=== PATIENT | female | born 1975 | race Hispanic/Latino ===

== ENCOUNTER 2021-06-18 08:07 | Emergency (ER) | payer BC ==
--- OUTSIDE RECORDS SUMMARY | 2021-06-18 08:10 | XMS REPORT | Continuity of Care Document ---
:1975 Author Organization [facility] t Address [address] [place] [address] Care Team Providers Name Role Phone Igor Nieves Primary Care Physician Ethan CASH Attending Clinician ETHAN Attending Clinician Franky NOLAN Attending Clinician Payers Payer Name Policy Type Policy Number Effective Date Expiration Date S ource Problems Condition Condition Condition Status Onset Resolution Last Treating Co mments Source Name Details Category Date Date Treatment Clinician Date Controlled Controlled Disease Active 2020-02 N PI:183 type 2 type 2 2- [id number] diabetes diabetes 00:00: mellitus mellitus 00 without without complicati complicati on, on, without without long-term long-term current current use of use of insulin insulin Uncontroll Uncontroll Disease Active N PI:183 ed type 2 ed type 2 06-06 1318 781 diabetes diabetes 00:00: mellitus mellitus 00 with with hyperglyce hyperglyce santosh santosh Acquired Acquired Disease Active NPI:1 83 hypothyroi hypothyroi 06-06 13 60253 dism dism 00:00: 00 Mixed Mixed Disease Active NPI:183 hyperlipid hyperlipid 06-06 13 34085 emia emia 00:00: 00 Essential Essential Disease Active NPI :183 hypertensi hypertensi 06-06 13 91484 on on 00:00: 00 Thyroid Thyroid Disease Active NPI:183 cyst cyst 06-06 [id number] 00:00: 00 Iron Iron Disease Active NPI:183 deficiency deficiency 06-06 62669 anemia due anemia due 00:00: to chronic to chronic 00 blood loss blood loss Other Other Disease Active 2012-02 NPI:183 malaise malaise 0 [id number] and and 00:00: fatigue fatigue 00 Hyperthyro Hyperthyro Disease Active 2012-02 N PI:183 idism idism 0- [id number] 00:00: 00 Allergies, Adverse Reactions, Alerts Allergy Allergy Status Severity Reaction(s) Onset Inactive Treating Comm ents Source Name Type Date Date Clinician NO KNOWN Drug Active NPI:183 ALLERGIE Class [id number] S Social History Social Habit Start Date Stop Date Quantity Comments Source Exposure to 2021-04-22 2021-05-22 Unable to assess NPI:[id number] SARS-CoV-2 00:00:00 15:18:00 (event) Alcohol intake 2021-01-16 2021-01-16 Current NPI:[id number] 00:00:00 00:00:00 non-drinker of alcohol (finding) Tobacco use and 2012-11-20 2012-11-20 Never used NPI:[id number] exposure 00:00:00 00:00:00 [birth year] NPI:[id number] 00:00:00 00:00:00 Smoking Status Start Date Stop Date Source Never smoker Medications Ordered Filled Start Stop Current Ordering Indication Dosage Frequency Signature Comments Components Source Medication Medication Date Date Medication? Clinician (SIG) Name Name empaglifloz Yes [id number] 10mg Take 1 NPI:183 in 4-12 tablet by [id number] (JARDIANCE) 00:00: mouth 10 mg 00 daily. semaglutide Yes [id number] 14mg Take 14 mg NPI:183 (RYBELSUS) 4-12 by mouth 06307 81 14 mg Tab 00:00: every 00 morning. empaglifloz Yes [id number] 10mg Take 1 NPI:183 in 4-12 tablet by [id number] (JARDIANCE) 00:00: mouth 10 mg 00 daily. semaglutide Yes [id number] 14mg Take 14 mg NPI:183 (RYBELSUS) 4-12 by mouth 84711 81 14 mg Tab 00:00: every 00 morning. empaglifloz Yes [id number] 10mg Take 1 NPI:183 in 4-12 tablet by [id number] (JARDIANCE) 00:00: mouth 10 mg 00 daily. semaglutide Yes [id number] 14mg Take 14 mg NPI:183 (RYBELSUS) 4-12 by mouth [id number] 81 14 mg Tab 00:00: every 00 morning. atorvastati 2020-02 Yes [id number] 10mg Take 1 NPI:183 n 10 mg 2-07 tablet by [id number] tablet 00:00: mouth at 00 bedtime. metformin 2020-02 Yes [id number] 1000mg Take 2 NPI:183 ER 500 mg 2-07 tablets by [id number] 24 hr 00:00: mouth 2 tablet 00 (two) times daily with meals. levothyroxi 2020-02 Yes [id number] 100ug Take 1 NPI:183 ne 100 mcg 2-07 tablet by [id number] tablet 00:00: mouth 00 every morning. atorvastati 2020-02 Yes [id number] 10mg Take 1 NPI:183 n 10 mg 2-07 tablet by [id number] tablet 00:00: mouth at 00 bedtime. metformin 2020-02 Yes [id number] 1000mg Take 2 NPI:183 ER 500 mg 2-07 tablets by [id number] 24 hr 00:00: mouth 2 tablet 00 (two) times daily with meals. levothyroxi 2020-02 Yes [id number] 100ug Take 1 NPI:183 ne 100 mcg 2-07 tablet by [id number] tablet 00:00: mouth 00 every morning. atorvastati 2020-02 Yes [id number] 10mg Take 1 NPI:183 n 10 mg 2-07 tablet by [id number] tablet 00:00: mouth at 00 bedtime. metformin 2020-02 Yes [id number] 1000mg Take 2 NPI:183 ER 500 mg 2-07 tablets by [id number] 24 hr 00:00: mouth 2 tablet 00 (two) times daily with meals. levothyroxi 2020-02 Yes [id number] 100ug Take 1 NPI:183 ne 100 mcg 2-07 tablet by [id number] tablet 00:00: mouth 00 every morning. empaglifloz 2020-02- No [id number] 10mg Take 1 NPI:183 in 03-19- tablet by [id number] (JARDIANCE) 00:00: 00:00 mouth 10 mg 00 :00 daily. semaglutide 2020-02- No [id number] 14mg Take 14 mg NPI:183 (RYBELSUS) 03-19-12 by mouth 1318 781 14 mg Tab 00:00: 00:00 every 00 :00 morning. empaglifloz 2020-02- No [id number] 10mg Take 1 NPI:183 in 03-19 tablet by [id number] (JARDIANCE) 00:00: 00:00 mouth 10 mg 00 :00 daily. semaglutide 2020-02 No [id number] 14mg Take 14 mg NPI:183 (RYBELSUS) 03-19 by mouth 1318 781 14 mg Tab 00:00: 00:00 every 00 :00 morning. HYDROCORTIS 2021- No [id number] Apply to NPI:183 ONE-HYDROQU 7- 04-12 area(s) at 1 610623 INONE-TRETI 00:00: 00:00 bedtime. NOIN 00 :00 1-4-0.025 % TOPICAL CREAM HYDROCORTIS 2021- No [id number] Apply to NPI:183 ONE-HYDROQU 7- 04-12 area(s) at 1 167705 INONE-TRETI 00:00: 00:00 bedtime. NOIN 00 :00 1-4-0.025 % TOPICAL CREAM fluconazole 2021- No [id number] 150mg Take 1 NPI:183 150 mg 2-18 04-12 tablet by [id number] tablet 00:00: 00:00 mouth 00 :00 every 10 (ten) days. fluconazole 2021- No [id number] 150mg Take 1 NPI:183 150 mg 2-18 04-12 tablet by [id number] tablet 00:00: 00:00 mouth 00 :00 every 10 (ten) days. citalopram Yes 20mg Take 20 mg N PI:183 (CELEXA) 20 6-07 by mouth 1318 781 mg tablet 15:03: daily. 34 citalopram Yes 20mg Take 20 mg N PI:183 (CELEXA) 20 6-07 by mouth 1318 781 mg tablet 15:03: daily. 34 citalopram Yes 20mg Take 20 mg N PI:183 (CELEXA) 20 6-07 by mouth 1318 781 mg tablet 15:03: daily. 34 Insulin 2021- No Use as NPI:183 [place], 2-05-22 directed, [id number] 81 Disposable, 00:00: 00:00 once (PEN 00 :00 weekly, NEEDLE) 31 DX:E11.9 gauge x 3/16" Ndle Insulin 2021- No Use as NPI:183 [place], 2-15 05-22 directed, [id number] 81 Disposable, 00:00: 00:00 once (PEN 00 :00 weekly, NEEDLE) 31 DX:E11.9 gauge x 3/16" Ndle metoprolol Yes TAKE 1 NPI:1 83 tartrate 25 9-05 TABLET BY 131 8781 mg tablet 00:00: MOUTH 00 TWICE A DAY metoprolol 2017-0 Yes TAKE 1 NPI:1 83 tartrate 25 9-05 TABLET BY 131 8781 mg tablet 00:00: MOUTH 00 TWICE A DAY metoprolol 2017-0 Yes TAKE 1 NPI:1 83 tartrate 25 9-05 TABLET BY 131 8781 mg tablet 00:00: MOUTH 00 TWICE A DAY Vital Signs Vital Name Observation Time Observation Value Comments Source Systolic blood pressure 2021-05-22 20:31:00 118 mm[Hg] Diastolic blood 2021-05-22 20:31:00 80 mm[Hg] NPI:1 [id number] pressure Heart rate 2021-05-22 20:31:00 77 /min NPI:1831 [id number] Body weight 2021-05-22 20:31:00 83.779 kg NPI:1831 [id number] BMI 2021-05-22 20:31:00 31.70 kg/m2 NPI:1831 [id number] Oxygen saturation in 2021-05-22 20:31:00 97 /min Arterial blood by Pulse oximetry Procedures Procedure Date / Time Performed Performing Clinician Martinez e POCT HEMOGLOBIN A1C TEST 2021-05-22 20:41:00 Bouchra Long NPI :[id number] Encounters Start End Encounter Admission Attending Care Care Encounter Source Date/Time Date/Time Type Type Clinicians Facility Department ID 2021-06-13 2021-06-[id number] NPI:183 00:00:00 00:00:00 Secure Msg Bouchra M[facility]IS[facility] [id number] [facility] [id number] [place] [id number] [facility] 2021-05-22 2021-05-22 [facility] [id number] NPI:183 15:30:00 16:17:28 Visit Nefort collins [employer] [id number] [place] [id number] DAWIT?BLEA [id number] [place] [address] [facility] 2021-05-22 2021-05-22 Outpatient R ETHAN [facility] [id number] NPI:183 15:30:00 16:17:28 BOUCHRA [id number] 1 2019-09-01 2019-09-01 [facility] [id number] 00:00:00 00:00:00 Shira ScaliPEC [id number] [facility] [id number] [place] [id number] [facility] Results Test Description Test Time Test Comments Results Result Comments Source POCT HEMOGLOBIN A1C TEST 2021-05-22 20:43:00 Test Item Value Reference Range Interpretation Comme nts POCT HBA1C (test code = 4548-4) 7.5 % 4-6 A Lab Interpretation (test code = 75289-9) Abnormal NPI:[id number] HEMOGLOBIN A1C [id number] 20:43:00 Test Item Value Reference Range Interpretation Comments POCT HBA1C (test code = 4548-4) 7.5 % 4-6 A Lab Interpretation (test code = Abnormal 44187-7)
[2021-06-18 09:25] LABS: Absolute Lymphocytes (CBC) 1.6 K/uL (0.7-4.9); Hematocrit 32.7 % (36.0-45.0); Lymphocytes % 30.9 % (15.3-44.8); MPV 6.7 fL (7.6-11.3)
[2021-06-18 09:52] LABS: Albumin 3.8 g/dL (3.4-5.0); Bilirubin Total 0.7 mg/dL (0.2-1.0); Potassium 4.2 mmol/L (3.5-5.1); Protein, Total 7.8 g/dL (6.4-8.2)
[2021-06-18 10:18] LABS: Urine Blood Negative (Negative); Urine Glucose Trace (Negative); Urine Protein Negative (Negative); Urine Specific Gravity >=1.030 (1.005-1.030)
[2021-06-18 10:47] LABS: SARS-COV-2 RT PCR NEGATIVE (NEGATIVE)
[2021-06-18 10:48] LABS: Blood Morphology Comment NOTED (NOT SEEN); Platelet Estimate ADEQ; White Blood Cell Scan OK (OK)
[2021-06-18] MEDS ORDERED: NA CHLORIDE 0.9% 1,000 ML ONE (10:48)
[2021-06-18] MEDS ORDERED: DIPHENHYDRAMINE 50 MG/ML VIAL ONE (10:48)
[2021-06-18] MEDS ORDERED: METOCLOPRAMIDE 10 MG/2mL INJ ONE (10:48)
[2021-06-18 10:49] LABS: Anisocytosis 1+; Elliptocytes 1+; Hypochromasia 1+; Platelets, Giant FEW; Poikilocytosis 1+
--- NOTE | 2021-06-18 13:18 | EDPHYS ---
Physician Documentation [facility] Name: Rui Cartwright Age: 46 yrs Sex: Female : 1975 Arrival Date: 06/18/2021 Time: 08:08 Bed 26 Private MD: ED Physician Hugo Hayes HPI: 06/18 09:00 This 46 yrs old Female presents to ER via Ambulatory with complaints of jmm Nausea, Headache. 09:00 The patient presents to the emergency department with nausea, vomiting, diarrhea, jmm abdominal pain. Onset: The symptoms/episode began/occurred gradually, 3 day(s) ago. Possible causes: unknown. The symptoms are aggravated by nothing. The symptoms are alleviated by nothing. Associated signs and symptoms: Pertinent positives: abdominal pain. This is a 46 year old female with a history of dm that presents to the ED with complaints of left sided headache which was gradual onset. Patient states she has bene unable to tolerate fluids since yesterday. Also complains of diarrhea with left upper quadrant abdominal pain. . Historical: - Allergies: 08:59 No Known Allergies; iw - PMHx: 08:59 Diabetes mellitus; iw ROS: 09:00 Constitutional: Negative for fever, chills, and weight loss, Cardiovascular: Negative jmm for chest pain, palpitations, and edema, Respiratory: Negative for shortness of breath, cough, wheezing, and pleuritic chest pain. 09:00 Abdomen/GI: Positive for abdominal pain, nausea and vomiting, diarrhea. 09:00 Neuro: Positive for headache. 09:00 All other systems are negative. Exam: 09:00 Constitutional: This is a well developed, well nourished patient who is awake, alert, jmm and in no acute distress. Head/Face: atraumatic. Eyes: EOMI, no conjunctival erythema appreciated ENT: Moist Mucus Membranes Neck: Trachea midline, Supple Chest/axilla: Normal chest wall appearance and motion. Cardiovascular: Regular rate and rhythm. No edema appreciated Respiratory: Normal respirations, no respiratory distress appreciated 09:00 Back: Normal ROM Skin: General appearance color normal MS/ Extremity: Moves all extremities, no obvious deformities appreciated, no edema noted to the lower extremities Neuro: Awake and alert Psych: Behavior is normal, Mood is normal, Patient is cooperative and pleasant 09:00 Abdomen/GI: Inspection: abdomen appears normal, Bowel sounds: normal, Palpation: abdomen is soft and non-tender, in all quadrants. Vital Signs: 08:59 BP 140 / 98; Pulse 83; Resp 16; Temp 98.5; Pulse Ox 99% on R/A; iw 12:00 BP 128 / 82; Pulse 78; Resp 18 S; Pulse Ox 99% on R/A; aa5 MDM: 09:00 Patient medically screened. [facility] 13:16 Data reviewed: vital signs, nurses notes. Counseling: I had a detailed discussion with [facility] the patient and/or guardian regarding: the historical points, exam findings, and any diagnostic results supporting the discharge/admit diagnosis, lab results, the need for outpatient follow up, to return to the emergency department if symptoms worsen or persist or if there are any questions or concerns that arise at home. ED course: No pain on palpation of the abdomen. Patient advised to follow up with pcp and otherwise given strict return precautions. Patient understood and agrees with the plan of care. . 13:16 ED course: Patient states feeling much better on reevaluation. No abdominal pain on [facility] reevaluation. Headache has resolved. I do not suspect meningitis or sah. Patient otherwise given strict return precautions. Patient understood and agrees with the plan of care. . 06/18 09:00 Order name: CBC with Diff; Complete Time: 10:56 [facility] 06/18 09:00 Order name: CMP; Complete Time: 10:08 [facility] 06/18 09:00 Order name: Lipase; Complete Time: 10:08 [facility] 06/18 09:01 Order name: COVID-19/FLU A+B (Document "Date of Onset" if Symptomatic); Complete Time: [facility] 10:47 06/18 10:19 Order name: Urine Dipstick-Ancillary; Complete Time: 10:26 [facility] 06/18 09:00 Order name: IV Saline Lock; Complete Time: 09:14 [facility] 06/18 09:00 Order name: Labs collected and sent; Complete Time: 09:14 [facility] 06/18 09:00 Order name: Urine Dipstick-Ancillary (obtain specimen); Complete Time: 10:22 [facility] 06/18 10:49 Order name: CBC Smear Scan; Complete Time: 10:56 EDMS Administered Medications: 10:08 CANCELLED (other medication usedd): Zofran (Ondansetron) 4 mg IVP once; over 2 minutes [facility] 10:51 Drug: NS 0.9% 1000 ml Route: IV; Rate: 1 bolus; Site: right antecubital; aa5 12:00 Follow up: IV Status: Completed infusion; IV Intake: 1000ml 10:51 Drug: Reglan (metoCLOPramide) 20 mg Route: IVP; Site: right antecubital; aa5 11:20 Follow up: Response: No adverse reaction aa5 10:51 Drug: diphenhydrAMINE 12.5 mg Route: IVP; Site: right antecubital; aa5 11:00 Follow up: Response: No adverse reaction aa5 Disposition Summary: 06/18/21 13:18 Discharge Ordered Location: Home [facility] Condition: Stable [facility] Diagnosis - Vomiting jmm - Diarrhea, unspecified jmm - Headache jmm Followup: jm - With: Private Physician - When: 2 - 3 days - Reason: Recheck today's complaints, Continuance of care, Re-evaluation by your physician Discharge Instructions: - Discharge Summary Sheet jm - Diarrhea, Adult jmm - Migraine Headache jm - Vomiting, Adult jm Forms: - Medication Reconciliation Form [facility] - Thank You Letter [facility] - Antibiotic Education jmm - Prescription Opioid Use [facility] - Work release form iw Prescriptions: - ondansetron 4 mg Oral tablet,disintegrating - take 1 tablet by ORAL route every 4-6 hours As needed; 20 tablet; Refills: 0, [facility] Product Selection Permitted Signatures: Dispatcher [employer] EDMiles Neri PA PA jmm Williams, Irene, RN RN Elvia Braswell RN RN aa5 Corrections: (The following items were deleted from the chart) 10:08 10:08 Zofran (Ondansetron) 4 mg IVP once; over 2 minutes ordered. [facility]
--- NOTE | 2021-06-18 13:18 | ER ---
Nurse's Notes [facility] Name: Rui Cartwright Age: 46 yrs Sex: Female : 1975 Arrival Date: 06/18/2021 Time: 08:08 Bed 26 Private MD: Diagnosis: Vomiting;Diarrhea, unspecified;Headache Presentation: 06/18 08:58 Chief complaint: Patient states: nausea, vomiting, headache for 3 days , diarrhea iw today. Coronavirus screen: At this time, the client does not indicate any symptoms associated with coronavirus-19. Ebola Screen: Patient negative for fever greater than or equal to 101.5 degrees Fahrenheit, and additional compatible Ebola Virus Disease symptoms Patient denies exposure to infectious person. Patient denies travel to an Ebola-affected area in the 21 days before illness onset. No symptoms or risks identified at this time. Initial Sepsis Screen: Does the patient meet any 2 criteria? No. Patient's initial sepsis screen is negative. Does the patient have a suspected source of infection? No. Patient's initial sepsis screen is negative. Risk Assessment: Do you want to hurt yourself or someone else? Patient reports no desire to harm self or others. Onset of symptoms was June 16, 2021. 08:58 Method Of Arrival: Ambulatory iw 08:58 Acuity: KATE 3 iw Historical: - Allergies: 08:59 No Known Allergies; iw - PMHx: 08:59 Diabetes mellitus; iw Screenin:30 Abuse screen: Denies threats or abuse. Nutritional screening: No deficits noted. aa5 Tuberculosis screening: No symptoms or risk factors identified. Fall Risk None identified. Assessment: 10:30 General: Appears uncomfortable, Behavior is calm, cooperative. Pain: Complains of pain aa5 in left side of head Pain currently is 8 out of 10 on a pain scale. Quality of pain is described as aching, pressure, Pain began 2-3 days ago. Is continuous. Neuro: Level of Consciousness is awake, alert, obeys commands, Oriented to person, place, time, situation. Cardiovascular: Heart tones S1 S2 present Rhythm is regular. Respiratory: Airway is patent Respiratory effort is even, unlabored, Respiratory pattern is regular, symmetrical. GI: Abdomen is round non-distended, Bowel sounds present X 4 quads. Abd is soft and non tender X 4 quads. Reports diarrhea, nausea, vomiting. : No signs and/or symptoms were reported regarding the genitourinary system. EENT: No signs and/or symptoms were reported regarding the EENT system. Derm: Skin is pink, warm \\T\\ dry. Musculoskeletal: Range of motion: intact in all extremities. 10:51 Reassessment: Patient is alert, oriented x 3, equal unlabored respirations, skin aa5 warm/dry/pink. 12:00 Reassessment: Patient is alert, oriented x 3, equal unlabored respirations, skin aa5 warm/dry/pink. Patient states feeling better. 12:00 Pain: Pain currently is 5 out of 10 on a pain scale. aa5 14:45 Reassessment: Patient is alert, oriented x 3, equal unlabored respirations, skin aa5 warm/dry/pink. Patient states feeling better. Patient states symptoms have improved. Vital Signs: 08:59 BP 140 / 98; Pulse 83; Resp 16; Temp 98.5; Pulse Ox 99% on R/A; iw 12:00 BP 128 / 82; Pulse 78; Resp 18 S; Pulse Ox 99% on R/A; aa5 ED Course: 08:08 Patient arrived in ED. am2 08:59 Triage completed. 09:00 [facility] Lewis [facility] 09:00 Hugo Hayes MD is Attending Physician. [facility] 09:14 Candice Duran, SHAY is Primary Nurse. iw 09:14 Inserted saline lock: 20 gauge in right antecubital area, using aseptic technique. iw 10:09 Patient has correct armband on for positive identification. Bed in low position. Call [facility] light in reach. Warm blanket given. j2ee engineer on. Pulse ox on. 10:21 Urine collected: clean catch specimen, cloudy, COVID swab sent to lab. [facility] 10:22 COVID-19/FLU A+B (Document "Date of Onset" if Symptomatic) Sent. [facility] 10:50 Elvia Braswell, SHAY is Primary Nurse. [facility] 14:45 No provider procedures requiring assistance completed. IV discontinued, intact, aa5 bleeding controlled, No redness/swelling at site. Pressure dressing applied. Administered Medications: 10:08 CANCELLED (other medication usedd): Zofran (Ondansetron) 4 mg IVP once; over 2 minutes [facility] 10:51 Drug: NS 0.9% 1000 ml Route: IV; Rate: 1 bolus; Site: right antecubital; aa5 12:00 Follow up: IV Status: Completed infusion; IV Intake: 1000ml [facility] 10:51 Drug: Reglan (metoCLOPramide) 20 mg Route: IVP; Site: right antecubital; aa5 11:20 Follow up: Response: No adverse reaction [facility] 10:51 Drug: diphenhydrAMINE 12.5 mg Route: IVP; Site: right antecubital; aa5 11:00 Follow up: Response: No adverse reaction [facility] Intake: 12:00 IV: 1000ml; Total: 1000ml. 5 Outcome: 13:18 Discharge ordered by . [facility] 14:45 Discharged to home ambulatory. [facility] 14:45 Condition: improved 14:45 Discharge instructions given to patient, Instructed on discharge instructions, follow up and referral plans. medication usage, Demonstrated understanding of instructions, follow-up care, medications, Prescriptions given X 1. 14:51 Patient left the ED. iw Signatures: Miles Lewis PA PA [facility] Candice Duran RN Elvia Solis RN RN aa5 Martinez, Maria Mini Soriano Corrections: (The following items were deleted from the chart) 19:48 10:22 Inserted saline lock: cherie schwartz
[2021-06-18 15:39] VITALS: BP 140/98; TEMP 98.5; O2SAT 99
== END 2021-06-18 14:51 | disposition home or self-care (01) ==
LOC: ER 08:07
DX: R11.2 Nausea with vomiting, unspecified (principal); R51.9 Headache, unspecified; R19.7 Diarrhea, unspecified; E11.9 Type 2 diabetes mellitus without complications; Z20.822 Contact with and (suspected) exposure to COVID-19
CPT/HCPCS: 96361; 85025; 36415; 81003; 83690; 80053; 0240U; 96375; 96374; 99284; J2765; J1200; J7030

== ENCOUNTER 2021-09-06 10:02 | Observation (INO) | payer BC ==
[2021-09-06] MEDS ORDERED: NA CHLORIDE 0.9% 1,000 ML ONE (10:32)
[2021-09-06 10:44] LABS: Absolute Lymphocytes (CBC) 1.9 K/uL (0.7-4.9); Hematocrit 31.8 % (36.0-45.0); Lymphocytes % 38.8 % (15.3-44.8); MCV 66.2 fL (80-100); MPV 6.7 fL (7.6-11.3); RBC Red Blood Cell Count 4.81 M/uL (3.86-4.86)
[2021-09-06 10:56] LABS: Protime INR 1.02
--- NOTE | 2021-09-06 11:00 | RAD REPORT ---
EXAM DESCRIPTION: CT - Head Brain Wo Cont - 09/06/2021 10:53 am CLINICAL HISTORY: Syncope, simple, abnormal neuro exam COMPARISON: HEAD BRAIN W O CONTRAST dated 03/20/2007 TECHNIQUE: All CT scans are performed using dose optimization technique as appropriate and may inclu de automated exposure control or mA/KV adjustment according to patient size. FINDINGS: No intracranial hemorrhage, hydrocephalus or extra-axial fluid collection.No areas of brai n edema or evidence of midline shift. The paranasal sinuses and mastoids are clear. The calvarium is intact. IMPRESSION: No acute intracranial abnormality.
[2021-09-06 11:03] LABS: Albumin 3.8 g/dL (3.4-5.0); Bilirubin Direct 0.2 mg/dL (0-0.2); Bilirubin Total 0.5 mg/dL (0.2-1.0); Magnesium 2.2 mg/dL (1.8-2.4); Potassium 4.3 mmol/L (3.5-5.1); Protein, Total 7.7 g/dL (6.4-8.2); Troponin High Sensitivity 3.1 pg/mL (<58.9)
[2021-09-06 11:05] LABS: SARS-CoV-2 Antigen Rapid Res Negative (Negative)
--- NOTE | 2021-09-06 11:08 | RAD REPORT ---
EXAM DESCRIPTION: RAD - Chest Single View - 09/06/2021 11:01 am CLINICAL HISTORY: COUGH COMPARISON: CHEST SINGLE VIEW dated 10/02/2011; CHEST SINGLE VIEW dated 11/14/2008 FINDINGS: Lines: None. Lungs: No evidence of edema or pneumonia. Pleural: No significant pleural effusions or pneumothorax. Cardiac: Stable size and configuration. Bones: No acute fractures. Other: IMPRESSION: No acute cardiopulmonary disease.
[2021-09-06] MEDS ORDERED: METHYLPREDNISOLONE 125 MG INJ ONE (11:56)
[2021-09-06] MEDS ORDERED: DIPHENHYDRAMINE 50 MG/ML VIAL ONE (11:56)
[2021-09-06] MEDS ORDERED: FAMOTIDINE 20 MG/2 ML VIAL IV ONE (11:57)
[2021-09-06] MEDS ORDERED: NA CHLORIDE 0.9% 2,000 ML ONE (11:57)
[2021-09-06] MEDS ORDERED: FOLIC ACID 5 MG/ML VIAL ONE (11:58)
[2021-09-06] MEDS ORDERED: TENECTEPLASE 50 MG/10 ML VIAL IV ONE (11:59)
--- NOTE | 2021-09-06 12:02 | EDPHYS ---
Physician Documentation [facility] Name: Rui Cartwright Age: 46 yrs Sex: Female : 1975 Arrival Date: 09/06/2021 Time: 10:03 Bed 6 Private MD: ED Physician Hugo Hayes HPI: 09/06 11:52 This 46 yrs old Female presents to ER via EMS with complaints of Near Syncope, issa General Weakness. 11:52 The patient has experienced near-syncope, almost passed out, felt dizzy. Onset: The issa symptoms/episode began/occurred at 09:05. Duration: This was a single episode, that lasted an unknown period of time. Context: the episode(s) was witnessed, by co-worker(s). Associated injury: The patient did not suffer any apparent associated injury. Associated signs and symptoms: The patient has no apparent associated signs or symptoms. Current symptoms: paralysis or paresis, of the left arm and left leg, that is mild. The patient has not experienced similar symptoms in the past. 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 - Social history:: Smoking status: Patient denies any tobacco usage or history of. - Family history:: not pertinent. ROS: 11:52 Constitutional: Negative for fever, chills, and weight loss, Eyes: Negative for injury, issa pain, redness, and discharge, ENT: Negative for injury, pain, and discharge, Neck: Negative for injury, pain, and swelling, Cardiovascular: Negative for chest pain, palpitations, and edema, Respiratory: Negative for shortness of breath, cough, wheezing, and pleuritic chest pain, Abdomen/GI: Negative for abdominal pain, nausea, vomiting, diarrhea, and constipation, Back: Negative for injury and pain, : Negative for injury, bleeding, discharge, and swelling, MS/Extremity: Negative for injury and deformity, Skin: Negative for injury, rash, and discoloration, Psych: Negative for depression, anxiety, suicide ideation, homicidal ideation, and hallucinations, Allergy/Immunology: Negative for hives, rash, and allergies, Endocrine: Negative for neck swelling, polydipsia, polyuria, polyphagia, and marked weight changes, Hematologic/Lymphatic: Negative for swollen nodes, abnormal bleeding, and unusual bruising. 11:52 Neuro: Positive for dizziness, near syncope, weakness, of the left arm and left leg. Exam: 11:52 Constitutional: This is a well developed, well nourished patient who is awake, alert, issa and in no acute distress. Head/Face: Normocephalic, atraumatic. Eyes: Pupils equal round and reactive to light, extra-ocular motions intact. Lids and lashes normal. Conjunctiva and sclera are non-icteric and not injected. Cornea within normal limits. Periorbital areas with no swelling, redness, or edema. ENT: Nares patent. No nasal discharge, no septal abnormalities noted. Tympanic membranes are normal and external auditory canals are clear. Oropharynx with no redness, swelling, or masses, exudates, or evidence of obstruction, uvula midline. Mucous membranes moist. Neck: Trachea midline, no thyromegaly or masses palpated, and no cervical lymphadenopathy. Supple, full range of motion without nuchal rigidity, or vertebral point tenderness. No Meningismus. Chest/axilla: Normal chest wall appearance and motion. Nontender with no deformity. No lesions are appreciated. Cardiovascular: Regular rate and rhythm with a normal S1 and S2. No gallops, murmurs, or rubs. Normal PMI, no JVD. No pulse deficits. Respiratory: Lungs have equal breath sounds bilaterally, clear to auscultation and percussion. No rales, rhonchi or wheezes noted. No increased work of breathing, no retractions or nasal flaring. Abdomen/GI: Soft, non-tender, with normal bowel sounds. No distension or tympany. No guarding or rebound. No evidence of tenderness throughout. Back: No spinal tenderness. No costovertebral tenderness. Full range of motion. Skin: Warm, dry with normal turgor. Normal color with no rashes, no lesions, and no evidence of cellulitis. MS/ Extremity: Pulses equal, no cyanosis. Neurovascular intact. Full, normal range of motion. Psych: Awake, alert, with orientation to person, place and time. Behavior, mood, and affect are within normal limits. 11:52 Neuro: Orientation: to person, place, time, situation, Mentation: is normal, appropriate for stated age, no acute changes, Memory: is normal, appropriate for stated age, no acute changes, Cranial nerves: grossly normal, is grossly normal based on the patient's age, Cerebellar function: is grossly normal, is grossly normal based on the patient's age, no acute changes, Motor: moves all fours, strength is 4/5 in the left arm and left leg, Sensation: light touch is decreased in the left arm and left leg, Gait: not tested. 12:06 ECG was reviewed by the Attending Physician. issa Vital Signs: 10:03 BP 144 / 83; Pulse 65; Resp 18; Temp 98.0; Pulse Ox 100% ; Weight 81.65 kg; Height 5 ap3 ft. 4 in. (162.56 cm); 10:43 BP 115 / 67; Pulse 72; Pulse Ox 100% ; ap3 11:39 BP 136 / 90; Pulse 64; Pulse Ox 100% on R/A; ap3 12:07 BP 128 / 74; Pulse 70; ap3 12:22 BP 122 / 83; Pulse 70; ap3 12:37 BP 114 / 62; Pulse 74; ap3 12:52 BP 136 / 90; Pulse 73; ap3 13:38 BP 114 / 67; Pulse 66; Resp 17; Pulse Ox 100% on R/A; tw2 14:30 BP 118 / 71; Pulse 71; Resp 17; Pulse Ox 99% on R/A; tw2 15:49 BP 112 / 77; Pulse 78; Resp 17; Pulse Ox 98% on R/A; tw2 17:01 BP 121 / 78; Pulse 101; Resp 17; Pulse Ox 98% on R/A; tw2 17:43 BP 125 / 80; Pulse 76; Pulse Ox 98% on R/A; ap3 18:07 BP 117 / 71; Pulse 101; Pulse Ox 100% ; ap3 18:34 BP 126 / 83; Pulse 90; Pulse Ox 98% on R/A; ap3 19:30 BP 114 / 71; Pulse 96; Resp 16; Pulse Ox 97% ; jb4 10:03 Body Mass Index 30.90 (81.65 kg, 162.56 cm) ap3 NIH Stroke Scale Scores: 11:50 NIHSS Score: 3 ap3 11:50 NIHSS Score: 3 issa Zunilda Coma Score: 11:52 Eye Response: spontaneous(4). Verbal Response: oriented(5). Motor Response: obeys [facility] commands(6). Total: 15. MDM: 10:13 Patient medically screened. issa 11:58 Differential Diagnosis: cardiac arrhythmia, cerebrovascular accident. Data reviewed: [facility] vital signs, nurses notes, EMS record, lab test result(s), EKG, radiologic studies, CT scan, MRI, plain films. 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 Test interpretation: by ED physician or midlevel provider: ECG, plain radiologic studies. Counseling: I had a detailed discussion with the patient and/or guardian regarding: the historical points, exam findings, and any diagnostic results supporting the discharge/admit diagnosis, lab results, radiology results, the need for further work-up and treatment in the hospital. 09/06 10:16 Order name: Basic Metabolic Panel; Complete Time: 12:32 [facility] 09/06 10:16 Order name: CBC with Diff; Complete Time: 12:32 [facility] 09/06 10:16 Order name: D-Dimer; Complete Time: 12:32 [facility] 09/06 10:16 Order name: LFT's; Complete Time: 12:32 [facility] 09/06 10:16 Order name: Magnesium; Complete Time: 12:32 [facility] 09/06 10:16 Order name: NT PRO-BNP; Complete Time: 12:32 [facility] 09/06 10:16 Order name: PT-INR; Complete Time: 12:32 [facility] 09/06 10:16 Order name: Troponin HS; Complete Time: 12:32 [facility] 09/06 10:16 Order name: Flu; Complete Time: 12:32 [facility] 09/06 10:16 Order name: SARS RAPID; Complete Time: 12:32 [facility] 09/06 10:50 Order name: CBC Smear Scan; Complete Time: 12:32 [facility] 09/06 11:41 Order name: CRP; Complete Time: 13:36 [facility] 09/06 11:41 Order name: Sed Rate; Complete Time: 13:36 [facility] 09/06 11:50 Order name: Lipid Profile; Complete Time: 12:32 [facility] 09/06 10:16 Order name: XRAY Chest (1 view); Complete Time: 12:32 [facility] 09/06 10:16 Order name: CT Head Brain wo Cont; Complete Time: 12:32 [facility] 09/06 11:45 Order name: CT Head Angio; Complete Time: 13:36 [facility] 09/06 11:45 Order name: CT Neck Angio; Complete Time: 13:59 [facility] 09/06 13:30 Order name: Brain Wo Cont; Complete Time: 13:59 [facility] 09/06 20:20 Order name: Glucose, Ancillary Testing [facility] 09/06 20:38 Order name: Troponin High Sensitivity [facility] 09/06 10:16 Order name: EKG; Complete Time: 10:21 [facility] 09/06 10:16 Order name: Cardiac monitoring; Complete Time: 10:22 [facility] 09/06 10:16 Order name: EKG - Nurse/Tech; Complete Time: 10:30 [facility] 09/06 10:16 Order name: IV Saline Lock; Complete Time: 10:21 [facility] 09/06 10:16 Order name: Labs collected and sent; Complete Time: 10:30 [facility] 09/06 10:16 Order name: O2 Per Protocol; Complete Time: 10:21 [facility] 09/06 10:16 Order name: O2 Sat Monitoring; Complete Time: 10:21 [facility] 09/06 10:16 Order name: Urine Dipstick-Ancillary (obtain specimen); Complete Time: 13:39 [facility] 09/06 10:16 Order name: Urine Test (obtain specimen); Complete Time: 13:39 issa EC:06 Rate is 67 beats/min. Rhythm is regular. QRS [place] is Normal. MS interval is normal. QRS issa interval is normal. QT interval is normal. No Q waves. T waves are Normal. No ST changes noted. Clinical impression: NSR w/ Non-specific ST/T Changes and No evidence of ischemia. Interpreted by me. Reviewed by me. Administered Medications: 10:30 Drug: NS 0.9% 1000 ml Route: IV; Rate: 1 bolus; Site: left antecubital; ap3 13:39 Follow up: IV Status: Completed infusion ap3 12:00 Drug: Pepcid (famotidine) 20 mg Route: IVP; Site: left antecubital; tw2 13:06 Follow up: Response: No adverse reaction tw2 12:00 Drug: NS 0.9% 1000 ml Route: IV; Rate: 125 ml/hr; Site: left antecubital; tw2 12:02 Drug: Benadryl (diphenhydrAMINE) 25 mg Route: IVP; Site: left antecubital; tw2 13:06 Follow up: Response: No adverse reaction tw2 12:04 Drug: foLIC Acid 1 mg Route: IVPB; Site: left antecubital; tw2 12:04 Follow up: IV Status: Completed infusion; IV Intake: 0.2ml tw2 12:07 Drug: TNK FOR STROKE - Tenecteplase 0.25 mg/kg {Co-Signature: tw2 (Delmis Ta ap3 RN).} Route: IV; Rate: per protocol; Site: left antecubital; 12:07 Follow up: IV Status: Completed infusion ap3 13:38 Follow up: Response: No adverse reaction ap3 12:07 Drug: SOLU-Medrol (methylPrednisoLONE) 125 mg Route: IVP; Site: left antecubital; tw2 13:06 Follow up: Response: No adverse reaction tw2 12:14 Drug: Lipitor (atorvastatin) 40 mg Route: PO; tw2 13:06 Follow up: Response: No adverse reaction tw2 Disposition Summary: 09/06/21 12:01 Hospitalization Ordered Hospitalization Status: Inpatient Admission issa Provider: Brock Espinoza cha Location: Intensive Care Unit issa Condition: Fair issa Problem: new issa Symptoms: have improved issa Bed/Room Type: Standard issa Room Assignment: 6-(09/06/21 19:42) Diagnosis - Cerebral infarction, unspecified issa - Dizziness and giddiness issa - Weakness issa - Anemia, unspecified issa Forms: - Medication Reconciliation Form issa - SBAR form issa NIH Stroke Scale - NIH Stroke Score Date: 09/06/2021 Time: 11:50 Total Score = 3 1a. Level of Consciousness (LOC) - 0(Alert) 1b. Level of Consciousness (LOC) (Month \T\ Age) - 0(Both) 1c. LOC Commands (Open \T\ Closes Eyes/Spot Welder Line) - 0(Both) 2. Best Gaze (Lateral Gaze Paresis) - 0(Normal) 3. Visual Field Loss - 0(No visual loss) 4. Facial Palsy - 0(Normal) 5a. Left Arm: Motor (10-second hold) - 1(Drift) 5b. Right Arm: Motor (10-second hold) - 0(No drift) 6a. Left Leg: Motor (5-second hold - always test supine) - 1(Drift) 6b. Right Leg: Motor (5-second hold - always test supine) - 0(No drift) 7. Limb Ataxia (finger/nose \T\ heel/schwarz - test with eyes open) - 0(Absent) 8. Sensory Loss (pinprick arms/legs/face) - 1(Mild to moderate loss) 9. Best Language: Aphasia (description/naming/reading) - 0(No aphasia) 10. Dysarthria (speech clarity - read or repeat words) - 0(Normal) 11. Extinction and Inattention (visual/tactile/auditory/spatial/personal) - 0(No abnormality) Initials: ap3 NIH Stroke Scale - NIH Stroke Score Date: 09/06/2021 Time: 11:50 Total Score = 3 1a. Level of Consciousness (LOC) - 0(Alert) 1b. Level of Consciousness (LOC) (Month \T\ Age) - 0(Both) 1c. LOC Commands (Open \T\ Closes Eyes/Spot Welder Line) - 0(Both) 2. Best Gaze (Lateral Gaze Paresis) - 0(Normal) 3. Visual Field Loss - 0(No visual loss) 4. Facial Palsy - 0(Normal) 5a. Left Arm: Motor (10-second hold) - 1(Drift) 5b. Right Arm: Motor (10-second hold) - 0(No drift) 6a. Left Leg: Motor (5-second hold - always test supine) - 1(Drift) 6b. Right Leg: Motor (5-second hold - always test supine) - 0(No drift) 7. Limb Ataxia (finger/nose \T\ heel/schwarz - test with eyes open) - 0(Absent) 8. Sensory Loss (pinprick arms/legs/face) - 1(Mild to moderate loss) 9. Best Language: Aphasia (description/naming/reading) - 0(No aphasia) 10. Dysarthria (speech clarity - read or repeat words) - 0(Normal) 11. Extinction and Inattention (visual/tactile/auditory/spatial/personal) - 0(No abnormality) Initials: issa Signatures: Dispatcher [employer] EDMS Lata Rebolledo RN Hugo Haji MD MD cha Wise, Tara RN RN tw2 Mini Baez RN RN ap3 Delmis Ta RN tw2 Corrections: (The following items were deleted from the chart) 13:30 11:45 MR STROKE PROTOCOL+MRI.RAD.BRZ ordered. EDMS EDMS 19:42 12:01 issa brown
--- NOTE | 2021-09-06 12:02 | ER ---
Nurse's Notes [facility] Name: Rui Cartwright Age: 46 yrs Sex: Female : 1975 Arrival Date: 09/06/2021 Time: 10:03 Bed 6 Private MD: Diagnosis: Cerebral infarction, unspecified;Dizziness and giddiness;Weakness;Anemia, unspecified Presentation: 09/06 10:03 Chief complaint: EMS states: patient states she was working inside when she began to ap3 feel weak, short of breath and felt a near syncopal episode. Coronavirus screen: At this time, the client does not indicate any symptoms associated with coronavirus-19. Ebola Screen: No symptoms or risks identified at this time. Initial Sepsis Screen: Does the patient meet any 2 criteria? No. Patient's initial sepsis screen is negative. Does the patient have a suspected source of infection? No. Patient's initial sepsis screen is negative. Risk Assessment: Do you want to hurt yourself or someone else? Patient reports no desire to harm self or others. Onset of symptoms was September 06, 2021 at 09:15. 10:03 Method Of Arrival: EMS: [facility] ap3 10:03 Acuity: KATE 3 ap3 10:09 Care prior to arrival: IV initiated. 20 GA, in the left antecubital area. ap3 Triage Assessment: 10:07 General: Appears distressed, Behavior is calm, cooperative. General: Reports fatigue ap3 for. Pain: Denies pain. Neuro: Level of Consciousness is awake, alert, obeys commands, Oriented to person, place, time, situation, Speech is normal. Neuro: Reports a syncopal episode weakness. Cardiovascular: Patient's skin is warm and dry. Respiratory: Airway is patent Respiratory effort is even, unlabored. [employer] REPAIR: 10:08 LMP 08/14/2021 ap3 Historical: - Allergies: 10:06 shrimp; ap3 - Home Meds: 10:06 citalopram oral [Active]; metformin Oral [Active]; Metoprolol Tartrate Oral [Active]; ap3 - PMHx: 10:06 diabetes mellitus; Anxiety; Hypertensive disorder; ap3 - Immunization history:: Client reports receiving the 2nd dose of the Covid vaccine. - Social history:: Smoking status: Patient denies any tobacco usage or history of. - Family history:: not pertinent. Screenin:07 Abuse screen: Denies threats or abuse. Nutritional screening: No deficits noted. ap3 Tuberculosis screening: No symptoms or risk factors identified. 10:08 Fall Risk No fall in past 12 months (0 pts). Secondary diagnosis (15 points) near ap3 syncope. IV access (20 points). Ambulatory Aid- None/Bed Rest/Nurse Assist (0 pts). Gait- Weak (10 pts.). Mental Status- Oriented to own ability (0 pts). Total Paez Fall Scale indicates Low Risk Score (25-44 pts). Fall prevention measures have been instituted. Side Rails Up X 2 Placed close to Nursing Station Frequent Obs/Assesments occuring As available Patient and Family Educated on Fall Prevention Program and strategies. Assessment: 11:36 Reassessment: provider at bedside at this time. tw2 11:43 General: patient informed provider that she started having left sided weakness at 0905 ap3 this morning. . 12:07 Reassessment: [;ease see OV thrombolytic vital sign and neurological flowsheet for ap3 continued NIH and vital signs. 13:38 Reassessment: Patient appears in no apparent distress at this time. No changes from tw2 previously documented assessment. Patient and/or family updated on plan of care and expected duration. Pain level reassessed. Patient is alert, oriented x 3, equal unlabored respirations, skin warm/dry/pink. 14:30 Reassessment: Patient appears in no apparent distress at this time. No changes from tw2 previously documented assessment. Patient and/or family updated on plan of care and expected duration. Pain level reassessed. Patient is alert, oriented x 3, equal unlabored respirations, skin warm/dry/pink. 15:49 Reassessment: Patient appears in no apparent distress at this time. No changes from tw2 previously documented assessment. Patient and/or family updated on plan of care and expected duration. Pain level reassessed. Patient is alert, oriented x 3, equal unlabored respirations, skin warm/dry/pink. 16:27 Reassessment: No changes from previously documented assessment. Patient and/or family ap3 updated on plan of care and expected duration. Pain level reassessed. Patient is alert, oriented x 3, equal unlabored respirations, skin warm/dry/pink. patient states she is feeling her strength return, but isn't quite back to baseline. 17:01 Reassessment: Patient appears in no apparent distress at this time. No changes from tw2 previously documented assessment. Patient and/or family updated on plan of care and expected duration. Pain level reassessed. Patient is alert, oriented x 3, equal unlabored respirations, skin warm/dry/pink. 17:43 Reassessment: No changes from previously documented assessment. Patient and/or family ap3 updated on plan of care and expected duration. Pain level reassessed. Patient is alert, oriented x 3, equal unlabored respirations, skin warm/dry/pink. 18:13 Reassessment: No changes from previously documented assessment. Patient and/or family ap3 updated on plan of care and expected duration. Pain level reassessed. Patient is alert, oriented x 3, equal unlabored respirations, skin warm/dry/pink. 18:32 Reassessment: No changes from previously documented assessment. Patient and/or family ap3 updated on plan of care and expected duration. Pain level reassessed. Patient is alert, oriented x 3, equal unlabored respirations, skin warm/dry/pink. 19:30 Reassessment: Patient appears in no apparent distress at this time. Patient and/or jb4 family updated on plan of care and expected duration. Pain level reassessed. Patient is alert, oriented x 3, equal unlabored respirations, skin warm/dry/pink. Vital Signs: 10:03 BP 144 / 83; Pulse 65; Resp 18; Temp 98.0; Pulse Ox 100% ; Weight 81.65 kg; Height 5 ap3 ft. 4 in. (162.56 cm); 10:43 BP 115 / 67; Pulse 72; Pulse Ox 100% ; ap3 11:39 BP 136 / 90; Pulse 64; Pulse Ox 100% on R/A; ap3 12:07 BP 128 / 74; Pulse 70; ap3 12:22 BP 122 / 83; Pulse 70; ap3 12:37 BP 114 / 62; Pulse 74; ap3 12:52 BP 136 / 90; Pulse 73; ap3 13:38 BP 114 / 67; Pulse 66; Resp 17; Pulse Ox 100% on R/A; tw2 14:30 BP 118 / 71; Pulse 71; Resp 17; Pulse Ox 99% on R/A; tw2 15:49 BP 112 / 77; Pulse 78; Resp 17; Pulse Ox 98% on R/A; tw2 17:01 BP 121 / 78; Pulse 101; Resp 17; Pulse Ox 98% on R/A; tw2 17:43 BP 125 / 80; Pulse 76; Pulse Ox 98% on R/A; ap3 18:07 BP 117 / 71; Pulse 101; Pulse Ox 100% ; ap3 18:34 BP 126 / 83; Pulse 90; Pulse Ox 98% on R/A; ap3 19:30 BP 114 / 71; Pulse 96; Resp 16; Pulse Ox 97% ; jb4 10:03 Body Mass Index 30.90 (81.65 kg, 162.56 cm) ap3 Zunilda Coma Score: 11:52 Eye Response: spontaneous(4). Verbal Response: oriented(5). Motor Response: obeys issa commands(6). Total: 15. NIH Stroke Scale Scores: 11:50 NIHSS Score: 3 ap3 11:50 NIHSS Score: 3 [facility] ED Course: 10:03 Patient arrived in ED. tw2 10:03 Mini Baez, RN is Primary Nurse. ap3 10:05 Triage completed. ap3 10:08 Arm band placed on right wrist. ap3 10:08 Patient has correct armband on for positive identification. Placed in gown. Bed in low ap3 position. Call light in reach. Side rails up X2. Pulse ox on. NIBP on. Door closed. Noise minimized. 10:09 Maintain EMS IV. Dressing intact. Good blood return noted. Site clean \T\ dry. Gauge \T\ ap 3 site: 20g left AC. 10:13 Hugo Hayes MD is Attending Physician. issa 10:54 CT Head Brain wo Cont In Process Unspecified. EDMS 11:03 XRAY Chest (1 view) In Process Unspecified. EDMS 12:00 Brock Espinoza is Hospitalizing Provider. issa 13:05 CT Head Angio In Process Unspecified. EDMS 13:09 CT Neck Angio In Process Unspecified. EDMS 13:31 Brain Wo Cont In Process Unspecified. EDMS 18:32 No provider procedures requiring assistance completed. ap3 19:27 Primary Nurse role handed off by Mini Baez, RN em1 21:04 Patient admitted, IV remains in place. jb4 Administered Medications: 10:30 Drug: NS 0.9% 1000 ml Route: IV; Rate: 1 bolus; Site: left antecubital; ap3 13:39 Follow up: IV Status: Completed infusion ap3 12:00 Drug: Pepcid (famotidine) 20 mg Route: IVP; Site: left antecubital; tw2 13:06 Follow up: Response: No adverse reaction tw2 12:00 Drug: NS 0.9% 1000 ml Route: IV; Rate: 125 ml/hr; Site: left antecubital; tw2 12:02 Drug: Benadryl (diphenhydrAMINE) 25 mg Route: IVP; Site: left antecubital; tw2 13:06 Follow up: Response: No adverse reaction tw2 12:04 Drug: foLIC Acid 1 mg Route: IVPB; Site: left antecubital; tw2 12:04 Follow up: IV Status: Completed infusion; IV Intake: 0.2ml tw2 12:07 Drug: TNK FOR STROKE - Tenecteplase 0.25 mg/kg {Co-Signature: tw2 (Delmis Ta ap3 RN).} Route: IV; Rate: per protocol; Site: left antecubital; 12:07 Follow up: IV Status: Completed infusion ap3 13:38 Follow up: Response: No adverse reaction ap3 12:07 Drug: SOLU-Medrol (methylPrednisoLONE) 125 mg Route: IVP; Site: left antecubital; tw2 13:06 Follow up: Response: No adverse reaction tw2 12:14 Drug: Lipitor (atorvastatin) 40 mg Route: PO; tw2 13:06 Follow up: Response: No adverse reaction tw2 Medication: 11:36 VIS not applicable for this client. tw2 Intake: 12:04 IV: 0ml; Total: 0ml. tw2 Outcome: 12:01 Decision to Hospitalize by Provider. issa 21:03 Admitted to ICU accompanied by nurse, via stretcher, room 6, on monitor, with chart, jb4 Report called to Gisele 21:03 Condition: stable 21:03 Discharge instructions given to patient, family, Instructed on the need for admit, Demonstrated understanding of instructions. 21:04 Patient left the ED. jb4 NIH Stroke Scale - NIH Stroke Score Date: 09/06/2021 Time: 11:50 Total Score = 3 1a. Level of Consciousness (LOC) - 0(Alert) 1b. Level of Consciousness (LOC) (Month \T\ Age) - 0(Both) 1c. LOC Commands (Open \T\ Closes Eyes/[employer]) - 0(Both) 2. Best Gaze (Lateral Gaze Paresis) - 0(Normal) 3. Visual Field Loss - 0(No visual loss) 4. Facial Palsy - 0(Normal) 5a. Left Arm: Motor (10-second hold) - 1(Drift) 5b. Right Arm: Motor (10-second hold) - 0(No drift) 6a. Left Leg: Motor (5-second hold - always test supine) - 1(Drift) 6b. Right Leg: Motor (5-second hold - always test supine) - 0(No drift) 7. Limb Ataxia (finger/nose \T\ heel/schwarz - test with eyes open) - 0(Absent) 8. Sensory Loss (pinprick arms/legs/face) - 1(Mild to moderate loss) 9. Best Language: Aphasia (description/naming/reading) - 0(No aphasia) 10. Dysarthria (speech clarity - read or repeat words) - 0(Normal) 11. Extinction and Inattention (visual/tactile/auditory/spatial/personal) - 0(No abnormality) Initials: ap3 NIH Stroke Scale - NIH Stroke Score Date: 09/06/2021 Time: 11:50 Total Score = 3 1a. Level of Consciousness (LOC) - 0(Alert) 1b. Level of Consciousness (LOC) (Month \T\ Age) - 0(Both) 1c. LOC Commands (Open \T\ Closes Eyes/[employer] Learning [employer]) - 0(Both) 2. Best Gaze (Lateral Gaze Paresis) - 0(Normal) 3. Visual Field Loss - 0(No visual loss) 4. Facial Palsy - 0(Normal) 5a. Left Arm: Motor (10-second hold) - 1(Drift) 5b. Right Arm: Motor (10-second hold) - 0(No drift) 6a. Left Leg: Motor (5-second hold - always test supine) - 1(Drift) 6b. Right Leg: Motor (5-second hold - always test supine) - 0(No drift) 7. Limb Ataxia (finger/nose \T\ heel/schwarz - test with eyes open) - 0(Absent) 8. Sensory Loss (pinprick arms/legs/face) - 1(Mild to moderate loss) 9. Best Language: Aphasia (description/naming/reading) - 0(No aphasia) 10. Dysarthria (speech clarity - read or repeat words) - 0(Normal) 11. Extinction and Inattention (visual/tactile/auditory/spatial/personal) - 0(No abnormality) Initials: issa Signatures: Dispatcher [employer] EDHugo Reveles MD MD cha Martinez, Eric em1 Delmis Ta, RN RN tw2 Victor M Jones RN RN jb4 Mini Baez RN RN ap3 Delmis Ta RN tw2
[2021-09-06 12:16] LABS: Blood Morphology Comment NOTED (NOT SEEN); Platelet Estimate ADEQ; White Blood Cell Scan OK (OK)
[2021-09-06 12:17] LABS: Anisocytosis 1+; Hypochromasia 1+
[2021-09-06] MEDS ORDERED: ATORVASTATIN 20 MG TAB ONE (12:19)
--- NOTE | 2021-09-06 13:28 | RAD REPORT ---
EXAM DESCRIPTION: CT - Head angio - 09/06/2021 1:03 pm CLINICAL HISTORY: Neuro deficit, acute, stroke suspected TECHNIQUE: During dynamic enhancement using nonionic IV contrast, axial 1 millimeter thick images of the head were obtained. Sagittal and axial reconstruction images were generated using MIP technique and reviewed. All CT scans are performed using dose optimization technique as appropriate and may include automated exposure control or mA/KV adjustment according to patient size. COMPARISON: CT head same date FINDINGS: No aneurysm or vascular malformation identified. Major venous sinuses are patent. No stenosis, named branch occlusion, vasculitis or other significant vascular finding identifiable. Left vertebral artery is dominant as a normal anatomic variant. Right vertebral artery appears to ter minate at the posteroinferior cerebellar artery as a normal variant. The right A1 BANG segment is smal l or absent with most or all of the right BANG circulation provided by the left-side. IMPRESSION: Negative CT angio head examination for acute finding.
--- NOTE | 2021-09-06 13:38 | RAD REPORT ---
EXAM DESCRIPTION: CT - Neck Angio - 09/06/2021 1:07 pm CLINICAL HISTORY: Neuro deficit, acute, stroke suspected TECHNIQUE: During dynamic enhancement using nonionic IV contrast, axial 2 mm thick images of the nec k were obtained. Sagittal and axial reconstruction images were generated using MIP technique and revi ewed. All CT scans are performed using dose optimization technique as appropriate and may include automated exposure control or mA/KV adjustment according to patient size. COMPARISON: CT head same date, CT angio head same date FINDINGS: No aneurysm or vascular malformation identified. No carotid or vertebral dissection. No aortic arch or great vessel origin abnormality seen. Vertebral artery origins unremarkable as well . Left vertebral artery is dominant with a small right vertebral artery terminating at the posteroinf erior cerebellar artery. This is a normal anatomic variant. No stenosis, vasculitis or other significant carotid artery finding. IMPRESSION: Negative CT angio neck examination.
--- NOTE | 2021-09-06 13:43 | RAD REPORT ---
EXAM DESCRIPTION: MRI - Brain Wo Cont - 09/06/2021 1:29 pm CLINICAL HISTORY: cva COMPARISON: MRI BRAIN W WO CONTRAST dated 03/20/2007 TECHNIQUE: Sagittal T1-weighted images were obtained along with axial PD, heavily T2-weighted and T2 -FLAIR images. Axial DWI and ADC mapping sequences were also obtained along with coronal heavily T2-w eighted images. FINDINGS: No intracranial hemorrhage, mass or acute infarction. No cortical edema or sulcal effaceme nt. There is no edema or shift of midline structures. No extra-axial fluid collections. Ortiz-matter/w karolina matter junction is preserved. Signal voids are seen as a normal finding in the major intracrania l vessels. No atrophy changes are present. Ventricles normal. Rare T2/IR hyperintense foci seen in the cerebral white matter. These are nonspecific at this age. Early chronic ischemic change is possible. Vasculiti s or migraine headache etiologies are possible. Demyelinization is unlikely. Significance of these fo ci is doubtful. Mastoid air cells and paranasal sinuses are clear. IMPRESSION: No acute infarction changes are present. As detailed above, no acute intracranial finding seen.
--- NOTE | 2021-09-06 16:02 | P.HP ---
Certification for Inpatient Patient admitted to: Observation With expected LOS: <2 Midnights Practitioner: I am a practitioner with admitting privileges, knowledge of patient current condition, hospital course, and medical plan of care. Services: Services provided to patient in accordance with Admission requirements found in Title 42 Section 412.3 of the Code of Federal Regulations Patient History Date of Service: 09/06/21 Reason for admission: Near syncope History of Present Illness: 46-year-old woman with a history of hypertension and diabetes presented to the emergency department with a complaint of sudden onset dizziness and a feeling of fainting. Symptoms occurred at the workplace, patient was in a standing position when she felt the symptoms. She stated she did not lose consciousness. Symptoms associated with chest tightness, no palpitation. She denied any prior nausea or vomiting or diarrhea or any reason for dehydration. Work-up in the emergency department has been unremarkable, MRI of the brain negative for acute CVA, CTA head and neck unremarkable, initial troponin negative, EKG shows no significant ischemic changes. Patient placed under observation for further management. Allergies No Known Allergies Allergy (Unverified 07/10/11 13:11) - Past Medical/Surgical History -: Hypertension -: Diabetes -: Hypothyroidism -: Hyperlipidemia - Family History Mother -: Hypertension, Diabetes - Social History Smoking Status: Never smoker Alcohol use: Yes Place of Residence: Home Review of Systems Other: Except as documented, all other systems reviewed and negative. Physical Examination - Physical Exam General: In no apparent distress, Oriented x3 HEENT: Atraumatic, PERRLA, Mucous membr. moist/pink, EOMI, Sclerae nonicteric Neck: Supple, JVD not distended, No Thyromegaly Respiratory: Clear to auscultation bilaterally, Normal air movement Cardiovascular: No edema, Regular rate/rhythm, Normal S1 S2, No murmurs Capillary refill: <2 Seconds Gastrointestinal: Normal bowel sounds, Soft and benign, Non-distended, No tenderness Musculoskeletal: No swelling, No tenderness Integumentary: No rashes, No cyanosis Neurological: Normal speech, Normal strength at 5/5 x4 extr, Cranial nerves 3-12 intact Lymphatics: No axilla or inguinal lymphadenopathy - Studies Laboratory Data (last 24 hrs) 09/06/21 10:34: Triglycerides 134, Cholesterol 120, HDL Cholesterol 44, Cholesterol/HDL Ratio 2.73 09/06/21 10:34: PT 11.2, INR 1.02 09/06/21 10:34: WBC 5.0, Hgb 9.8 L, Hct 31.8 L, Plt Count 421 H 09/06/21 10:34: Sodium 137, Potassium 4.3, BUN 6 L, Creatinine 0.67, Glucose 144 H, Magnesium 2.2, Total Bilirubin 0.5, AST 17, ALT 33, Alkaline Phosphatase 119 H Microbiology Data (last 24 hrs): 09/06/21 10:34 Nasopharnyx Influenza Type A Antigen Screen - Final 09/06/21 10:34 Nasopharnyx Influenza Type B Antigen Screen - Final Assessment and Plan - Problems (Diagnosis) (1) Near syncope Current Visit: Yes Status: Acute (2) DM type 2 (diabetes mellitus, type 2) Current Visit: Yes Status: Acute (3) Hypertension Current Visit: Yes Status: Acute (4) Hypothyroidism Current Visit: Yes Status: Acute (5) Microcytic anemia Current Visit: Yes Status: Acute - Plan Place patient under observation. Obtain echocardiogram. Of note, MRI of the brain, head and neck CTA all unremarkable. Patient with microcytic anemia. Check iron profile Hydrate with normal saline. Monitor H&H and transfuse as needed for hemoglobin less than 8 due to high possibility of symptomatic anemia. Reconcile and continue other home meds. Continue antihypertensives. Check TSH. Trend troponin. - Advance Directives Does patient have a Living Will: No Does patient have a Durable POA for Healthcare: No
[2021-09-06] MEDS: NA CHLORIDE 0.9% 1,000 ML IV SCH (19:34)
[2021-09-06] MEDS: INSULIN -REGULAR HUMAN 50 UNIT/0.5 ML ML SQ SCH ×2 (19:34→22:10)
[2021-09-06] MEDS ORDERED: INSULIN -REGULAR HUMAN 50 UNIT/0.5 ML ML ONE (20:24)
[2021-09-06 21:30] VITALS: BMI 31.2
[2021-09-06 21:52] VITALS: O2SAT 97
[2021-09-07 04:55] LABS: Absolute Lymphocytes (CBC) 1.4 K/uL (0.7-4.9); Hematocrit 30.1 % (36.0-45.0); Lymphocytes % 16.4 % (15.3-44.8); MCV 65.4 fL (80-100); MPV 6.8 fL (7.6-11.3)
[2021-09-07 05:14] LABS: Magnesium 2.3 mg/dL (1.8-2.4); Potassium 3.9 mmol/L (3.5-5.1); Thyroid Stimulating Hormone 0.512 uIU/mL (0.360-3.740)
[2021-09-07] MEDS: NA CHLORIDE 0.9% 1,000 ML IV SCH ×2 (05:34→08:38)
[2021-09-07] MEDS: INSULIN -REGULAR HUMAN 50 UNIT/0.5 ML ML SQ SCH ×2 (07:30→11:32)
[2021-09-07] MEDS ORDERED: ENOXAPARIN 40 MG/0.4 ML SQ SCH (09:00)
[2021-09-07] MEDS ORDERED: ACETAMINOPHEN 325 MG TABLET PO PRN (11:21)
--- NOTE | 2021-09-07 13:42 | P.DS ---
Admission Date: 09/06/21 Discharge Date: 09/07/21 Disposition: ROUTINE DISCHARGE Discharge Condition: FAIR Reason for Admission: Near syncope - Problems (1) Near syncope Current Visit: Yes Status: Acute (2) DM type 2 (diabetes mellitus, type 2) Current Visit: Yes Status: Acute (3) Hypertension Current Visit: Yes Status: Acute (4) Hypothyroidism Current Visit: Yes Status: Acute (5) Microcytic anemia Current Visit: Yes Status: Acute Brief History of Present Illness: 46-year-old woman with a history of hypertension and diabetes presented to the emergency department with a complaint of sudden onset dizziness and a feeling of fainting. Symptoms occurred at the workplace, patient was in a standing position when she felt the symptoms. She stated she did not lose consciousness. Symptoms associated with chest tightness, no palpitation. She denied any prior nausea or vomiting or diarrhea or any reason for dehydration. Patient reported left-sided weakness. Work-up in the emergency department was unremarkable, MRI of the brain negative for acute CVA, CTA head and neck unremarkable, initial troponin negative, EKG shows no significant ischemic changes. Patient given tPA for suspected stroke in the ED. She was placed under observation for further management. Hospital Course: Patient placed on observation in the ICU for post tPA monitoring. She had no lateralizing signs, no limb weakness. Patient was asymptomatic during the hospital stay. Repeat CT head no acute intracranial abnormality or hemorrhage. Clinically stable and ambulatory. Patient deemed stable for discharge. Noted she has microcytic anemia. Patient prescribed oral iron supplementation. Vital Signs/Physical Exam: Temp Pulse Resp BP Pulse Ox 97.9 F 80 17 112/69 98 09/07/21 08:00 09/07/21 09:00 09/07/21 09:00 09/07/21 09:00 09/07/21 08:00 General: Alert, In no apparent distress HEENT: Mucous membr. moist/pink Neck: JVD not distended Respiratory: Clear to auscultation bilaterally, Normal air movement Cardiovascular: Regular rate/rhythm, Normal S1 S2 Gastrointestinal: Soft and benign, Non-distended, No tenderness Musculoskeletal: No swelling Integumentary: No rashes Neurological: Normal speech, Normal strength at 5/5 x4 extr, Cranial nerves 3-12 intact Laboratory Data at Discharge: WBC 8.2 K/uL (4.3-10.9) D 09/07/21 04:30 Hgb 9.5 g/dL (12.0-15.0) L 09/07/21 04:30 Hct 30.1 % (36.0-45.0) L 09/07/21 04:30 Plt Count 441 K/uL (152-406) H 09/07/21 04:30 PT 11.2 SECONDS (9.5-12.5) 09/06/21 10:34 INR 1.02 09/06/21 10:34 Sodium 139 mmol/L (136-145) 09/07/21 04:30 Potassium 3.9 mmol/L (3.5-5.1) 09/07/21 04:30 BUN 12 mg/dL (7-18) 09/07/21 04:30 Creatinine 0.57 mg/dL (0.55-1.3) 09/07/21 04:30 Glucose 171 mg/dL (74-106) H 09/07/21 04:30 Phosphorus 3.0 mg/dL (2.5-4.9) 09/07/21 04:30 Magnesium 2.3 mg/dL (1.8-2.4) 09/07/21 04:30 Total Bilirubin 0.5 mg/dL (0.2-1.0) 09/06/21 10:34 AST 17 U/L (15-37) 09/06/21 10:34 ALT 33 U/L (12-78) 09/06/21 10:34 Alkaline Phosphatase 119 U/L (45-117) H 09/06/21 10:34 Triglycerides 134 mg/dL (<150) 09/06/21 10:34 Cholesterol 120 mg/dL (<200) 09/06/21 10:34 HDL Cholesterol 44 mg/dL (40-60) 09/06/21 10:34 Cholesterol/HDL Ratio 2.73 09/06/21 10:34 Home Medications: Aspirin [Aspirin EC 81 MG] 81 mg PO DAILY #30 09/07/21 Atorvastatin Calcium [Lipitor*] 10 mg PO DAILY 09/07/21 Empagliflozin [Jardiance] 10 mg PO DAILY 09/07/21 Escitalopram Oxalate [Lexapro] 20 mg PO DAILY 09/07/21 Iron Polysaccharide Complex [Polysaccharide Iron] 150 mg PO DAILY #30 09/07/21 Levothyroxine [Synthroid*] 100 mcg PO DAILY 09/07/21 Metformin HCl 1,000 mg PO BID 09/07/21 Metoprolol Succinate [Toprol Xl*] 25 mg PO BID 09/07/21 Semaglutide [Rybelsus] 14 mg PO DAILY 09/07/21 New Medications: Aspirin [Aspirin EC 81 MG] 81 mg PO DAILY #30 Iron Polysaccharide Complex [Polysaccharide Iron] 150 mg PO DAILY #30 Physician Discharge Instructions: PROBLEM: Near Syncope GOAL: Clear understanding of disease process INSTRUCTIONS: Please follow up with your PCP in 1-2 weeks. Aspirin EC 81mg Daily was prescribed. Please take as directed. If symptoms worsen, please go to the ER. If you have any questions regarding hospital stay, feel free to call [phone]. Diet: ADA Activity: Ad enma DME DME: Date Ordered: Name of Company: [employer] Services Needed: None Name of Company: Date or Referral: IMMUNIZATION Influenza Vaccine Indicated: Influenza Vaccine Given: Date Given: Pneumonia Vaccine Indicated: No Pneumonia Vaccine Given: Date Given: Diet: ADA Activity: Ad enma Followup: Sebastian Nieves DO, DO [Primary Care Provider] -
--- NOTE | 2021-09-07 14:30 | RAD REPORT ---
EXAM DESCRIPTION: CT - Head Brain Wo Cont - 09/07/2021 2:21 pm CLINICAL HISTORY: 24h post TNK Headache, drowsiness, CVA symptomology COMPARISON: Head angio dated 09/06/2021; Head Brain Wo Cont dated 09/06/2021 TECHNIQUE: All CT scans are performed using dose optimization technique as appropriate and may inclu de automated exposure control or mA/KV adjustment according to patient size. FINDINGS: No intracranial hemorrhage, hydrocephalus or extra-axial fluid collection.No areas of brai n edema or evidence of midline shift. The paranasal sinuses and mastoids are clear. The calvarium is intact. IMPRESSION: No acute intracranial abnormality.
--- NOTE | 2021-09-07 15:23 | EKG ---
Test Date: 2021-09-06 Test Time: 10:15:50 Record Clerk Salesperson: DANIELLE MEASUREMENT RESULTS: Intervals: Rate: 67 VT: 146 QRSD: 76 QT: 392 QTc: 414 [place]: P: 37 VT: 146 QRS: 12 T: -28 INTERPRETIVE STATEMENTS: Normal sinus rhythm Nonspecific T wave abnormality Abnormal ECG Compared to ECG 10/02/2011 09:49:57 No significant changes Electronically Signed On 09-07-21 15:20:10 CDT by Isreal Gonzalez
[2021-09-07 17:10] VITALS: BP 119/81; TEMP 97.9
--- NOTE | 2021-09-10 06:52 | ECHO ---
HEIGHT: 5 ft 4 in WEIGHT: 180 lb 0 oz DATE OF STUDY: 09/07/[address]: Brock Espinoza MD 2-DIMENSIONAL: YES M.MODE: YES DOPPLER: YES COLOR FLOW: YES TDS: PORTABLE: YES DEFINITY: BUBBLE STUDY: DIAGNOSIS: STROKE CARDIAC HISTORY: CATHERIZATION: NO SURGERY: NO PROSTHETIC VALVE: NO PACEMAKER: NO MEASUREMENTS (cm) DIASTOLIC (NORMALS) SYSTOLIC (NORMALS) IVSd 1.1 (0.6-1.2) LA Diam 3.5 (1.9-4.0) LVEF 57% LVIDd 3.7 (3.5-5.7) LVIDs 2.6 (2.0-3.5) %FS 29% LVPWd 1.1 (0.6-1.2) Ao Diam 2.2 (2.0-3.7) 2 DIMENSIONAL ASSESSMENT: RIGHT ATRIUM: NORMAL LEFT ATRIUM: NORMAL RIGHT VENTRICLE: NORMAL LEFT VENTRICLE: NORMAL TRICUSPID VALVE: NORMAL MITRAL VALVE: NORMAL PULMONIC VALVE: NORMAL AORTIC VALVE: NORMAL PERICARDIAL EFFUSION: NONE AORTIC ROOT: NORMAL LEFT VENTRICULAR WALL MOTION: NORMAL DOPPLER/COLOR FLOW: MILD TRICUSPID REGURGITATION. MILD MITRAL REGURGITATION. COMMENTS: NORMAL LEFT VENTRICULAR EJECTION FRACTION 55-60%. NORMAL WALL MOTION. MILD TRICUSPID REGURGITATION. MILD MITRAL REGURGITATION. NORMAL DIASTOLIC FUNCTION. RECOMMEND BUBBLE STUDY. TECHNOLOGIST: BHARAT CANO
== END 2021-09-07 16:40 | disposition home or self-care (01) ==
LOC: ER 10:02 → ERHOLD 15:42 → 3RD-ICU 20:31
PROVIDERS: ADMIT Internal Medicine; ATTEND Internal Medicine
DX: R55 Syncope and collapse (principal); R53.1 Weakness; D50.9 Iron deficiency anemia, unspecified; R42 Dizziness and giddiness; E11.9 Type 2 diabetes mellitus without complications; I10 Essential (primary) hypertension; E03.9 Hypothyroidism, unspecified; E78.5 Hyperlipidemia, unspecified; Z79.84 Long term (current) use of oral hypoglycemic drugs; Z79.899 Other long term (current) drug therapy; Z91.013 Allergy to seafood; Z20.822 Contact with and (suspected) exposure to COVID-19; Z82.49 Family history of ischemic heart disease and other diseases of the circulatory system; Z83.3 Family history of diabetes mellitus
CPT/HCPCS: 96361; 92977; 93005; 93306; 85025 ×2; 80048 ×2; 36415; 83735 ×2; 84100; 85610; 80061; 82947 ×4; 85379; 80076; 85652; 84443; 84484 ×3; 83540; 83880; 84466; 86140; 87804 ×2; 70450 ×2; 70496; 70498; 71045; 70551; 97116; 97161; 94760; 96375; 96374; 99285; 87811; Q9967; J1200; J1815 ×3; J3101; J1650; J7030 ×3; J2930; J3490; G0378 ×3

== ENCOUNTER 2021-10-15 05:08 | Emergency (ER) | payer BC ==
--- OUTSIDE RECORDS SUMMARY | 2021-10-15 05:11 | XMS REPORT | Continuity of Care Document ---
:1975 Author Organization [facility] t Address [address] [place] [address] Care Team Providers Name Role Phone Tavo Nieves Primary Care Physician Bouchra Long MD Attending Clinician Shira Marino Attending Clinician [phone] Payers Payer Name Policy Type Policy Number Effective Date Expiration Date S ource Problems Condition Condition Condition Status Onset Resolution Last Treating Co mments Source Name Details Category Date Date Treatment Clinician Date Controlled Controlled Disease Active 2020-02 U michael type 2 type 2 2-07 ity of diabetes diabetes 00:00: [place] mellitus mellitus 00 Medica l without without Branch complicati complicati on, on, without without long-term long-term current current use of use of insulin insulin Uncontroll Uncontroll Disease Active U michael ed type 2 ed type 2 06-06 ity of diabetes diabetes 00:00: [place] mellitus mellitus 00 Medica l with with Branch hyperglyce hyperglyce santosh santosh Acquired Acquired Disease Active Unive rs hypothyroi hypothyroi 06-06 it y of dism dism 00:00: Medical Branch Mixed Mixed Disease Active Univers hyperlipid hyperlipid 06-06 it y of emia emia 00:00: [place] 00 Medical Branch Essential Essential Disease Active Uni vers hypertensi hypertensi - it y of on on 00:00: Medical Branch Thyroid Thyroid Disease Active 2021-0 Univers cyst cyst 4-27 ity of 00:00: [place] 00 [facility] Iron Iron Disease Active Univers deficiency deficiency 4-27 it y of anemia due [place] chronic to chronic 00 Me dical blood loss blood loss Br anch Other Other Disease Active 2012-02 Univers malaise malaise 0-11 ity of and and 00:00: [place] fatigue fatigue 00 Medical Branch Hyperthyro Hyperthyro Disease Active 2012-02 U nivers idism idism 0-11 ity of 00:00: [place] 00 [facility] Allergies, Adverse Reactions, Alerts This patient has no known allergies or adverse reactions. Social History Social Habit Start Date Stop Date Quantity Comments Source Exposure to 2021-09-15 2021-09-25 Not sure [facility]-CoV-2 00:00:00 14:53:00 [facility] (event) [place] Alcohol intake 2021-01-16 2021-01-16 Current University of 00:00:00 00:00:00 non-drinker of [facility] alcohol (finding) [place] Tobacco use and 2017-12-31 2017-12-31 Smokeless tobacco Un iversity of exposure 00:00:00 00:00:00 non-user [facility] Sex Assigned At [birth year] Universit y of 00:00:00 00:00:00 [facility] Smoking Status Start Date Stop Date Source Never smoked tobacco [facility] Medications Ordered Filled Start Stop Current Ordering Indication Dosage Frequency Signature Comments Components Source Medication Medication Date Date Medication? Clinician (SIG) Name Name atorvastati Yes [id number] 10mg Take 1 Univers n 10 mg 8-16 tablet by ity of tablet 00:00: mouth at [place] 00 bedtime. Medical Branch empaglifloz Yes [id number] 10mg Take 1 Univers in 8-16 tablet by ity of (JARDIANCE[place] 10 mg 00 the Medical morning. Branch levothyroxi Yes [id number] 100ug Take 1 Univers ne 100 mcg 8-16 tablet by ity of tablet 00:00: mouth [place] 00 every Medical morning. Branch metformin Yes [id number] 1000mg Take 2 Univers ER 500 mg 8-16 tablets by ity of 24 hr 00:00: mouth in [place] tablet 00 the Medical morning Branch and 2 tablets in the evening. Take with meals. semaglutide Yes [id number] 14mg Take 14 mg Univers (RYBELSUS) 8-16 by mouth ity o f 14 mg Tab 00:00: every [place] 00 morning. Medical Branch empaglifloz 2021- No [id number] 10mg Take 1 Univers in 05-22-16 tablet by ity of (JARDIANCE) 00:00[place] 00:[place] 10 mg 00 :00 daily. Medical Branch semaglutide 2021- No [id number] 14mg Take 14 mg Univers (RYBELSUS) 05-22-16 by mouth ity of 14 mg Tab 00:00: 00:00 every [place] 00 :00 morning. Medical Branch atorvastati 2020-02- No [id number] 10mg Take 1 Univers n 10 mg 03-19 tablet by ity of tablet 00:00: 00:00 mouth at [place] 00 :00 bedtime. Medical Branch metformin 2020-02- No [id number] 1000mg Take 2 Univers ER 500 mg 03-19- tablets by ity of 24 hr 00:00: 00:00 mouth 2 [place] tablet 00 :00 (two) Medical times Branch daily with meals. levothyroxi 2020-02- No [id number] 100ug Take 1 Univers ne 100 mcg 03-19- tablet by ity of tablet 00:00: 00:00 mouth [place] 00 :00 every Medical morning. Branch citalopram Yes 20mg Take 20 mg U nivers (CELEXA) 20 6-07 by mouth ity of mg tablet 15:03: daily. [place] 34 Medical Branch metoprolol Yes TAKE 1 Unive rs tartrate 25 9-05 TABLET BY ity of mg tablet 00:00: MOUTH [place] 00 TWICE A Medical DAY Branch Vital Signs Vital Name Observation Time Observation Value Comments Source Systolic blood 2021-09-25 20:02:00 121 mm[Hg] [facility] [place] pressure Medical Branch Diastolic blood 2021-09-25 20:02:00 80 mm[Hg] Unive rsity of [place] pressure Medical [place] Heart rate 2021-09-25 20:02:00 69 /min [facility] Body height 2021-09-25 20:02:00 162.6 cm [facility] Body weight 2021-09-25 20:02:00 83.915 kg [facility] BMI 2021-09-25 20:02:00 31.76 kg/m2 [facility] Oxygen saturation 2021-09-25 20:02:00 100 /min [facility] in Arterial blood Medical Br anch by Pulse oximetry Procedures Procedure Date / Time Performed Performing Clinician Sour e POCT HEMOGLOBIN A1C 2021-09-25 20:09:00 Bouchra [facility] Encounters Start End Encounter Admission Attending Care Care Encounter Source Date/Time Date/Time Type Type Clinicians Facility Department ID 2021-09-25 2021-09-25 Office Ethan [facility] [id number] Univers 15:00:00 15:35:41 Visit [facility] [id number] it y of [place] [id number] Da as DAWIT?BLEA [id number] [address] MEDICAL OFFICE BUILDING 2019-09-01 2019-09-01 [facility] [id number] 00:00:00 00:00:00 Shira MULTISPEC [id number] [facility]AL[facility] [id number] CENTER [id number] [facility] Results Test Description Test Time Test Comments Results Result Comments Source POCT HEMOGLOBIN A1C TEST 2021-09-25 20:09:00 Test Item Value Reference Range Interpretation Comme nts POCT HBA1C (test code = 4548-4) 7.5 % 4-6 A Lab Interpretation (test code = 77448-8) Abnormal [facility]
[2021-10-15] MEDS ORDERED: NA CHLORIDE 0.9% 1,000 ML ONE (06:19)
[2021-10-15] MEDS ORDERED: BEBTELOVIMAB 175 MG/2 ML VIAL IV ONE (06:19)
[2021-10-15] MEDS ORDERED: KETOROLAC 30 MG/ML INJ ONE (06:19)
[2021-10-15] MEDS ORDERED: AZITHROMYCIN 250 MG TAB ONE (06:19)
[2021-10-15] MEDS ORDERED: FAMOTIDINE 20 MG TAB ONE (06:19)
[2021-10-15] MEDS ORDERED: ASPIRIN 81 MG CHEWABLE TABLET ONE (06:24)
[2021-10-15 06:32] LABS: Urine Blood Negative (Negative); Urine Glucose 3+ (Negative); Urine Protein Negative (Negative); Urine Specific Gravity >=1.030 (1.005-1.030)
[2021-10-15 06:33] LABS: Absolute Lymphocytes (CBC) 1.1 K/uL (0.7-4.9); Lymphocytes % 27.7 % (15.3-44.8); MPV 6.6 fL (7.6-11.3); RBC Red Blood Cell Count 4.92 M/uL (3.86-4.86)
[2021-10-15 06:42] LABS: MCV 65.1 fL (80-100)
[2021-10-15 06:49] LABS: Albumin 3.8 g/dL (3.4-5.0); Bilirubin Total 0.6 mg/dL (0.2-1.0); Potassium 3.7 mmol/L (3.5-5.1); Protein, Total 7.7 g/dL (6.4-8.2)
--- NOTE | 2021-10-15 07:19 | EDPHYS ---
Physician Documentation [facility] Name: Rui Cartwright Age: 46 yrs Sex: Female : 1975 Arrival Date: 10/15/2021 Time: 05:11 Bed 13 Private MD: ED Physician Hugo Hayes HPI: 10/15 06:08 This 46 yrs old Female presents to ER via Ambulatory with complaints of Back issa Pain, Headache. 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 - Social history:: Smoking status: Patient denies any tobacco usage or history of. ROS: 06:08 Constitutional: Negative for fever, chills, and weight loss, Eyes: Negative for injury, issa pain, redness, and discharge, ENT: Negative for injury, pain, and discharge, Neck: Negative for injury, pain, and swelling, Cardiovascular: Negative for chest pain, palpitations, and edema, Abdomen/GI: Negative for abdominal pain, nausea, vomiting, diarrhea, and constipation, : Negative for injury, bleeding, discharge, and swelling, MS/Extremity: Negative for injury and deformity, Skin: Negative for injury, rash, and discoloration, Psych: Negative for depression, anxiety, suicide ideation, homicidal ideation, and hallucinations, Allergy/Immunology: Negative for hives, rash, and allergies, Endocrine: Negative for neck swelling, polydipsia, polyuria, polyphagia, and marked weight changes, Hematologic/Lymphatic: Negative for swollen nodes, abnormal bleeding, and unusual bruising. 06:08 Respiratory: Positive for cough, with no reported sputum. 06:08 Abdomen/GI: Positive for nausea. 06:08 Back: Positive for flank pain, on the right. Exam: 06:08 Constitutional: This is a well developed, well nourished patient who is awake, alert, issa and in no acute distress. Head/Face: Normocephalic, atraumatic. Eyes: Pupils equal round and reactive to light, extra-ocular motions intact. Lids and lashes normal. Conjunctiva and sclera are non-icteric and not injected. Cornea within normal limits. Periorbital areas with no swelling, redness, or edema. ENT: Nares patent. No nasal discharge, no septal abnormalities noted. Tympanic membranes are normal and external auditory canals are clear. Oropharynx with no redness, swelling, or masses, exudates, or evidence of obstruction, uvula midline. Mucous membranes moist. Neck: Trachea midline, no thyromegaly or masses palpated, and no cervical lymphadenopathy. Supple, full range of motion without nuchal rigidity, or vertebral point tenderness. No Meningismus. Chest/axilla: Normal chest wall appearance and motion. Nontender with no deformity. No lesions are appreciated. Cardiovascular: Regular rate and rhythm with a normal S1 and S2. No gallops, murmurs, or rubs. Normal PMI, no JVD. No pulse deficits. Respiratory: Lungs have equal breath sounds bilaterally, clear to auscultation and percussion. No rales, rhonchi or wheezes noted. No increased work of breathing, no retractions or nasal flaring. Abdomen/GI: Soft, non-tender, with normal bowel sounds. No distension or tympany. No guarding or rebound. No evidence of tenderness throughout. Back: No spinal tenderness. No costovertebral tenderness. Full range of motion. Skin: Warm, dry with normal turgor. Normal color with no rashes, no lesions, and no evidence of cellulitis. MS/ Extremity: Pulses equal, no cyanosis. Neurovascular intact. Full, normal range of motion. Neuro: Awake and alert, GCS 15, oriented to person, place, time, and situation. Cranial nerves II-XII grossly intact. Motor strength 5/5 in all extremities. Sensory grossly intact. Cerebellar exam normal. Normal gait. 06:08 Musculoskeletal/extremity: DVT Exam: No signs of deep vein thrombosis. no pain, no swelling, no tenderness, negative Homans' sign noted on exam, no appreciated bluish discoloration, no erythema, no increased warmth. Vital Signs: 05:25 BP 125 / 75; Pulse 78; Resp 16; Temp 97.5; Pulse Ox 99% on R/A; Weight 83.91 kg (R); kl Height 5 ft. 4 in. (162.56 cm); Pain 10; 06:30 BP 118 / 70; Pulse 87; Resp 16 S; Pulse Ox 98% on R/A; as6 07:45 BP 119 / 77; Pulse 71; Resp 18; Pulse Ox 97% on R/A; kr3 05:25 Body Mass Index 31.75 (83.91 kg, 162.56 cm) kl MDM: 05:19 Patient medically screened. [facility] 06:10 Differential diagnosis: Basilar Pneumonia Fatigue Peptic Ulcer. Data reviewed: vital issa signs, nurses notes, lab test result(s), radiologic studies, plain films. Data interpreted: quality assurance monitor final: rate is 78 beats/min, rhythm is regular, Pulse oximetry: on room air is 99 %. Test interpretation: by ED physician or midlevel provider: plain radiologic studies. 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 10/15 06:07 Order name: CBC with Diff [facility] 10/15 06:07 Order name: Comprehensive Metabolic Panel; Complete Time: 07:10 [facility] 10/15 06:07 Order name: Chest Single View XRAY [facility] 10/15 06:32 Order name: Urine Dipstick-Ancillary; Complete Time: 07:10 [facility] 10/15 06:45 Order name: CBC Smear Scan [facility] 10/15 06:07 Order name: Urine Dipstick-Ancillary (obtain specimen); Complete Time: 06:31 [facility] 10/15 06:07 Order name: Misc. Order: bebtelovimab; Complete Time: 06:31 [facility] Administered Medications: 06:31 Drug: NS 0.9% 1000 ml Route: IV; Rate: 1 bolus; Site: right antecubital; as6 07:48 Follow up: Response: No adverse reaction; IV Status: Completed infusion; IV Intake: kr3 1000ml 06:31 Drug: Zithromax (azithromycin) 500 mg Route: PO; as6 07:48 Follow up: Response: No adverse reaction kr3 06:31 Drug: Pepcid (famotidine) 40 mg Route: PO; as6 07:48 Follow up: Response: No adverse reaction kr3 06:31 Drug: Ketorolac 15 mg Route: IVP; Site: right antecubital; as6 07:47 Follow up: Response: No adverse reaction kr3 06:32 Drug: Aspirin Chewable Tablet 162 mg Route: PO; as6 07:47 Follow up: Response: No adverse reaction kr3 Disposition Summary: 10/15/21 07:18 Discharge Ordered Location: Home issa Problem: new issa Symptoms: have improved issa Condition: Stable issa Diagnosis - Coronavirus infection, unspecified issa - SARS-associated coronavirus as the cause of diseases classified elsewhere issa - Headache issa Followup: issa - With: Private Physician - When: 2 - 3 days - Reason: Recheck today's complaints, Continuance of care, Re-evaluation by your physician Followup: issa - With: - When: 2 - 3 days - Reason: Recheck today's complaints, Continuance of care, Re-evaluation by your physician Discharge Instructions: - Discharge Summary Sheet [facility] - Upper Respiratory Infection, Adult, [id number] [facility] - Viral Respiratory Infection, [id number]-Nogq [facility] - Aspirin and Your Heart [facility] - COVID-19 [facility] - COVID-19 Frequently Asked Questions [facility] - Things to Know about the COVID-19 Pandemic - [facility] - 10 Things You Can Do to Manage Your COVID-19 Symptoms at Home - [facility] - COVID-19: Quarantine vs. Isolation - [facility] - Prevent the Spread of COVID-19 if You Are Sick - [facility] Forms: - Medication Reconciliation Form [facility] - Thank You Letter [facility] - Antibiotic Education [facility] - Prescription Opioid Use [facility] Prescriptions: - dexamethasone 2 mg Oral tablet - take 1 tablet by ORAL route 2 times per day; 10 tablet; Refills: 0, Product issa Selection Permitted - Tessalon Perles 100 mg Oral Capsule - take 1 capsule by ORAL route every 8 hours As needed; 45 capsule; Refills: 0, [facility] Product Selection Permitted - Pepcid 20 mg Oral Tablet - take 1 tablet by ORAL route every 12 hours for 30 days; 60 tablet; Refills: 0, [facility] Product Selection Permitted - Zofran 4 mg Oral Tablet - take 1 tablet by ORAL route every 12 hours As needed; 20 tablet; Refills: 0, issa Product Selection Permitted - Zithromax Z-Vance 250 mg Oral Tablet - take 1 tablet by ORAL route as directed for 5 days Day 1 - take two (2) tablets issa one time. Day 2, 3, 4 , 5 take one (1) tablet once daily.; 6 tablet; Refills: 0, Product Selection Permitted Signatures: Dispatcher [employer] Meliza Sorto RN RN kl Anderson, Corey, MD MD cha Slawson, Ashby, RN RN as6 Allison Barry RN kr3
--- NOTE | 2021-10-15 07:19 | ER ---
Nurse's Notes [facility] Name: Rui Cartwright Age: 46 yrs Sex: Female : 1975 Arrival Date: 10/15/2021 Time: 05:11 Bed 13 Private MD: Diagnosis: Coronavirus infection, unspecified;SARS-associated coronavirus as the cause of diseases classified elsewhere;Headache Presentation: 10/15 05:25 Chief complaint: Patient states: back pain and headache since Friday when diagnosed kl with COVID. Coronavirus screen: Client reports previous positive COVID test result. Date of collection: October 13, 2021. Ebola Screen: Patient negative for fever greater than or equal to 101.5 degrees Fahrenheit, and additional compatible Ebola Virus Disease symptoms. Initial Sepsis Screen: Does the patient meet any 2 criteria? No. Patient's initial sepsis screen is negative. Does the patient have a suspected source of infection? No. Patient's initial sepsis screen is negative. Risk Assessment: Do you want to hurt yourself or someone else? Patient reports no desire to harm self or others. Onset of symptoms was October 13, 2021. 05:25 Method Of Arrival: Ambulatory 05:25 Acuity: KATE 4 kl Triage Assessment: 05:30 General: Appears in no apparent distress. Behavior is calm, cooperative. Pain: kl Complains of pain in forehead. Musculoskeletal: Reports pain in left mid back. 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 - Social history:: Smoking status: Patient denies any tobacco usage or history of. Screenin:35 Abuse screen: Denies threats or abuse. Denies injuries from another. Nutritional as6 screening: No deficits noted. Tuberculosis screening: No symptoms or risk factors identified. Fall Risk None identified. Assessment: 05:35 General: Appears in no apparent distress. Behavior is calm, cooperative. Pain: as6 Complains of pain in back and left mid back and face and forehead. Neuro: Level of Consciousness is awake, alert, Reports headache. Respiratory: Respiratory effort is even, unlabored. 07:15 General: Appears in no apparent distress. uncomfortable, Behavior is calm, cooperative. kr3 07:15 Reassessment: No changes from previously documented assessment. kr3 Vital Signs: 05:25 BP 125 / 75; Pulse 78; Resp 16; Temp 97.5; Pulse Ox 99% on R/A; Weight 83.91 kg (R); kl Height 5 ft. 4 in. (162.56 cm); Pain 10/10; 06:30 BP 118 / 70; Pulse 87; Resp 16 S; Pulse Ox 98% on R/A; as6 07:45 BP 119 / 77; Pulse 71; Resp 18; Pulse Ox 97% on R/A; kr3 05:25 Body Mass Index 31.75 (83.91 kg, 162.56 cm) ED Course: 05:11 Patient arrived in ED. bp1 05:19 Hugo Hayes MD is Attending Physician. issa 05:28 Triage completed. kl 05:30 Jarad Hilliard, SHAY is Primary Nurse. as6 05:35 Arm band placed on. as6 05:35 Bed in low position. Call light in reach. Side rails up X 1. as6 06:25 Inserted saline lock: 20 gauge in right antecubital area, using aseptic technique. as6 Blood collected. 06:35 Chest Single View XRAY In Process Unspecified. EDMS 07:18 Kyle Luu MD is Referral Physician. issa 07:45 No provider procedures requiring assistance completed. IV discontinued, intact, kr3 bleeding controlled, No redness/swelling at site. Pressure dressing applied. Administered Medications: 06:31 Drug: NS 0.9% 1000 ml Route: IV; Rate: 1 bolus; Site: right antecubital; as6 07:48 Follow up: Response: No adverse reaction; IV Status: Completed infusion; IV Intake: kr3 1000ml 06:31 Drug: Zithromax (azithromycin) 500 mg Route: PO; as6 07:48 Follow up: Response: No adverse reaction kr3 06:31 Drug: Pepcid (famotidine) 40 mg Route: PO; as6 07:48 Follow up: Response: No adverse reaction kr3 06:31 Drug: Ketorolac 15 mg Route: IVP; Site: right antecubital; as6 07:47 Follow up: Response: No adverse reaction kr3 06:32 Drug: Aspirin Chewable Tablet 162 mg Route: PO; as6 07:47 Follow up: Response: No adverse reaction kr3 Medication: 07:46 VIS not applicable for this client. kr3 Intake: 07:48 IV: 1000ml; Total: 1000ml. kr3 Outcome: 07:18 Discharge ordered by MD. parsons 07:46 Discharged to home kr3 07:46 Condition: stable 07:46 Discharge instructions given to patient, Instructed on discharge instructions, follow up and referral plans. medication usage, Demonstrated understanding of instructions, follow-up care, medications, Prescriptions given X 5 07:49 Patient left the ED. kr3 Signatures: Dispatcher [employer] EDMS Meliza Jalloh RN RN Hugo Meade MD MD cha Paniauga, Brittany bp1 Slawson, Ashby, RN RN as6 Allison Barry RN RN kr3 Corrections: (The following items were deleted from the chart) 07:45 07:43 General: Appears in no apparent distress. uncomfortable, Behavior is calm, kr3 cooperative, kr3
[2021-10-15 08:01] LABS: Platelet Estimate ADEQ; White Blood Cell Scan OK (OK)
[2021-10-15 08:02] LABS: Anisocytosis 1+; Blood Morphology Comment NOTED (NOT SEEN); Hypochromasia 2+
[2021-10-15 08:32] VITALS: TEMP 97.5
[2021-10-15 08:37] VITALS: BP 119/77; O2SAT 97
--- NOTE | 2021-10-15 14:00 | RAD REPORT ---
EXAM DESCRIPTION: RAD - Chest Single View - 10/15/2021 6:34 am CLINICAL HISTORY: cough COMPARISON: August 2021 FINDINGS: The lungs appear clear of acute infiltrate. The heart is normal size
== END 2021-10-15 07:49 | disposition home or self-care (01) ==
LOC: ER 05:08
DX: U07.1 COVID-19 (principal); E11.9 Type 2 diabetes mellitus without complications; I10 Essential (primary) hypertension; Z91.013 Allergy to seafood
CPT/HCPCS: 96361; 85025; 36415; 81003; 80053; 71045; 96374; 99284; J7030

== ENCOUNTER 2022-10-26 10:03 | Emergency (ER) | payer BC ==
--- OUTSIDE RECORDS SUMMARY | 2022-10-26 10:12 | XMS REPORT | Continuity of Care Document ---
:1975 Author Organization [facility] t Address [address] [facility] [address] [place] [id number] Care Team Providers Name Role Phone OZUNA, RAJIV Igor Primary Care Physician Unavailable KAMILLE OLSONSOL Attending Clinician Unavailable ALESHIA OLSON Attending Clinician Unavailable SMITA HERNÁNDEZ Attending Clinician Unavailable Salma Sloan MD Attending Clinician SALMA SLOAN Attending Clinician Unavailable Doctor Unassigned, [place] Attending Clinician Unavailable Stephany DAY, Casandra Knutson Attending Clinician Unavailable Lyn Chong MD Attending Clinician KYLEE ZELAYA Attending Clinician Unavailable 2, [facility] Attending Clinician Unavailable Kylee Leblanc Attending Clinician Kristie Ku MD Attending Clinician Smita Salgado Attending Clinician Laila Krishnamurthy MD Attending Clinician Lab, Ang - Db Attending Clinician Unavailable LAILA KRISHNAMURTHY Attending Clinician Unavailable Konrad Valentin DO Attending Clinician Moni Boyce RN Attending Clinician Unavailable SHIRA JOHNSON Attending Clinician Unavailable Shira Marino Attending Clinician [phone] SALMA SLOAN Admitting Clinician Unavailable ALESHIA OLSON Admitting Clinician Unavailable Payers Payer Name Policy Type Policy Number Effective Date Expiration Date S our[place] [employer] [place] - [id number] 2016 00:00:00 OUT OF STATE Problems Condition Condition Condition Status Onset Resolution Last Treating Co mments Source Name Details Category Date Date Treatment Clinician Date Abnormal Abnormal Disease Active Unive rs uterine uterine 6-02 ity of bleeding bleeding 00:00: [place] (AUB) (AUB) 00 Medical Branch Controlled Controlled Disease Active 2020-02 U michael type 2 type 2 2-07 ity of diabetes diabetes 00:00: [place] mellitus mellitus 00 Medica l without without Branch complicati complicati on, on, without without long-term long-term current current use of use of insulin insulin Uncontroll Uncontroll Disease Active U michael ed type 2 ed type 2 4-27 ity of diabetes diabetes 00:00: [place] mellitus mellitus 00 Medica l with with Branch hyperglyce hyperglyce santosh santosh Acquired Acquired Disease Active Unive rs hypothyroi hypothyroi 4-27 it y of dism dism 00:00: [place] [facility] Mixed Mixed Disease Active Univers hyperlipid hyperlipid 4-27 it y of emia emia 00:00: [place] 00 Medical Branch Essential Essential Disease Active Uni vers hypertensi hypertensi 4-27 it y of on on 00:00: [place] [facility] Thyroid Thyroid Disease Active Univers cyst cyst 4-27 ity of 00:00: [place] 00 Medical Branch Iron Iron Disease Active Univers deficiency deficiency 4-27 it y of anemia due anemia due 00:[place] to chronic to chronic 00 Me dical blood loss blood loss Br anch Other Other Disease Active 2012-02 Univers malaise malaise 0-11 ity of and and 00:00: [place] fatigue fatigue 00 Medical Branch Hyperthyro Hyperthyro Disease Active 2012-02 U michael idism idism 0-11 ity of 00:00: [place] [facility] Contact Contact Disease Active 2011-02 Univers dermatitis dermatitis 2-03 it y of and other and other [place] ec[place] ecz[place] 00 Medical due to due to Branch unspecifie unspecifie d cause d cause Allergies, Adverse Reactions, Alerts Allergy Allergy Status Severity Reaction(s) Onset Inactive Treating Comm ents Source Name Type Date Date Clinician NO KNOWN Drug Active Univers ALLERGIE Class ity of [facility] Social History Social Habit Start Date Stop Date Quantity Comments Source Gender identity [facility] intake 2022-09-24 2022-09-24 Lifetime University of 00:00:00 00:00:00 non-drinker [facility] (finding) [place] History of Social 2022-07-12 2022-07-12 Univers ity of function 00:00:00 00:00:00 [facility] Exposure to 2022-06-30 2022-07-10 Not sure [facility] SARS-CoV-2 (event) 00:00:00 06:31:00 [facility] Tobacco use and 2022-06-04 2022-06-04 Smokeless Universit y of exposure 00:00:00 00:00:[address] [facility] Sex Assigned At [birth year] Universit y of 00:00:00 00:00:00 [facility] Smoking Status Start Date Stop Date Source Never smoked tobacco [facility] Medications Ordered Filled Start Stop Current Ordering Indication Dosage Frequency Signature Comments Components Source Medication Medication Date Date Medication? Clinician (SIG) Name Name tirzepatide Yes [id number] 5mg inject 5 Univers (MOUNJARO) 8-21 mg under ity o f 5 mg/0.5 mL 00:00: [place] PnIj 00 weekly. Medical Start Branch first with the 2.5mg injection for 8 weeks and then move to the 5mg injection. tirzepatide Yes [id number] 5mg inject 5 Univers (MOUNJARO) 8-21 mg under ity o f 5 mg/0.5 mL 00:00: [place] PnIj 00 weekly. Medical Start Branch first with the 2.5mg injection for 8 weeks and then move to the 5mg injection. tirzepatide Yes [id number] 5mg inject 5 Univers (MOUNJARO) 8-21 mg under ity o f 5 mg/0.5 mL 00:00: [place] skin [place] PnIj 00 weekly. Medical Start Branch first with the 2.5mg injection for 8 weeks and then move to the 5mg injection. tirzepatide 3-0 Yes [id number] 5mg inject 5 Univers (MOUNJARO) 8-21 mg under ity o f 5 mg/0.5 mL 00:00: the skin [place] PnIj 00 weekly. Medical Start Branch first with the 2.5mg injection for 8 weeks and then move to the 5mg injection. tirzepatide 3-0 Yes [id number] 5mg inject 5 Univers (MOUNJARO) 8-21 mg under ity o f 5 mg/0.5 mL 00:00: the skin [place] PnIj 00 weekly. Medical [place] Branch first with the 2.5mg injection for 8 weeks and then move to the 5mg injection. tirzepatide 3-0 Yes [id number] 5mg inject 5 Univers (MOUNJARO) 8-21 mg under ity o f 5 mg/0.5 mL 00:00: [place] skin [place] PnIj 00 weekly. Medical [place] Branch first with the 2.5mg injection for 8 weeks and then move to the 5mg injection. peg-electro 2022-0 2022- Yes 4000mL Take 4,000 Univers lyte soln 8-07 08-08 mL by ity of (JALIL) 00:00: 04:59 mouth once [place] 236-22.74-6 00 :00 now for 1 Med ical .74 -5.86 dose. Branch gram solution traMADoL 50 2022-0 Yes Univer s mg tablet 7-28 ity of 00:00: [place] 00 [facility] Branch traMADoL 50 2022-0 Yes Univer s mg tablet 7-28 ity of 00:00: [place] 00 [facility] Branch traMADoL 50 2022-0 Yes Univer s mg tablet 7-28 ity of 00:00: [place] 00 Medical Branch traMADoL 50 2022-0 Yes Univer s mg tablet 7-28 ity of 00:00: [place] 00 Medical Branch traMADoL 50 2022-0 Yes Univer s mg tablet 7-28 ity of 00:00: [place] 00 Medical Branch traMADoL 50 2022-0 Yes Univer s mg tablet 7-28 ity of 00:00: [place] 00 [facility] traMADoL 50 2022-0 Yes Univer s mg tablet 7-28 ity of 00:00: Medical Branch traMADoL 50 2022-0 Yes Univer s mg tablet 7-28 ity of 00:00: [place] Medical Branch traMADoL 50 2022-0 Yes Univer s mg tablet -28 ity of 00:00: [place] Medical Branch traMADoL 50 2022-0 Yes Univer s mg tablet -28 ity of 00:00: [place] [facility] Branch traMADoL 50 3-0 Yes Univer s mg tablet 7- ity of 00:00: [place] [facility] Branch traMADoL 50 2022-0 Yes Univer s mg tablet -28 ity of 00:: [place] [facility] Branch traMADoL 50 2022-0 Yes Univer s mg tablet 7-28 ity of 00:00: [place] Medical Branch metformin 2022-0 Yes [id number] 1000mg Take 2 Univers ER 500 mg 6-05 tablets by ity of 24 hr 00:00: mouth 2 [place] tablet 00 (two) Medical times Branch daily before breakfast and dinner. atorvastati 2022-0 Yes [id number] 10mg Take 1 Univers n 10 mg 6-05 tablet by ity of tablet 00:00: mouth at [place] [address] bedtime. Medical Branch metformin 2022-0 Yes [id number] 1000mg Take 2 Univers ER 500 mg 6-05 tablets by ity of 24 hr 00:00: mouth 2 [place] tablet 00 (two) Medical times Branch daily before breakfast and dinner. atorvastati 2022-0 Yes [id number] 10mg Take 1 Univers n 10 mg 6-05 tablet by ity of tablet 00:00: mouth at [place] 00 bedtime. Medical Branch metformin 3-0 Yes [id number] 1000mg Take 2 Univers ER 500 mg 6-05 tablets by ity of 24 hr 00:00: mouth 2 [place] tablet 00 (two) Medical times Branch daily before breakfast and dinner. atorvastati 2022-0 Yes [id number] 10mg Take 1 Univers n 10 mg 6-05 tablet by ity of tablet 00:00: mouth at [place] 00 bedtime. Medical Branch metformin 2022-0 Yes [id number] 1000mg Take 2 Univers ER 500 mg 6-05 tablets by ity of 24 hr 00:00: mouth 2 [place] tablet 00 (two) Medical times Branch daily before breakfast and dinner. atorvastati 2022-0 Yes [id number] 10mg Take 1 Univers n 10 mg 6-05 tablet by ity of tablet 00:00: mouth at [place] 00 bedtime. Medical Branch metformin 2022-0 Yes [id number] 1000mg Take 2 Univers ER 500 mg 6-05 tablets by ity of 24 hr 00:00: mouth 2 [place] tablet 00 (two) Medical times Branch daily before breakfast and dinner. atorvastati 2022-0 Yes [id number] 10mg Take 1 Univers n 10 mg 6-05 tablet by ity of tablet 00:00: mouth at [place] 00 bedtime. Medical Branch metformin 2022-0 Yes [id number] 1000mg Take 2 Univers ER 500 mg 6-05 tablets by ity of 24 hr 00:00: mouth 2 [place] tablet 00 (two) Medical times Branch daily before breakfast and dinner. atorvastati 2022-0 Yes [id number] 10mg Take 1 Univers n 10 mg 6-05 tablet by ity of tablet 00:00: mouth at [place] 00 bedtime. Medical Branch metformin 2022-0 Yes [id number] 1000mg Take 2 Univers ER 500 mg 6-05 tablets by ity of 24 hr 00:00: mouth 2 [place] tablet 00 (two) Medical times Branch daily before breakfast and dinner. atorvastati 2022-0 Yes [id number] 10mg Take 1 Univers n 10 mg 6-05 tablet by ity of tablet 00:00: mouth at [place] 00 bedtime. Medical Branch metformin 2022-0 Yes [id number] 1000mg Take 2 Univers ER 500 mg 6-05 tablets by ity of 24 hr 00:00: mouth 2 [place] tablet 00 (two) Medical times Branch daily before breakfast and dinner. atorvastati 2022-0 Yes [id number] 10mg Take 1 Univers n 10 mg 6-05 tablet by ity of tablet 00:00: mouth at [place] 00 bedtime. Medical Branch metformin 2022-0 Yes [id number] 1000mg Take 2 Univers ER 500 mg 6-05 tablets by ity of 24 hr 00:00: mouth 2 [place] tablet 00 (two) Medical times Branch daily before breakfast and dinner. atorvastati 2022-0 Yes [id number] 10mg Take 1 Univers n 10 mg 6-05 tablet by ity of tablet 00:00: mouth at [place] 00 bedtime. Medical Branch metformin 2022-0 Yes [id number] 1000mg Take 2 Univers ER 500 mg 6-05 tablets by ity of 24 hr 00:00: mouth 2 [place] tablet 00 (two) Medical times Branch daily before breakfast and dinner. atorvastati 2022-0 Yes [id number] 10mg Take 1 Univers n 10 mg 6-05 tablet by ity of tablet 00:00: mouth at [place] 00 bedtime. Medical Branch metformin 2022-0 Yes [id number] 1000mg Take 2 Univers ER 500 mg 6-05 tablets by ity of 24 hr 00:00: mouth 2 [place] tablet 00 (two) Medical times Branch daily before breakfast and dinner. atorvastati 2022-0 Yes [id number] 10mg Take 1 Univers n 10 mg 6-05 tablet by ity of tablet 00:00: mouth at [place] 00 bedtime. Medical Branch metformin 2022-0 Yes [id number] 1000mg Take 2 Univers ER 500 mg 6-05 tablets by ity of 24 hr 00:00: mouth 2 [place] tablet 00 (two) Medical times Branch daily before breakfast and dinner. atorvastati 2022-0 Yes [id number] 10mg Take 1 Univers n 10 mg 6-05 tablet by ity of tablet 00:00: mouth at [place] 00 bedtime. Medical Branch metformin 2022-0 Yes [id number] 1000mg Take 2 Univers ER 500 mg 6-05 tablets by ity of 24 hr 00:00: mouth 2 [place] tablet 00 (two) Medical times Branch daily before breakfast and dinner. atorvastati 2022-0 Yes [id number] 10mg Take 1 Univers n 10 mg 6-05 tablet by ity of tablet 00:00: mouth at [place] 00 bedtime. Medical Branch metformin 2022-0 Yes [id number] 1000mg Take 2 Univers ER 500 mg 6-05 tablets by ity of 24 hr 00:00: mouth 2 [place] tablet 00 (two) Medical times Branch daily before breakfast and dinner. atorvastati 2022-0 Yes [id number] 10mg Take 1 Univers n 10 mg 6-05 tablet by ity of tablet 00:00: mouth at [place] 00 bedtime. Medical Branch metformin 2022-0 Yes [id number] 1000mg Take 2 Univers ER 500 mg 6-05 tablets by ity of 24 hr 00:00: mouth 2 [place] tablet 00 (two) Medical times Branch daily before breakfast and dinner. atorvastati 2022-0 Yes [id number] 10mg Take 1 Univers n 10 mg 6-05 tablet by ity of tablet 00:00: mouth at [place] 00 bedtime. Medical Branch metformin 2022-0 Yes [id number] 1000mg Take 2 Univers ER 500 mg 6-05 tablets by ity of 24 hr 00:00: mouth 2 [place] tablet 00 (two) Medical times Branch daily before breakfast and dinner. atorvastati 2022-0 Yes [id number] 10mg Take 1 Univers n 10 mg 6-05 tablet by ity of tablet 00:00: mouth at [place] 00 bedtime. Medical Branch metformin 2022-0 Yes [id number] 1000mg Take 2 Univers ER 500 mg 6-05 tablets by ity of 24 hr 00:00: mouth 2 [place] tablet 00 (two) Medical times Branch daily before breakfast and dinner. atorvastati 2022-0 Yes [id number] 10mg Take 1 Univers n 10 mg 6-05 tablet by ity of tablet 00:00: mouth at [place] 00 bedtime. Medical Branch metformin 2022-0 Yes [id number] 1000mg Take 2 Univers ER 500 mg 6-05 tablets by ity of 24 hr 00:00: mouth 2 [place] tablet 00 (two) Medical times Branch daily before breakfast and dinner. atorvastati 2022-0 Yes [id number] 10mg Take 1 Univers n 10 mg 6-05 tablet by ity of tablet 00:00: mouth at [place] 00 bedtime. Medical Branch metformin 2022-0 Yes [id number] 1000mg Take 2 Univers ER 500 mg 6-05 tablets by ity of 24 hr 00:00: mouth 2 [place] tablet 00 (two) Medical times Branch daily before breakfast and dinner. atorvastati 2022-0 Yes [id number] 10mg Take 1 Univers n 10 mg 6-05 tablet by ity of tablet 00:00: mouth at [place] 00 bedtime. Medical Branch metformin 2022-0 Yes [id number] 1000mg Take 2 Univers ER 500 mg 6-05 tablets by ity of 24 hr 00:00: mouth 2 [place] tablet 00 (two) Medical times Branch daily before breakfast and dinner. atorvastati 2022-0 Yes [id number] 10mg Take 1 Univers n 10 mg 6-05 tablet by ity of tablet 00:00: mouth at [place] 00 bedtime. Medical Branch metformin 2022-0 Yes [id number] 1000mg Take 2 Univers ER 500 mg 6-05 tablets by ity of 24 hr 00:00: mouth 2 [place] tablet 00 (two) Medical times Branch daily before breakfast and dinner. atorvastati 2022-0 Yes [id number] 10mg Take 1 Univers n 10 mg 6-05 tablet by ity of tablet 00:00: mouth at [place] 00 bedtime. Medical Branch empaglifloz 2022-0 Yes [id number] 10mg Take 1 Univers in 4-25 tablet by ity of (JARDIANCE) 00:00: mouth in [place] 10 mg 00 the Medical morning. Branch metformin 2022-0 Yes [id number] 1000mg Take 2 Univers ER 500 mg 4-25 tablets by ity of 24 hr 00:00: mouth in [place] tablet 00 the Medical morning Branch and 2 tablets in the evening. Take with meals. levothyroxi 2022-0 Yes [id number] 100ug Take 1 Univers ne 100 mcg 4-25 tablet by ity of tablet 00:00: mouth [place] 00 every Medical morning. Branch tirzepatide 2022-0 Yes [id number] 2.5mg inject 2.5 Univers (MOUNJARO) 4-25 mg under ity o f 2.5 mg/0.5 00:00: [place] PnIj 00 weekly. Medical Start Branch first with the 2.5mg injection for 8 weeks and then move to the 5mg injection. tirzepatide 2022-0 Yes [id number] 5mg inject 5 Univers (MOUNJARO) 4-25 mg under ity o f 5 mg/0.5 mL 00:00: the skin [place] PnIj 00 weekly. Medical Start Branch first with the 2.5mg injection for 8 weeks and then move to the 5mg injection. empaglifloz 2022-0 Yes [id number] 10mg Take 1 Univers in 4-25 tablet by ity of (JARDIANCE) 00:00: mouth in [place] 10 mg 00 the Medical morning. Branch metformin 2022-0 Yes [id number] 1000mg Take 2 Univers ER 500 mg 4-25 tablets by ity of 24 hr 00:00: mouth in [place] tablet 00 the Medical morning Branch and 2 tablets in the evening. Take with meals. levothyroxi 2022-0 Yes [id number] 100ug Take 1 Univers ne 100 mcg 4-25 tablet by ity of tablet 00:00: mouth [place] 00 every Medical morning. Branch tirzepatide 2022-0 Yes [id number] 2.5mg inject 2.5 Univers (MOUNJARO) 4-25 mg under ity o f 2.5 mg/0.5 00:00: the [place] PnIj 00 weekly. Medical Start Branch first with the 2.5mg injection for 8 weeks and then move to the 5mg injection. tirzepatide 2022-0 Yes [id number] 5mg inject 5 Univers (MOUNJARO) 4-25 mg under ity o f 5 mg/0.5 mL 00:00: the skin [place] PnIj 00 weekly. Medical Start Branch first with the 2.5mg injection for 8 weeks and then move to the 5mg injection. empaglifloz 2022-0 Yes [id number] 10mg Take 1 Univers in 4-25 tablet by ity of (JARDIANCE) 00:00: mouth in [place] 10 mg 00 the Medical morning. Branch metformin 2022-0 Yes [id number] 1000mg Take 2 Univers ER 500 mg 4-25 tablets by ity of 24 hr 00:00: mouth in [place] tablet 00 the Medical morning Branch and 2 tablets in the evening. Take with meals. levothyroxi 2022-0 Yes [id number] 100ug Take 1 Univers ne 100 mcg 4-25 tablet by ity of tablet 00:00: mouth [place] 00 every Medical morning. Branch tirzepatide 2022-0 Yes [id number] 2.5mg inject 2.5 Univers (MOUNJARO) 4-25 mg under ity o f 2.5 mg/0.5 00:00: the [place] PnIj 00 weekly. Medical Start Branch first with the 2.5mg injection for 8 weeks and then move to the 5mg injection. tirzepatide 2022-0 Yes [id number] 5mg inject 5 Univers (MOUNJARO) 4-25 mg under ity o f 5 mg/0.5 mL 00:00: the skin [place] PnIj 00 weekly. Medical Start Branch first with the 2.5mg injection for 8 weeks and then move to the 5mg injection. empaglifloz 2023-0 Yes [id number] 10mg Take 1 Univers in 4-25 tablet by ity of (JARDIANCE) 00:00: mouth in [place] 10 mg 00 the Medical morning. Branch metformin 3-0 Yes [id number] 1000mg Take 2 Univers ER 500 mg 4-25 tablets by ity of 24 hr 00:00: mouth in [place] tablet 00 the Medical morning Branch and 2 tablets in the evening. Take with meals. levothyroxi 2023-0 Yes [id number] 100ug Take 1 Univers ne 100 mcg 4-25 tablet by ity of tablet 00:00: mouth [place] 00 every Medical morning. Branch tirzepatide 3-0 Yes [id number] 2.5mg inject 2.5 Univers (MOUNJARO) 4-25 mg under ity o f 2.5 mg/0.5 00:00: the [place] PnIj 00 weekly. [facility] Branch first with the 2.5mg injection for 8 weeks and then move to the 5mg injection. tirzepatide 3-0 Yes [id number] 5mg inject 5 Univers (MOUNJARO) 4-25 mg under ity o f 5 mg/0.5 mL 00:00: the skin [place] PnIj 00 weekly. [facility] Branch first with the 2.5mg injection for 8 weeks and then move to the 5mg injection. empaglifloz 2023-0 Yes [id number] 10mg Take 1 Univers in 4-25 tablet by ity of (JARDIANCE) 00:00: mouth in [place] 10 mg 00 the Medical morning. Branch metformin 3-0 Yes [id number] 1000mg Take 2 Univers ER 500 mg 4-25 tablets by ity of 24 hr 00:00: mouth in [place] tablet 00 the Medical morning Branch and 2 tablets in the evening. Take with meals. levothyroxi 2023-0 Yes [id number] 100ug Take 1 Univers ne 100 mcg 4-25 tablet by ity of tablet 00:00: mouth [place] 00 every Medical morning. Branch tirzepatide 3-0 Yes [id number] 2.5mg inject 2.5 Univers (MOUNJARO) 4-25 mg under ity o f 2.5 mg/0.5 00:00: [place] PnIj 00 weekly. Medical Start Branch first with the 2.5mg injection for 8 weeks and then move to the 5mg injection. tirzepatide 3-0 Yes [id number] 5mg inject 5 Univers (MOUNJARO) 4-25 mg under ity o f 5 mg/0.5 mL 00:00: the skin [place] PnIj 00 weekly. Medical Start Branch first with the 2.5mg injection for 8 weeks and then move to the 5mg injection. empaglifloz 2022-0 Yes [id number] 10mg Take 1 Univers in 4-25 tablet by ity of (JARDIANCE) 00:00: mouth in [place] 10 mg 00 the Medical morning. Branch levothyroxi 2022-0 Yes [id number] 100ug Take 1 Univers ne 100 mcg 4-25 tablet by ity of tablet 00:00: mouth [place] 00 every Medical morning. Branch tirzepatide 2022-0 Yes [id number] 2.5mg inject 2.5 Univers (MOUNJARO) 4-25 mg under ity o f 2.5 mg/0.5 00:00: [place] PnIj 00 weekly. Medical Start Branch first with the 2.5mg injection for 8 weeks and then move to the 5mg injection. tirzepatide 2022-0 Yes [id number] 5mg inject 5 Univers (MOUNJARO) 4-25 mg under ity o f 5 mg/0.5 mL 00:00: the skin [place] PnIj 00 weekly. Medical Start Branch first with the 2.5mg injection for 8 weeks and then move to the 5mg injection. empaglifloz 2022-0 Yes [id number] 10mg Take 1 Univers in 4-25 tablet by ity of (JARDIANCE) 00:00: mouth in [place] 10 mg 00 the Medical morning. Branch levothyroxi 2022-0 Yes [id number] 100ug Take 1 Univers ne 100 mcg 4-25 tablet by ity of tablet 00:00: mouth [place] 00 every Medical morning. Branch tirzepatide 2022-0 Yes [id number] 2.5mg inject 2.5 Univers (MOUNJARO) 4-25 mg under ity o f 2.5 mg/0.5 00:00: [place] PnIj 00 weekly. Medical Start Branch first with the 2.5mg injection for 8 weeks and then move to the 5mg injection. tirzepatide 3-0 Yes [id number] 5mg inject 5 Univers (MOUNJARO) 4-25 mg under ity o f 5 mg/0.5 mL 00:00: the skin [place] PnIj 00 weekly. Medical Start Branch first with the 2.5mg injection for 8 weeks and then move to the 5mg injection. empaglifloz 2022-0 Yes [id number] 10mg Take 1 Univers in 4-25 tablet by ity of (JARDIANCE) 00:00: mouth in [place] 10 mg 00 the Medical morning. Branch levothyroxi 2022-0 Yes [id number] 100ug Take 1 Univers ne 100 mcg 4-25 tablet by ity of tablet 00:00: mouth [place] 00 every Medical morning. Branch tirzepatide 2022-0 Yes [id number] 2.5mg inject 2.5 Univers (MOUNJARO) 4-25 mg under ity o f 2.5 mg/0.5 00:00: [place] PnIj 00 weekly. Medical Start Branch first with the 2.5mg injection for 8 weeks and then move to the 5mg injection. tirzepatide 2022-0 Yes [id number] 5mg inject 5 Univers (MOUNJARO) 4-25 mg under ity o f 5 mg/0.5 mL 00:00: the skin [place] PnIj 00 weekly. Medical Start Branch first with the 2.5mg injection for 8 weeks and then move to the 5mg injection. empaglifloz 2022-0 Yes [id number] 10mg Take 1 Univers in 4-25 tablet by ity of (JARDIANCE) 00:00: mouth in [place] 10 mg 00 the Medical morning. Branch levothyroxi 2022-0 Yes [id number] 100ug Take 1 Univers ne 100 mcg 4-25 tablet by ity of tablet 00:00: mouth [place] 00 every Medical morning. Branch tirzepatide 2022-0 Yes [id number] 2.5mg inject 2.5 Univers (MOUNJARO) 4-25 mg under ity o f 2.5 mg/0.5 00:00: [place] PnIj 00 weekly. Medical Start Branch first with the 2.5mg injection for 8 weeks and then move to the 5mg injection. tirzepatide 3-0 Yes [id number] 5mg inject 5 Univers (MOUNJARO) 4-25 mg under ity o f 5 mg/0.5 mL 00:00: the skin [place] PnIj 00 weekly. Medical Start Branch first with the 2.5mg injection for 8 weeks and then move to the 5mg injection. empaglifloz 2022-0 Yes [id number] 10mg Take 1 Univers in 4-25 tablet by ity of (JARDIANCE) 00:00: mouth in [place] 10 mg 00 the Medical morning. Branch levothyroxi 2022-0 Yes [id number] 100ug Take 1 Univers ne 100 mcg 4-25 tablet by ity of tablet 00:00: mouth [place] 00 every Medical morning. Branch tirzepatide 2022-0 Yes [id number] 2.5mg inject 2.5 Univers (MOUNJARO) 4-25 mg under ity o f 2.5 mg/0.5 00:00: [place] PnIj 00 weekly. Medical Start Branch first with the 2.5mg injection for 8 weeks and then move to the 5mg injection. tirzepatide 2022-0 Yes [id number] 5mg inject 5 Univers (MOUNJARO) 4-25 mg under ity o f 5 mg/0.5 mL 00:00: the skin [place] PnIj 00 weekly. Medical Start Branch first with the 2.5mg injection for 8 weeks and then move to the 5mg injection. empaglifloz 2022-0 Yes [id number] 10mg Take 1 Univers in 4-25 tablet by ity of (JARDIANCE) 00:00: mouth in [place] 10 mg 00 the Medical morning. Branch levothyroxi 2022-0 Yes [id number] 100ug Take 1 Univers ne 100 mcg 4-25 tablet by ity of tablet 00:00: mouth [place] 00 every Medical morning. Branch tirzepatide 2022-0 Yes [id number] 2.5mg inject 2.5 Univers (MOUNJARO) 4-25 mg under ity o f 2.5 mg/0.5 00:00: [place] PnIj 00 weekly. Medical Start Branch first with the 2.5mg injection for 8 weeks and then move to the 5mg injection. tirzepatide 3-0 Yes [id number] 5mg inject 5 Univers (MOUNJARO) 4-25 mg under ity o f 5 mg/0.5 mL 00:00: the skin [place] PnIj 00 weekly. Medical Start Branch first with the 2.5mg injection for 8 weeks and then move to the 5mg injection. empaglifloz 2022-0 Yes [id number] 10mg Take 1 Univers in 4-25 tablet by ity of (JARDIANCE) 00:00: mouth in [place] 10 mg 00 the Medical morning. Branch levothyroxi 2022-0 Yes [id number] 100ug Take 1 Univers ne 100 mcg 4-25 tablet by ity of tablet 00:00: mouth [place] 00 every Medical morning. Branch tirzepatide 2022-0 Yes [id number] 2.5mg inject 2.5 [facility] (MOUNJARO) 4-25 mg under ity o f 2.5 mg/0.5 00:00: the [place] PnIj 00 weekly. [facility] first with the 2.5mg injection for 8 weeks and then move to the 5mg injection. tirzepatide 2022-0 Yes [id number] 5mg inject 5 [facility] (MOUNJARO) 4-25 mg under ity o f 5 mg/0.5 mL 00:00: the skin [place] PnIj 00 weekly. Medical Start Branch first with the 2.5mg injection for 8 weeks and then move to the 5mg injection. empaglifloz 2022-0 Yes [id number] 10mg Take 1 [facility] in 4-25 tablet by ity of ([place]) 00:00: mouth in [place] 10 mg 00 the Medical morning. Branch levothyroxi 2022-0 Yes [id number] 100ug Take 1 [facility] ne 100 mcg 4-25 tablet by ity of tablet 00:00: mouth [place] 00 every Medical morning. Branch tirzepatide 2022-0 Yes [id number] 2.5mg inject 2.5 [facility] (MOUNJARO) 4-25 mg under ity o f 2.5 mg/0.5 00:00: [place] PnIj 00 weekly. Medical Start Branch first with the 2.5mg injection for 8 weeks and then move to the 5mg injection. tirzepatide 3-0 Yes [id number] 5mg inject 5 [facility] (MOUNJARO) 4-25 mg under ity o f 5 mg/0.5 mL 00:00: the skin [place] PnIj 00 weekly. Medical Start Branch first with the 2.5mg injection for 8 weeks and then move to the 5mg injection. empaglifloz 2022-0 Yes [id number] 10mg Take 1 [facility] in 4-25 tablet by ity of ([place]) 00:00: mouth in [place] 10 mg 00 the Medical morning. Branch levothyroxi 2022-0 Yes [id number] 100ug Take 1 [facility] ne 100 mcg 4-25 tablet by ity of tablet 00:00: mouth [place] 00 every Medical morning. Branch tirzepatide 2022-0 Yes [id number] 2.5mg inject 2.5 [facility] (MOUNJARO) 4-25 mg under ity o f 2.5 mg/0.5 00:00: [place] PnIj 00 weekly. Medical Start Branch first with the 2.5mg injection for 8 weeks and then move to the 5mg injection. tirzepatide 2022-0 Yes [id number] 5mg inject 5 [facility] (MOUNJARO) 4-25 mg under ity o f 5 mg/0.5 mL 00:00: the skin [place] PnIj 00 weekly. Medical Start Branch first with the 2.5mg injection for 8 weeks and then move to the 5mg injection. empaglifloz 2022-0 Yes [id number] 10mg Take 1 [facility] in 4-25 tablet by ity of ([place]) 00:00: mouth in [place] 10 mg 00 the Medical morning. Branch levothyroxi 2022-0 Yes [id number] 100ug Take 1 [facility] ne 100 mcg 4-25 tablet by ity of tablet 00:00: mouth [place] 00 every Medical morning. Branch tirzepatide 2022-0 Yes [id number] 2.5mg inject 2.5 [facility] (MOUNJARO) 4-25 mg under ity o f 2.5 mg/0.5 00:00: [place]nI[place] 00 weekly. Medical Start Branch first with the 2.5mg injection for 8 weeks and then move to the 5mg injection. tirzepatide 3-0 Yes [id number] 5mg inject 5 [facility] (MOUNJARO) 4-25 mg under ity o f 5 mg/0.5 mL 00:00: the skin [place] PnIj 00 weekly. Medical Start Branch first with the 2.5mg injection for 8 weeks and then move to the 5mg injection. empaglifloz 2022-0 Yes [id number] 10mg Take 1 [facility] in 4-25 tablet by ity of ([place]) 00:00: mouth in [place] 10 mg 00 the Medical morning. Branch levothyroxi 2022-0 Yes [id number] 100ug Take 1 [facility] ne 100 mcg 4-25 tablet by ity of tablet 00:00: mouth [place] 00 every Medical morning. Branch tirzepatide 2022-0 Yes [id number] 2.5mg inject 2.5 [facility] (MOUNJARO) 4-25 mg under ity o f 2.5 mg/0.5 00:00: [place] 00 weekly. Medical Start Branch first with the 2.5mg injection for 8 weeks and then move to the 5mg injection. tirzepatide 2022-0 Yes [id number] 5mg inject 5 [facility] (MOUNJARO) 4-25 mg under ity o f 5 mg/0.5 mL 00:00: the skin [place] PnIj 00 weekly. Medical Start Branch first with the 2.5mg injection for 8 weeks and then move to the 5mg injection. empaglifloz 2022-0 Yes [id number] 10mg Take 1 [facility] in 4-25 tablet by [facility] of ([place]) 00:00: mouth in [place] 10 mg 00 the Medical morning. Branch levothyroxi 2022-0 Yes [id number] 100ug Take 1 [facility] ne 100 mcg 4-25 tablet by ity of tablet 00:00: mouth [place] 00 every Medical morning. Branch tirzepatide 2022-0 Yes [id number] 2.5mg inject 2.5 [facility] (MOUNJARO) 4-25 mg under ity o f 2.5 mg/0.5 00:00: [place] 00 weekly. Medical Start Branch first with the 2.5mg injection for 8 weeks and then move to the 5mg injection. tirzepatide 2023-0 Yes [id number] 5mg inject 5 [facility] (MOUNJARO) 4-25 mg under ity o f 5 mg/0.5 mL 00:00: the skin [place] PnIj 00 weekly. Medical Start Branch first with the 2.5mg injection for 8 weeks and then move to the 5mg injection. levothyroxi 3-0 Yes [id number] 100ug Take 1 [facility] ne 100 mcg 4-25 tablet by ity of tablet 00:00: mouth [place] 00 every Medical morning. Branch tirzepatide 2022-0 Yes [id number] 2.5mg inject 2.5 [facility] (MOUNJARO) 4-25 mg under ity o f 2.5 mg/0.5 00:00: [place] 00 weekly. Medical Start Branch first with the 2.5mg injection for 8 weeks and then move to the 5mg injection. tirzepatide 3-0 Yes [id number] 5mg inject 5 [facility] (MOUNJARO) 4-25 mg under ity o f 5 mg/0.5 mL 00:00: the skin [place] PnIj 00 weekly. Medical Start Branch first with the 2.5mg injection for 8 weeks and then move to the 5mg injection. levothyroxi 3-0 Yes [id number] 100ug Take 1 [facility] ne 100 mcg 4-25 tablet by ity of tablet 00:00: mouth [place] 00 every Medical morning. Branch tirzepatide 3-0 Yes [id number] 2.5mg inject 2.5 [facility] (MOUNJARO) 4-25 mg under ity o f 2.5 mg/0.5 00:00: [place] 00 weekly. Medical Start Branch first with the 2.5mg injection for 8 weeks and then move to the 5mg injection. tirzepatide 2023-0 Yes [id number] 5mg inject 5 [facility] (MOUNJARO) 4-25 mg under ity o f 5 mg/0.5 mL 00:00: the skin [place] PnIj 00 weekly. [facility] [place] [facility] first with the 2.5mg injection for 8 weeks and then move to the 5mg injection. levothyroxi 2022-0 Yes [id number] 100ug Take 1 [facility] ne 100 mcg 4-25 tablet by ity of tablet 00:00: mouth [place] 00 every Medical morning. Branch tirzepatide Yes [id number] 2.5mg inject 2.5 [facility] (MOUNJARO) 4-25 mg under ity o f 2.5 mg/0.5 00:00: [place] 00 weekly. Medical Start Branch first with the 2.5mg injection for 8 weeks and then move to the 5mg injection. levothyroxi 2022-0 Yes [id number] 100ug Take 1 [facility] ne 100 mcg 4-25 tablet by ity of tablet 00:00: mouth [place] 00 every Medical morning. Branch tirzepatide Yes [id number] 2.5mg inject 2.5 [facility] (MOUNJARO) 4-25 mg under ity o f 2.5 mg/0.5 00:00: the skin [place] PnIj 00 weekly. Medical [place] [facility] first with the 2.5mg injection for 8 weeks and then move to the 5mg injection. levothyroxi 2022-0 Yes [id number] 100ug Take 1 [facility] ne 100 mcg 4-25 tablet by ity of tablet 00:00: mouth [place] 00 every Medical morning. Branch tirzepatide Yes [id number] 2.5mg inject 2.5 [facility] (MOUNJARO) 4-25 mg under ity o f 2.5 mg/0.5 00:00: the skin [place] PnIj 00 weekly. Medical [place] [facility] first with the 2.5mg injection for 8 weeks and then move to the 5mg injection. levothyroxi 2022-0 Yes [id number] 100ug Take 1 [facility] ne 100 mcg 4-25 tablet by ity of tablet 00:00: mouth [place] 00 every Medical morning. Branch tirzepatide 0 Yes [id number] 2.5mg inject 2.5 [facility] (MOUNJAR[facility]) 4-25 mg under ity o f 2.5 mg/0.5 00:00: [place]nI[place] 00 weekly. Medical Start Branch first with the 2.5mg injection for 8 weeks and then move to the 5mg injection. levothyroxi Yes [id number] 100ug Take 1 [facility] ne 100 mcg 4-25 tablet by ity of tablet 00:00: mouth [place] 00 every Medical morning. Branch tirzepatide Yes [id number] 2.5mg inject 2.5 [facility] (MOUNJARO) 4-25 mg under ity o f 2.5 mg/0.5 00:00: the skin [place] PnIj 00 weekly. Medical [place] [facility] first with the 2.5mg injection for 8 weeks and then move to the 5mg injection. levothyroxi Yes [id number] 100ug Take 1 [facility] ne 100 mcg 4-25 tablet by ity of tablet 00:00: mouth [place] 00 every Medical morning. Branch tirzepatide Yes [id number] 2.5mg inject 2.5 [facility] (MOUNJAR[facility]) 4-25 mg under ity o f 2.5 mg/0.5 00:00: the [place] PnIj 00 weekly. [facility] first with the 2.5mg injection for 8 weeks and then move to the 5mg injection. levothyroxi Yes [id number] 100ug Take 1 [facility] ne 100 mcg 4-25 tablet by ity of tablet 00:00: mouth [place] 00 every Medical morning. Branch tirzepatide Yes [id number] 2.5mg inject 2.5 [facility] (MOUNJAR[facility]) 4-25 mg under ity o f 2.5 mg/0.5 00:00: the [place] PnIj 00 weekly. [facility] first with the 2.5mg injection for 8 weeks and then move to the 5mg injection. empaglifloz Yes [id number] 10mg Take 1 [facility] in 4-25 tablet by ity of ([place]) 00:00: mouth in [place] 10 mg 00 the Medical morning. Branch metformin Yes [id number] 1000mg Take 2 [facility] ER 500 mg 4-25 tablets by ity of 24 hr 00:00: mouth in [place] tablet 00 the Medical morning Branch and 2 tablets in the evening. Take with meals. levothyroxi 2023-0 Yes [id number] 100ug Take 1 [facility] ne 100 mcg 4-25 tablet by ity of tablet 00:00: mouth [place] 00 every Medical morning. Branch tirzepatide 2022-0 Yes [id number] 2.5mg inject 2.5 [facility] (MOUNJAR[facility]) 4-25 mg under ity o f 2.5 mg/0.5 00:00: [place] 00 weekly. Medical Start Branch first with the 2.5mg injection for 8 weeks and then move to the 5mg injection. tirzepatide 2022-0 Yes [id number] 5mg inject 5 [facility] (MOUNJARO) 4-25 mg under ity o f 5 mg/0.5 mL 00:00: the skin [place] PnIj 00 weekly. Medical Start Branch first with the 2.5mg injection for 8 weeks and then move to the 5mg injection. empaglifloz 2022-0 Yes [id number] 10mg Take 1 [facility] in 4-25 tablet by ity of ([place]) 00:00: mouth in [place] 10 mg 00 the Medical morning. Branch metformin 2022-0 Yes [id number] 1000mg Take 2 [facility] ER 500 mg 4-25 tablets by ity of 24 hr 00:00: mouth in [place] tablet 00 the Medical morning Branch and 2 tablets in the evening. Take with meals. levothyroxi 2022-0 Yes [id number] 100ug Take 1 [facility] ne 100 mcg 4-25 tablet by ity of tablet 00:00: mouth [place] 00 every Medical morning. Branch tirzepatide 2022-0 Yes [id number] 2.5mg inject 2.5 [facility] (MOUNJARO) 4-25 mg under ity o f 2.5 mg/0.5 00:00: [place]nI[place] 00 weekly. Medical Start Branch first with the 2.5mg injection for 8 weeks and then move to the 5mg injection. tirzepatide 2022-0 Yes [id number] 5mg inject 5 [facility] (MOUNJARO) 4-25 mg under ity o f 5 mg/0.5 mL 00:00: the skin [place] PnIj 00 weekly. Medical Start Branch first with the 2.5mg injection for 8 weeks and then move to the 5mg injection. tirzepatide 2022-0 2022- No [id number] 5mg inject 5 [facility] (MOUNJARO) 4-25 08-21 mg under ity of 5 mg/0.5 mL 00:00: 00:00 the skin [place] PnIj 00 :00 weekly. Medical Start Branch first with the 2.5mg injection for 8 weeks and then move to the 5mg injection. empaglifloz 2022-0 2022- No [id number] 10mg Take 1 [facility] in 4-25 08-15 tablet by ity of ([place]) 00:00: 00:00 mouth in [place] 10 mg 00 :00 the Medical morning. Branch empaglifloz 2022-0 2022- No [id number] 10mg Take 1 [facility] in 4-25 08-15 tablet by ity of ([place]) 00:00: 00:00 mouth in [place] 10 mg 00 :00 the Medical morning. Branch metformin 2022-0 2022- No [id number] 1000mg Take 2 [facility] ER 500 mg 4-25 06-05 tablets by ity of 24 hr 00:00: 00:00 mouth in [place] tablet 00 :00 the Medical morning Branch and 2 tablets in the evening. Take with meals. hydroCHLORO 2023-0 Yes Univer s thiazide 4-24 ity of 12.5 mg 00:00: [place] tablet 00 Medical Branch hydroCHLORO 2023-0 Yes Univer s thiazide 4-24 ity of 12.5 mg 00:00: [place] tablet 00 Medical Branch hydroCHLORO 2023-0 Yes Univer s thiazide 4-24 ity of 12.5 mg 00:00: [place] tablet 00 Medical Branch hydroCHLORO 2023-0 Yes Univer s thiazide 4-24 ity of 12.5 mg 00:00: [place] tablet 00 Medical Branch hydroCHLORO 2023-0 Yes Univer s thiazide 4-24 ity of 12.5 mg 00:00: [place] tablet 00 Medical Branch hydroCHLORO 2023-0 Yes Univer s thiazide 4-24 ity of 12.5 mg 00:00: [place] tablet 00 Medical Branch hydroCHLORO 2023-0 Yes Univer s thiazide 4-24 ity of 12.5 mg 00:00: [place] tablet 00 Medical Branch hydroCHLORO 2023-0 Yes Univer s thiazide 4-24 ity of 12.5 mg 00:00: [place] tablet 00 Medical Branch hydroCHLORO 2023-0 Yes Univer s thiazide 4-24 ity of 12.5 mg 00:00: [place] tablet 00 Medical Branch hydroCHLORO 2023-0 Yes Univer s thiazide 4-24 ity of 12.5 mg 00:00: [place] tablet 00 Medical Branch hydroCHLORO 2023-0 Yes Univer s thiazide 4-24 ity of 12.5 mg 00:00: [place] tablet 00 Medical Branch hydroCHLORO 2023-0 Yes [facility] s thiazide 4-24 ity of 12.5 mg 00:00: [place] tablet 00 Medical Branch hydroCHLORO 2023-0 Yes Univer s thiazide 4-24 ity of 12.5 mg 00:00: [place] tablet 00 Medical Branch hydroCHLORO 2023-0 Yes Univer s thiazide 4-24 ity of 12.5 mg 00:00: [place] tablet 00 Medical Branch hydroCHLORO 2023-0 2023- No Unive rs thiazide 4-24 08-15 ity of 12.5 mg 00:00: 00:00 [place] tablet 00 :00 Medical Branch hydroCHLORO 2023-0 2023- No Unive rs thiazide 4-24 08-15 ity of 12.5 mg 00:00: 00:00 [place] tablet 00 :00 Medical Branch atorvastati 2021-0 Yes [id number] 10mg Take 1 [facility] n 10 mg 8-16 tablet by ity of tablet 00:00: mouth at [place] [address] bedtime. Medical Branch atorvastati 2021-0 Yes [id number] 10mg Take 1 [facility] n 10 mg 8-16 tablet by ity of tablet 00:00: mouth at [place] 00 bedtime. Medical Branch atorvastati 2021-0 Yes [id number] 10mg Take 1 [facility] n 10 mg 8-16 tablet by ity of tablet 00:00: mouth at [place] 00 bedtime. Medical Branch atorvastati 2021-0 Yes [id number] 10mg Take 1 [facility] n 10 mg 8-16 tablet by ity of tablet 00:00: mouth at [place] 00 bedtime. Medical Branch atorvastati 2021-0 Yes [id number] 10mg Take 1 [facility] n 10 mg 8-16 tablet by ity of tablet 00:00: mouth at [place] 00 bedtime. Medical Branch atorvastati 0 Yes [id number] 10mg Take 1 [facility] n 10 mg 8-16 tablet by ity of tablet 00:00: mouth at [place] 00 bedtime. Medical Branch empaglifloz 0 Yes [id number] 10mg Take 1 [facility] in 8-16 tablet by ity of ([place]) 00:00: mouth in [place] 10 mg 00 the Medical morning. Branch levothyroxi 2021-0 Yes [id number] 100ug Take 1 [facility] ne 100 mcg 8-16 tablet by ity of tablet 00:00: mouth [place] 00 every Medical morning. Branch metformin 2021-0 Yes [id number] 1000mg Take 2 [facility] ER 500 mg 8-16 tablets by ity of 24 hr 00:00: mouth in [place] tablet 00 the Medical morning Branch and 2 tablets in the evening. Take with meals. semaglutide 2021- Yes [id number] 14mg Take 14 mg [facility] (RYBELSUS) 8-16 by mouth ity o f 14 mg Tab 00:00: every [place] 00 morning. Medical Branch atorvastati Yes [id number] 10mg Take 1 [facility] n 10 mg 8-16 tablet by ity of tablet 00:00: mouth at [place] 00 bedtime. Medical Branch empaglifloz Yes [id number] 10mg Take 1 [facility] in 8-16 tablet by ity of ([place]) 00:00: mouth in [place] 10 mg 00 the Medical morning. Branch levothyroxi 2021-0 Yes [id number] 100ug Take 1 [facility] ne 100 mcg 8-16 tablet by ity of tablet 00:00: mouth [place] 00 every Medical morning. Branch metformin 2021-0 Yes [id number] 1000mg Take 2 [facility] ER 500 mg 8-16 tablets by ity of 24 hr 00:00: mouth in [place] tablet 00 the Medical morning Branch and 2 tablets in the evening. Take with meals. semaglutide 2021-0 Yes [id number] 14mg Take 14 mg [facility] (RYBELSUS) 8-16 by mouth ity o f 14 mg Tab 00:00: every [place] 00 morning. Medical Branch atorvastati 2021-0 Yes [id number] 10mg Take 1 [facility] n 10 mg 8-16 tablet by ity of tablet 00:00: mouth at [place] [address] bedtime. Medical Branch empaglifloz Yes [id number] 10mg Take 1 [facility] in 8-16 tablet by ity of ([place]) 00:00: mouth in [place] 10 mg 00 the Medical morning. Branch levothyroxi Yes [id number] 100ug Take 1 [facility] ne 100 mcg 8-16 tablet by ity of tablet 00:00: mouth [place] 00 every Medical morning. Branch metformin Yes [id number] 1000mg Take 2 [facility] ER 500 mg 8-16 tablets by ity of 24 hr 00:00: mouth in [place] tablet 00 the Medical morning Branch and 2 tablets in the evening. Take with meals. semaglutide 2021- Yes [id number] 14mg Take 14 mg [facility] (RYBELSUS) 8-16 by mouth ity o f 14 mg Tab 00:00: every [place] 00 morning. Medical Branch atorvastati Yes [id number] 10mg Take 1 [facility] n 10 mg 8-16 tablet by ity of tablet 00:00: mouth at [place] [address] bedtime. Medical Branch atorvastati Yes [id number] 10mg Take 1 [facility] n 10 mg 8-16 tablet by ity of tablet 00:00: mouth at [place] [address] bedtime. Medical Branch atorvastati 2022- No [id number] 10mg Take 1 [facility] n 10 mg 8-16 06-05 tablet by ity of tablet 00:00: 00:00 mouth at [place] 00 :00 bedtime. Medical Branch empaglifloz 2022- No [id number] 10mg Take 1 [facility] in 8-16 04-25 tablet by ity of ([place]) 00:00: 00:00 mouth in [place] 10 mg 00 :00 the Medical morning. Branch levothyroxi 2021-2022- No [id number] 100ug Take 1 [facility] ne 100 mcg 8-16 04-25 tablet by ity of tablet 00:00: 00:00 mouth [place] 00 :00 every Medical morning. Branch metformin 2021-2022- No [id number] 1000mg Take 2 [facility] ER 500 mg 8-16 04-25 tablets by ity of 24 hr 00:00: 00:00 mouth in [place] tablet 00 :00 the Medical morning Branch and 2 tablets in the evening. Take with meals. semaglutide 2022- No [id number] 14mg Take 14 mg [facility] (RYBELSUS) 09-25 by mouth ity of 14 mg Tab 00:00: 00:00 every [place] 00 :00 morning. Medical Branch empaglifloz 2022- No [id number] 10mg Take 1 [facility] in 09-25 tablet by ity of ([place]) 00:00: 00:00 mouth in [place] 10 mg 00 :00 the Medical morning. Branch levothyroxi 2022- No [id number] 100ug Take 1 [facility] ne 100 mcg 09-25 tablet by ity of tablet 00:00: 00:00 mouth [place] 00 :00 every Medical morning. Branch metformin 2022- No [id number] 1000mg Take 2 [facility] ER 500 mg 09-25 tablets by ity of 24 hr 00:00: 00:00 mouth in [place] tablet 00 :00 the Medical morning Branch and 2 tablets in the evening. Take with meals. semaglutide 2022- No [id number] 14mg Take 14 mg [facility] (RYBELSUS) 09-25 by mouth ity of 14 mg Tab 00:00: 00:00 every [place] 00 :00 morning. Medical Branch empaglifloz 2021- No [id number] 10mg Take 1 [facility] in 05-22 tablet by ity of ([place]) 00:00: 00:00 [place] 10 mg 00 :00 daily. Medical Branch semaglutide 2021- No [id number] 14mg Take 14 mg [facility] (RYBELSUS) 05-22 by mouth ity of 14 mg Tab 00:00: 00:00 every [place] 00 :00 morning. Medical Branch atorvastati 2020-02- No [id number] 10mg Take 1 [facility] n 10 mg 03-19 tablet by ity of tablet 00:00: 00:00 mouth at [place] 00 :00 bedtime. Medical Branch metformin 2020-02- No [id number] 1000mg Take 2 [facility] ER 500 mg 2-07 08-16 tablets by ity of 24 hr 00:00: 00:00 mouth 2 [place] tablet 00 :00 (two) Medical times [place] daily with meals. levothyroxi 2020-02- No [id number] 100ug Take 1 [facility] ne 100 mcg 03-19 tablet by ity of tablet 00:00: 00:00 mouth [place] 00 :00 every Medical morning. [place] [facility] Yes 20mg Take 20 mg U nivers (CELEXA) 20 6-07 by mouth ity of mg tablet 15:03: daily. [address] citalopram Yes 20mg Take 20 mg U nivers (CELEXA) 20 6-07 by mouth ity of mg tablet 15:03: daily. [address] citalopra Yes 20mg Take 20 mg U nivers (CELEXA) 20 6-07 by mouth ity of mg tablet 15:03: daily. [address] citalopra Yes 20mg Take 20 mg U nivers (CELEXA) 20 6-07 by mouth ity of mg tablet 15:03: daily. [address] citalopram Yes 20mg Take 20 mg U nivers (CELEXA) 20 6-07 by mouth ity of mg tablet 15:03: daily. [address] citalopra Yes 20mg Take 20 mg U nivers (CELEXA) 20 6-07 by mouth ity of mg tablet 15:03: daily. [address] citalopram Yes 20mg Take 20 mg U nivers (CELEXA) 20 6-07 by mouth ity of mg tablet 15:03: daily. [address] citalopram Yes 20mg Take 20 mg U nivers (CELEXA) 20 6-07 by mouth ity of mg tablet 15:03: daily. [address] citalopram Yes 20mg Take 20 mg U nivers (CELEXA) 20 6-07 by mouth ity of mg tablet 15:03: daily. [address] citalopra Yes 20mg Take 20 mg U nivers (CELEXA) 20 6-07 by mouth ity of mg tablet 15:03: daily. [address] citalopram 2019-0 Yes 20mg Take 20 mg U nivers (CELEXA) 20 6-07 by mouth ity of mg tablet 15:03: daily. [address] citalopram 2019-0 Yes 20mg Take 20 mg U nivers (CELEXA) 20 6-07 by mouth ity of mg tablet 15:03: daily. [address] citalopram 2018-0 Yes 20mg Take 20 mg U nivers (CELEXA) 20 6-07 by mouth ity of mg tablet 15:03: daily. [address] citalopram 0 Yes 20mg Take 20 mg U nivers (CELEXA) 20 6-07 by mouth ity of mg tablet 15:03: daily. [address] citalopram 0 Yes 20mg Take 20 mg U nivers (CELEXA) 20 6-07 by mouth ity of mg tablet 15:03: daily. [address] citalopram 0 Yes 20mg Take 20 mg U nivers (CELEXA) 20 6-07 by mouth ity of mg tablet 15:03: daily. [address] citalopram 0 Yes 20mg Take 20 mg U nivers (CELEXA) 20 6-07 by mouth ity of mg tablet 15:03: daily. [address] citalopram 0 Yes 20mg Take 20 mg U nivers (CELEXA) 20 6-07 by mouth ity of mg tablet 15:03: daily. [address] citalopram 2018-0 Yes 20mg Take 20 mg U nivers (CELEXA) 20 6-07 by mouth ity of mg tablet 15:03: daily. [address] citalopram 2018-0 Yes 20mg Take 20 mg U nivers (CELEXA) 20 6-07 by mouth ity of mg tablet 15:03: daily. [address] citalopram 2018-0 Yes 20mg Take 20 mg U nivers (CELEXA) 20 6-07 by mouth ity of mg tablet 15:03: daily. [address] citalopram 2018-0 Yes 20mg Take 20 mg U nivers (CELEXA) 20 6-07 by mouth ity of mg tablet 15:03: daily. [address] citalopram Yes 20mg Take 20 mg U nivers (CELEXA) 20 6-07 by mouth ity of mg tablet 15:03: daily. [address] citalopram 0 Yes 20mg Take 20 mg U nivers (CELEXA) 20 6-07 by mouth ity of mg tablet 15:03: daily. [address] citalopram Yes 20mg Take 20 mg U nivers (CELEXA) 20 6-07 by mouth ity of mg tablet 15:03: daily. [address] citalopram Yes 20mg Take 20 mg U nivers (CELEXA) 20 6-07 by mouth ity of mg tablet 15:03: daily. [address] citalopram Yes 20mg Take 20 mg U nivers (CELEXA) 20 6-07 by mouth ity of mg tablet 15:03: daily. [address] citalopram Yes 20mg Take 20 mg U nivers (CELEXA) 20 6-07 by mouth ity of mg tablet 15:03: daily. [address] citalopram Yes 20mg Take 20 mg U nivers (CELEXA) 20 6-07 by mouth ity of mg tablet 15:03: daily. [address] citalopram Yes 20mg Take 20 mg U nivers (CELEXA) 20 6-07 by mouth ity of mg tablet 15:03: daily. [address] citalopram Yes 20mg Take 20 mg U nivers (CELEXA) 20 6-07 by mouth ity of mg tablet 15:03: daily. [address] metoprolol [id number] Yes TAKE 1 Unive rs tartrate 25 9-05 TABLET BY ity of mg tablet 00:00: MOUTH TWICE A Medical DAY Branch metoprolol [id number] Yes TAKE 1 Un[facility] rs tartrate 25 9-05 TABLET BY ity of mg tablet 00:00: MOUTH TWICE A Medical DAY Branch metoprolol [id number] Yes TAKE 1 Unive rs tartrate 25 9-05 TABLET BY ity of mg tablet 00:00: MOUTH [place] 00 TWICE A Medical DAY Branch metoprolol [id number] Yes TAKE 1 Unive rs tartrate 25 9-05 TABLET BY ity of mg tablet 00:00: MOUTH TWICE A Medical DAY Branch metoprolol 0 Yes TAKE 1 Unive rs tartrate 25 9-05 TABLET BY ity of mg tablet 00:00: MOUTH TWICE A Medical DAY Branch metoprolol Yes TAKE 1 Unive rs tartrate 25 9-05 TABLET BY ity of mg tablet 00:00: MOUTH TWICE A Medical DAY Branch metoprolol 0 Yes TAKE 1 Unive rs tartrate 25 9-05 TABLET BY ity of mg tablet 00:00: MOUTH TWICE A Medical DAY Branch metoprolol Yes TAKE 1 Unive rs tartrate 25 9-05 TABLET BY ity of mg tablet 00:00: MOUTH TWICE A Medical DAY Branch metoprolol 0 Yes TAKE 1 Unive rs tartrate 25 9-05 TABLET BY ity of mg tablet 00:00: MOUTH TWICE A Medical DAY Branch metoprolol 0 Yes TAKE 1 Unive rs tartrate 25 9-05 TABLET BY ity of mg tablet 00:00: MOUTH TWICE A Medical DAY Branch metoprolol 0 Yes TAKE 1 Unive rs tartrate 25 9-05 TABLET BY ity of mg tablet 00:00: MOUTH TWICE A Medical DAY Branch metoprolol 0 Yes TAKE 1 Unive rs tartrate 25 9-05 TABLET BY ity of mg tablet 00:00: MOUTH TWICE A Medical DAY Branch metoprolol 2018-0 Yes TAKE 1 Unive rs tartrate 25 9-05 TABLET BY ity of mg tablet 00:00: MOUTH TWICE A Medical DAY Branch metoprolol 0 Yes TAKE 1 Unive rs tartrate 25 9-05 TABLET BY ity of mg tablet 00:00: MOUTH TWICE A Medical DAY Branch metoprolol 0 Yes TAKE 1 Unive rs tartrate 25 9-05 TABLET BY ity of mg tablet 00:00: MOUTH 00 TWICE A Medical DAY Branch metoprolol 0 Yes TAKE 1 Unive rs tartrate 25 9-05 TABLET BY ity of mg tablet 00:00: MOUTH TWICE A Medical DAY Branch metoprolol 0 Yes TAKE 1 Unive rs tartrate 25 9-05 TABLET BY ity of mg tablet 00:00: MOUTH 00 TWICE A [facility] DAY Branch metoprolol 20180 Yes TAKE 1 Unive rs tartrate 25 9-05 TABLET BY ity of mg tablet 00:00: MOUTH TWICE A Medical DAY Branch metoprolol 20180 Yes TAKE 1 Unive rs tartrate 25 9-05 TABLET BY ity of mg tablet 00:00: MOUTH TWICE A Medical DAY Branch metoprolol 20180 Yes TAKE 1 Unive rs tartrate 25 9-05 TABLET BY ity of mg tablet 00:00: MOUTH TWICE A Medical DAY Branch metoprolol 0 Yes TAKE 1 Unive rs tartrate 25 9-05 TABLET BY ity of mg tablet 00:00: MOUTH TWICE A Medical DAY Branch metoprolol 0 Yes TAKE 1 Unive rs tartrate 25 9-05 TABLET BY ity of mg tablet 00:00: MOUTH TWICE A Medical DAY Branch metoprolol 20180 Yes TAKE 1 Unive rs tartrate 25 9-05 TABLET BY ity of mg tablet 00:00: MOUTH TWICE A Medical DAY Branch metoprolol 0 Yes TAKE 1 Unive rs tartrate 25 9-05 TABLET BY ity of mg tablet 00:00: MOUTH TWICE A Medical DAY Branch metoprolol 20180 Yes TAKE 1 Unive rs tartrate 25 9-05 TABLET BY ity of mg tablet 00:00: MOUTH TWICE A Medical DAY Branch metoprolol 20180 Yes TAKE 1 Unive rs tartrate 25 9-05 TABLET BY ity of mg tablet 00:00: MOUTH TWICE A Medical DAY Branch metoprolol 2018-0 Yes TAKE 1 Unive rs tartrate 25 9-05 TABLET BY ity of mg tablet 00:00: MOUTH TWICE A Medical DAY Branch metoprolol 2018-0 Yes TAKE 1 Unive rs tartrate 25 9-05 TABLET BY ity of mg tablet 00:00: MOUTH TWICE A Medical DAY Branch metoprolol 2018-0 Yes TAKE 1 Unive rs tartrate 25 9-05 TABLET BY ity of mg tablet 00:00: MOUTH TWICE A Medical DAY Branch metoprolol 0 Yes TAKE 1 Unive rs tartrate 25 9-05 TABLET BY ity of mg tablet 00:00: MOUTH TWICE A Medical DAY Branch metoprolol 2018-0 Yes TAKE 1 Unive rs tartrate 25 9-05 TABLET BY ity of mg tablet 00:00: MOUTH [place] [address] TWICE A Medical DAY Branch Immunizations Ordered Filled Immunization Date Status Comments [facility] e Immunization Name Name SARS-COV-2 COVID-19 2020-08-04 Completed Unive rsity of PFIZER VACCINE 00:00:00 [facility] SARS-COV-2 COVID-19 2020-08-04 Completed Unive rsity of PFIZER VACCINE 00:00:00 [facility] SARS-COV-2 COVID-19 2020-08-04 Completed Unive rsity of PFIZER VACCINE 00:00:00 [facility] SARS-COV-2 COVID-19 2020-08-04 Completed Unive rsity of PFIZER VACCINE 00:00:00 [facility] SARS-COV-2 COVID-19 2020-08-04 Completed Unive rsity of PFIZER VACCINE 00:00:00 [facility] SARS-COV-2 COVID-19 2020-08-04 Completed Unive rsity of PFIZER VACCINE 00:00:00 [facility] SARS-COV-2 COVID-19 2020-08-04 Completed Unive rsity of PFIZER VACCINE 00:00:00 [facility] SARS-COV-2 COVID-19 2020-08-04 Completed Unive rsity of PFIZER VACCINE 00:00:00 [facility] SARS-COV-2 COVID-19 2020-08-04 Completed Unive rsity of PFIZER VACCINE 00:00:00 [facility] SARS-COV-2 COVID-19 2020-08-04 Completed Unive rsity of PFIZER VACCINE 00:00:00 [facility] SARS-COV-2 COVID-19 2020-08-04 Completed Unive rsity of PFIZER VACCINE 00:00:00 [facility] SARS-COV-2 COVID-19 2020-08-04 Completed Unive rsity of PFIZER VACCINE 00:00:00 [facility] SARS-COV-2 COVID-19 2020-08-04 Completed Unive rsity of PFIZER VACCINE 00:00:00 [facility] SARS-COV-2 COVID-19 2020-08-04 Completed Unive rsity of PFIZER VACCINE 00:00:00 [place] [facility] SARS-COV-2 COVID-19 2020-08-04 Completed Unive rsity of PFIZER VACCINE 00:00:00 [facility] Branch SARS-COV-2 COVID-19 2020-08-04 Completed Unive rsity of PFIZER VACCINE 00:00:00 [facility] Branch SARS-COV-2 COVID-19 2020-08-04 Completed Unive rsity of PFIZER VACCINE 00:00:00 [facility] Branch SARS-COV-2 COVID-19 2020-08-04 Completed Unive rsity of PFIZER VACCINE 00:00:00 [facility] Branch SARS-COV-2 COVID-19 2020-08-04 Completed Unive rsity of PFIZER VACCINE 00:00:00 [facility] Branch SARS-COV-2 COVID-19 2020-08-04 Completed Unive rsity of PFIZER VACCINE 00:00:00 [facility] Branch SARS-COV-2 COVID-19 2020-08-04 Completed Unive rsity of PFIZER VACCINE 00:00:00 [facility] Branch SARS-COV-2 COVID-19 2020-07-14 Completed Unive rsity of PFIZER VACCINE 00:00:00 [facility] Branch SARS-COV-2 COVID-19 2020-07-14 Completed Unive rsity of PFIZER VACCINE 00:00:00 [facility] Branch SARS-COV-2 COVID-19 2020-07-14 Completed Unive rsity of PFIZER VACCINE 00:00:00 [facility] SARS-COV-2 COVID-19 2020-07-14 Completed Unive rsity of PFIZER VACCINE 00:00:00 [facility] Branch SARS-COV-2 COVID-19 2020-07-14 Completed Unive rsity of PFIZER VACCINE 00:00:00 [facility] Branch SARS-COV-2 COVID-19 2020-07-14 Completed Unive rsity of PFIZER VACCINE 00:00:00 [facility] Branch SARS-COV-2 COVID-19 2020-07-14 Completed Unive rsity of PFIZER VACCINE 00:00:00 [facility] SARS-COV-2 COVID-19 2020-07-14 Completed Unive rsity of PFIZER VACCINE 00:00:00 [facility] SARS-COV-2 COVID-19 2020-07-14 Completed Unive rsity of PFIZER VACCINE 00:00:00 [facility] Branch SARS-COV-2 COVID-19 2020-07-14 Completed Unive rsity of PFIZER VACCINE 00:00:00 [facility] Branch SARS-COV-2 COVID-19 2020-07-14 Completed Unive rsity of PFIZER VACCINE 00:00:00 [facility] SARS-COV-2 COVID-19 2020-07-14 Completed Unive rsity of PFIZER VACCINE 00:00:00 [facility] Branch SARS-COV-2 COVID-19 2020-07-14 Completed Unive rsity of PFIZER VACCINE 00:00:00 [facility] Branch SARS-COV-2 COVID-19 2020-07-14 Completed Unive rsity of PFIZER VACCINE 00:00:00 [facility] Branch SARS-COV-2 COVID-19 2020-07-14 Completed Unive rsity of PFIZER VACCINE 00:00:00 [facility] Branch SARS-COV-2 COVID-19 2020-07-14 Completed Unive rsity of PFIZER VACCINE 00:00:00 [facility] SARS-COV-2 COVID-19 2020-07-14 Completed Unive rsity of PFIZER VACCINE 00:00:00 [facility] Branch SARS-COV-2 COVID-19 2020-07-14 Completed Unive rsity of PFIZER VACCINE 00:00:00 [facility] SARS-COV-2 COVID-19 2020-07-14 Completed Unive rsity of PFIZER VACCINE 00:00:00 [facility] SARS-COV-2 COVID-19 2020-07-14 Completed Unive rsity of PFIZER VACCINE 00:00:00 [facility] SARS-COV-2 COVID-19 2020-07-14 Completed Unive rsity of PFIZER VACCINE 00:00:00 [facility] Vital Signs Vital Name Observation Time Observation Value Comments Source Systolic blood 2022-09-24 21:41:00 119 mm[Hg] Univer sity of pressure [facility] Diastolic blood 2022-09-24 21:41:00 80 mm[Hg] Unive rsity of pressure [facility] Heart rate 2022-09-24 21:41:00 74 /min Universi ty of [facility] Respiratory rate 2022-09-24 21:41:00 19 /min Univ ersity [facility] [place] [facility] Body height 2022-09-24 21:41:00 162.6 cm [facility] Body weight 2022-09-24 21:41:00 84.188 kg [facility] BMI 2022-09-24 21:41:00 31.86 kg/m2 [facility] Oxygen saturation in 2022-09-24 21:41:00 94 /min University of Arterial blood by [facility] Pulse oximetry Branch Systolic blood 2022-09-13 18:10:00 121 mm[Hg] Univer sity of [facility] Diastolic blood 2022-09-13 18:10:00 79 mm[Hg] Unive rsity of pressure [facility] Heart rate 2022-09-13 18:10:00 71 /min [facility] Body temperature 2022-09-13 18:10:00 36.28 Peg Univ ers[facility] Body height 2022-09-13 18:10:00 162.6 cm [facility] Body weight 2022-09-13 18:10:00 84.188 kg [facility] BMI 2022-09-13 18:10:00 31.86 kg/m2 [facility] Oxygen saturation in 2022-09-13 18:10:00 97 /min University of Arterial blood by [facility] Pulse oximetry Branch Systolic blood 2022-07-12 14:13:00 121 mm[Hg] Univer sity of [facility] Diastolic blood 2022-07-12 14:13:00 82 mm[Hg] Unive rsity of pressure [facility] Heart rate 2022-07-12 14:13:00 82 /min [facility] Body temperature 2022-07-12 14:13:00 36.72 Peg Univ [facility] Respiratory rate 2022-07-12 14:13:00 16 /min Univ [facility] Body height 2022-07-12 14:13:00 162.6 cm [facility] Body weight 2022-07-12 14:13:00 82.6 kg [facility] BMI 2022-07-12 14:13:00 31.26 kg/m2 [facility] [place] Oxygen saturation in 2022-07-12 14:13:00 97 /min University of Arterial blood by [facility] Pulse oximetry Branch Systolic blood 2022-06-04 15:19:00 129 mm[Hg] Univer sity of pressure [facility] Diastolic blood 2022-06-04 15:19:00 85 mm[Hg] Unive rsity of pressure [facility] Heart rate 2022-06-04 15:19:00 62 /min [facility] [place] Body height 2022-06-04 15:19:00 162.6 cm [facility] Body weight 2022-06-04 15:19:00 83.462 kg [facility] BMI 2022-06-04 15:19:00 31.58 kg/m2 [facility] [place] Systolic blood 2021-09-25 20:02:00 121 mm[Hg] Univer sity of pressure [facility] Diastolic blood 2021-09-25 20:02:00 80 mm[Hg] Unive rsity of pressure [facility] Heart rate 2021-09-25 20:02:00 69 /min [facility] Body height 2021-09-25 20:02:00 162.6 cm [facility] Body weight 2021-09-25 20:02:00 83.915 kg [facility] BMI 2021-09-25 20:02:00 31.76 kg/m2 Universi ty of [facility] Oxygen saturation in 2021-09-25 20:02:00 100 /min University of Arterial blood by [facility] Pulse oximetry Branch Procedures Procedure Date / Time Performing Clinician Source Performed TRANSTHORACIC ECHO (TTE) 2022-10-04 21:29:15 Salma Sloan Uni [facility] [place], operated by [facility] CONSENT/REFUSAL FOR 2022-10-04 21:00:10 Doctor Unassigned, No [facility] DIAGNOSIS AND TREATMENT [facility] PATIENT FINANCIAL 2022-07-12 13:55:13 Doctor Unassigned, No [facility] POLICY Name [facility] POCT HEMOGLOBIN A1C TEST 2022-06-04 15:26:00 [facility] 2021-09-25 20:09:00 EthanNelory Pelayo [facility] Encounters Start End Encounter Admission Attending Care Care Encounter Source Date/Time Date/Time Type Type Clinicians Facility Department ID 2023-07-18 2023-07-18 Outpatient R ALESHIA OLSON [facility] U T[facility] [id number] Univers 08:30:00 08:30:00 [facility] 2022-12-06 2022-12-06 Outpatient R PRATIMAGALA [facility] [id number] Univers 13:00:00 13:00:00 SMITA [facility] 2022-11-06 2022-11-06 Outpatient R ALESHIA OLSON [facility] U T[facility] [id number] Univers 00:00:00 00:00:00 ALESHIA OLSON [facility] 2022-10-25 2022-10-25 Outpatient R ALESHIA OLSON [facility] U T[facility] [id number] Univers 16:13:43 23:59:00 ALESHIA OLSON [facility] 2022-10-25 2022-10-25 [facility] 1.2.840.114 [id number] [facility] 16:13:43 23:59:00 Encounter sAleshia 350.1.13.10 ity of [place] 4.2.7.2.686 [facility] s [place] [id number] [facility] [address] [place] 2022-10-09 2022-10-09 Telephone [facility] [id number] Univers 00:00:00 00:00:00 Salma ARREAGA 350.1.13.10 ity of [place] 4.2.7.2.686 [facility] s PROFESSIO [phone] Il dical NAL 059 [facility] 2022-10-07 2022-10-07 Patient [facility] 1.2.840.114 [id number] Univers 00:00:00 00:00:00 Secure Msg Salma ARREAGA 350.1.13.10 [place] [phone] Il dical NAL 059 [facility] 2022-10-04 2022-10-04 Outpatient R [facility] [id number] Univers 16:00:00 23:59:00 MOHAMMED ity o f [facility] 2022-10-04 2022-10-04 [facility] 1.2.840.114 [id number] Univers 16:00:00 23:59:00 Encounter Salma ARREAGA 350.1.13.10 [place] [id number] Il dical NAL 843 [facility] 2022-10-04 2022-10-04 Orders Doctor ESTUARDO 1.2.840.114 [id number] Univers 00:00:00 00:00:00 Only Unassigned, MONCHO 350.1.13.10 ity of [place] [facility] 4.2.7.2.686 Da as [id number] [facility] [address] [place] 2022-09-30 2022-09-30 Refill ESTUARDO [place] 1.2.209.908 [id number] Univers 00:00:00 00:00:00 Casandra IVAN 350.1.13.10 i ty of [facility] 4.2.7.2.686 Da as [phone] [facility] [address] [place] 2022-09-24 2022-09-24 Outpatient R [facility] [id number] Univers 16:30:00 17:08:17 MARIEGENA valentine o f [facility] 2022-09-24 2022-09-24 Office [facility] 1.2.840.114 [id number] Univers 16:30:00 17:08:17 Visit Salma ARREAGA 350.1.13.10 [place] [phone] Il dical NAL 059 [facility] 2022-09-24 2022-09-24 Patient Pang-Odalys [facility] OTERO 1.2.840.114 [id number] Univers 00:00:00 00:00:00 Secure Msg s, Aleshia RICHARD 350.1.13.10 ity of [place] [id number] [facility] [address] [place] 2022-09-16 2022-09-[address] [facility] 1.2.840.114 [id number] Univers 00:00:00 00:00:00 Surgery Lyn ARREAGA 350.1.13.10 ity of [facility] 4.2.7.2.[place] [id number] Il dical NAL 188 [facility] 2022-09-13 2022-09-13 Yarn Sorter 2, Adc Lab [facility] 1.2.840.114 [id number] [facility] 13:45:00 14:00:00 Visit ZelayaSarahKylee [place] 350.1.13. 10 ity of [facility] 4.2.[place].2.[place] [id number] Il dical NAL 353 [facility] 2022-09-13 2022-09-13 [facility] [id number] [facility] 13:00:00 13:57:24 KYLEE grijalva o f [facility] 2022-09-13 2022-09-13 Office [facility] 1.2.840.114 [id number] [facility] 13:00:00 13:57:24 Visit Kylee ARREAGA 350.1.13.10 ity of [facility] 4.2.7.2.[place] [id number] Il dical NAL 188 [facility] 2022-09-10 2022-09-10 Telephone [facility] 1.2.840.114 [id number] [facility] 00:00:00 00:00:00 sAleshia 350.1.13.10 ity of [facility] 4.2.7.2.[place] [phone] Il dical NAL 134 [facility] 2022-09-10 2022-09-10 Patient [facility] 1.2.840.114 [id number] [facility] 00:00:00 00:00:00 Secure Msg s, Aleshia RICHARD 350.1.13.10 [place] [id number] [facility] [address] 2022-09-06 2022-09-06 Patient Cindi [facility] 1.2.840.114 [id number] Univers 00:00:00 00:00:00 Secure Aleshia Hopkins 350.1.13.10 [place] [id number] [facility] [address] [place] 2022-08-30 2022-08-30 Outpatient R ALESHIA OLSON [facility] U TMB [id number] Univers 14:15:06 23:59:00 [facility] 2022-08-30 2022-08-30 [facility] 1.2.840.114 [id number] Univers 14:15:06 23:59:00 Encounter Aleshia wallace 350.1.13.10 ity of [facility] 4.2.7.2.[place] [phone] [facility] [address] 2022-08-28 2022-08-28 Telephone Kings [facility] [id number] Univers 00:00:00 00:00:00 Kristie ARREAGA 350.1.13.10 i ty of [place] [id number] Il dical [facility] 408 [facility] 2022-08-19 2022-08-19 Outpatient R OTILIO OLSONL [facility] U TMB [id number] Univers 00:00:00 00:00:00 [facility] 2022-08-12 2022-08-12 Refill Gerson [facility] 1.2.840.114 [id number] Univers 00:00:00 00:00:00 Smita HEALTH 350.1.13.10 it y of [place] 4.2.7.2.686 Da as DAWIT?BLEA [id number] [address] MEDICAL OFFICE [facility] 2022-07-22 2022-07-22 [facility] 1.2.840.114 [id number] Univers 00:00:00 00:00:00 Secure Msg Aleshia wallace 350.1.13.10 [place] [id number] [address] 2022-07-15 2022-07-15 Refill Ethan [place] 1.2.840.114 [id number] Univers 00:00:00 00:00:00 [facility] 350.1.13.10 it y [facility] 4.2.7.2.686 Da as DAWIT?BLEA [id number] [address] OFFICE [facility] 2022-07-12 2022-07-12 Outpatient R ALESHIA OLSON [facility] [id number] Univers 09:00:00 09:27:48 ALESHIA OLSON ity of [facility] 2022-07-12 2022-07-12 Office [facility] 1.2.840.114 [id number] Univers 09:00:00 09:27:48 Visit Aleshia wallace 350.1.13.10 it[place] [id number] [address] 2022-07-12 2022-07-12 Orders Doctor ESTUARDO 1.2.840.114 [id number] Univers 00:00:00 00:00:00 Only Unassigned, MONCHO 350.1.13.10 ity of [place] [facility] 4.2.7.2.686 Da as [id number] [address] 2022-06-10 2022-06-10 Telephone Ethan [facility] 1.2.577.900 [id number] Univers 00:00:00 00:00:00 [facility] 350.1.13.10 it y of [facility] 4.2.7.2.686 Da as DAWIT?BLEA [phone] [address] MEDICAL OFFICE BUILDING 2022-06-04 2022-06-04 Yarn Sorter Lab, Ang - Db [facility] 1.2.840.1 [id number] Univers 11:45:00 12:00:00 Visit Ethan, [facility] 350.1.13.10 ity of [place] 4.2.7.2.686 Da as DAWIT?BLEA [id number] [facility] 353 [facility] OFFICE [facility] 2022-06-04 2022-06-04 Office [facility] 1.2.840.114 [id number] Univers 10:30:00 11:41:02 Visit [facility] 350.1.13.10 it y of [place] 4.2.7.2.686 Da as DAWIT?BLEA [id number] [address] OFFICE [facility] 2022-06-04 2022-06-04 [facility] [id number] Univers 10:30:00 11:41:02 [facility] 2022-05-09 2022-05-09 [facility]ill [facility] 1.2.840.114 [id number] Univers 00:00:00 00:00:00 [facility] 350.1.13.10 it y of [place] 4.2.7.2.686 Da as DAWIT?BLEA [id number] [address] 2022-05-09 2022-05-09 Refill [facility] 1.2.840.114 [id number] Univers 00:00:00 00:00:00 [facility] 350.1.13.10 it y of [place] 4.2.7.2.686 Da as DAWIT?BLEA [id number] [address] OFFICE [facility] 2021-09-25 2021-09-25 [facility] [id number] Univers 15:00:00 15:35:41 [facility] 2021-09-25 2021-09-25 Office [facility] 1.2.840.114 [id number] Univers 15:00:00 15:35:41 Visit [facility] 350.1.13.10 it y of [place] 4.2.7.2.686 Da as DAWIT?BLEA [id number] Me dical ALEC [address] MEDICAL OFFICE BUILDING 2021-09-25 2021-09-25 Orders Doctor ESTUARDO 1.2.840.114 [id number] Univers 00:00:00 00:00:00 Only Unassigned, MONCHO 350.1.13.10 ity of [place] [facility] 4.2.7.2.686 Da as [id number] [place] [address] Branch 2021-06-13 2021-06-13 Patient Ethan [facility] 1.2.840.114 [id number] Univers 00:00:00 00:00:00 Secure [facility] 350.1.13.10 ity of [facility] 4.2.7.2.[place] [id number] [facility] AND [place] [address] [place] [facility] 2021-05-22 2021-05-22 Yarn Sorter Lab, Ang - Db [facility] 1.2.840.1 14 [id number] Univers 16:30:00 16:45:00 Visit Ethan MEDEM 350.1.13.10 ity of [facility] 4.2.7.2.686 Da as DAWIT?BLEA [phone] Me florencia [facility] [address] MEDICAL OFFICE BUILDING 2021-05-22 2021-05-22 Outpatient R ETHAN [facility] [id number] Univers 15:30:00 16:17:28 [facility] 2021-05-22 2021-05-22 Office [facility] 1.2.840.114 [id number] Univers 15:30:00 16:17:28 Visit MEDEM 350.1.13.10 it y [facility] 4.2.7.2.686 Da as DAWIT?BLEA [id number] Me florencia [facility] [address] MEDICAL OFFICE BUILDING 2021-05-22 2021-05-22 Outpatient R ETHAN [facility] [id number] Univers 15:30:00 16:17:28 [facility] 2021-03-24 2021-03-24 Refill Ethan [facility] 1.2.840.114 [id number] Univers 00:00:00 00:00:00 MEDEM 350.1.13.10 it y of [place] 4.2.7.2.686 Da as DAWIT?BLEA [id number] [address] OFFICE [facility] 2021-01-16 2021-01-16 Outpatient R ETHAN [facility] [id number] Univers 15:00:00 15:57:41 [facility] 2021-01-16 2021-01-16 [facility] [id number] Univers 15:00:00 15:57:41 [facility] 2021-01-16 2021-01-16 Office [facility] 1.2.840.114 [id number] Univers 14:50:40 15:57:41 Visit [facility] 350.1.13.10 it y of [facility] 4.2.7.2.686 Da as DAWIT?BLEA [id number] [address] OFFICE [facility] 2021-01-03 2021-01-03 [facility] [id number] Univers 13:00:00 13:00:00 [facility] 2020-10-29 2020-10-29 Refill [facility] 1.2.840.114 [id number] Univers 00:00:00 00:00:00 [facility] 350.1.13.10 i [place] [id number] [address] 2020-10-13 2020-10-13 Telephone [facility] 1.2.225.575 [id number] Univers 00:00:00 00:00:00 [facility] 350.1.13.10 i [place] [id number] [address] 2020-10-13 2020-10-13 Orders Doctor MARTE 1.2.840.114 [id number] Univers 00:00:00 00:00:00 Only Unassigned, MONCHO [id number] ity of [place] [facility] 4.2.7.2.686 [place] as [phone] [address] 2020-09-14 2020-09-14 Patient [facility] [id number] Univers 00:00:00 00:00:00 Secure Msg [place] [id number] [id number] [phone] [address] 2020-09-06 2020-09-06 Office [facility] [id number] Univers 14:47:33 15:44:05 Visit [place] [id number] [place] [id number] [phone] [address] 2020-09-06 2020-09-06 [facility] [id number] Univers 15:00:00 15:00:00 WENTONG ity [facility] 2020-08-15 2020-08-15 [facility] 1.2.840.114 [id number] Univers 00:00:00 00:00:00 [place] 350.1.13.10 [place] [phone] [address] 2020-07-02 2020-07-02 Telephone [facility] [id number] Univers 00:00:00 00:00:00 [place] 350.1.13.10 [place] [phone] [address] 2020-06-28 2020-06-28 Patient [facility] 1.2.840.114 [id number] Univers 00:00:00 00:00:00 Secure Msg [place] 350.1.13.10 [place] [phone] [address] 2020-06-06 2020-06-06 Yarn Sorter 2, Adc Lab [facility] 1.2.840.114 [id number] Univers 09:23:52 09:38:52 Visit Laila Krishnamurthy 350.1.13.10 [place] [phone] [facility] 353 [facility] 2020-06-06 2020-06-06 Office Ethan [facility] 1.2.840.114 [id number] Univers 08:20:46 09:21:10 Visit Laila Arreaga 350.1.13.10 [place] [phone] [facility] 220 [facility] 2020-06-06 2020-06-06 Outpatient R ETHAN [facility] [id number] Univers 08:30:00 08:30:00 LAILA ity [facility] 2020-06-06 2020-06-06 Orders Doctor ESTUARDO 1.2.840.114 [id number] Univers 00:00:00 00:00:00 Only Unassigned, MONCHO 350.1.13.10 ity of [place] [facility] 4.2.7.2.686 Da as [phone] [address] 2020-05-19 2020-05-19 Refill [facility] 1.2.840.114 [id number] Univers 00:00:00 00:00:00 Laila Arreaga 350.1.13.10 [place] [phone] [facility] [address] [facility] 2020-04-27 2020-04-27 Patient Homero [facility] 1.2.840.114 [id number] Univers 00:00:00 00:00:00 Outreach Konrad PRIMARY 350.1.13.10 [place] [facility] [place] [phone] [facility] [address] [place] 2020-04-06 2020-04-06 Refill Ethan [facility] 1.2.840.114 [id number] Univers 00:00:00 00:00:00 Laila Arreaga 350.1.13.10 [place] [phone] Il dical nal 220 [facility] 2020-03-12 2020-03-12 Nurse ESTUARDO Boyce 1.2.840.114 [id number] Univers 00:00:00 00:00:00 Triage Moni IVAN 350.1.13.10 it y of [facility] 4.2.7.2.686 Da as [phone] [facility] [address] [place] 2020-02-14 2020-02-14 Patient [facility] 1.2.840.114 [id number] Univers 00:00:00 00:00:00 Secure Msg Laila Norriston 350.1.13.10 [place] [phone] Il dical nal 220 [facility] 2019-12-06 2019-12-06 [id number] Univers 13:00:00 13:00:00 SHIRA diazy [facility] 2019-09-01 2019-09-01 Telephone [facility] 1.2.840.114 [id number] 00:00:00 00:00:00 Shira EDMONDS 350.1.13.10 [place] 4[place]2.7.2.686 [place] [phone] [place] [address] [facility] 2019-09-01 2019-09-01 [facility] 1.2.840.114 [id number] Univers 00:00:00 00:00:00 Shira FIELDSPEC 350.1.13.10 [place] [phone] [address] [facility] 2019-08-31 2019-08-31 [facility] 1.2.840.114 [id number] Univers 10:17:14 11:20:38 Visit Shira EDMONDS 350.1.13.10 [place] [phone] [facility] AND [address] [facility] 2019-08-31 2019-08-31 Outpatient R ALEX [facility] [id number] Univers 11:00:00 11:00:00 SHIRA ity of [facility] 2019-04-30 2019-04-30 Telephone Krishnamurthy, [facility] [id number] Univers 00:00:00 00:00:00 Laila [place] 350.1.13.10 [place] [phone] [facility] 220 [facility] 2019-04-28 2019-04-28 Patient [facility] 1.2.840.114 [id number] Univers 00:00:00 00:00:00 Secure Msg Laila Arreaga 350.1.13.10 [place] [phone] [facility] 220 [facility] 2019-04-05 2019-04-05 Telephone [facility] [id number] Univers 00:00:00 00:00:00 Laila Arreaga 350.1.13.10 [place] [phone] [facility] 220 [facility] 2019-04-01 2019-04-01 Telephone [facility] [id number] Univers 00:00:00 00:00:00 Laila Arreaga 350.1.13.10 [place] [phone] [facility] 220 [facility] 2019-03-30 2019-03-30 Yarn Sorter 2, Adc Lab [facility] 1.2.840.114 [id number] Univers 15:25:50 15:40:50 Visit Laila Krishnamurthy 350.1.13.10 [place] [phone] [facility] 353 [facility] 2019-03-30 2019-03-30 Office [facility] 1.2.840.114 [id number] Univers 14:44:13 15:22:22 Visit Laila Arreaga 350.1.13.10 [place] [phone] [facility] 220 [facility] 2019-03-30 2019-03-30 Orders Doctor ESTUARDO 1.2.840.114 [id number] Univers 00:00:00 00:00:00 Only Unassigned, MONCHO 350.1.13.10 ity of [place] [facility] 4.2.7.2.686 Da as [phone] [address] 2018-10-28 2018-10-28 Office Krishnamurthy, [facility] 1.2.840.114 [id number] Univers 13:35:24 14:28:52 Visit Laila [place] 350.1.13.10 [place] [phone] [address] 2018-10-28 2018-10-28 Orders Doctor ESTUARDO 1.2.840.114 [id number] Univers 00:00:00 00:00:00 Only Unassigned, MONCHO 350.1.13.10 ity of [place] [facility] 4.2.7.2.686 Da as [phone] [address] Results Test Description Test Time Test Comments Results Result Comments Source Transthoracic echo (TTE) 2022-10-05 04:21:46 Test Item Value Reference Range Interpretation Comme nts Height (test code = 9227752465) 64 in Weight (test code = 2342145519) 185 lbs Systolic BP (test code = 1541200873) 111 mmHg Diastolic BP (test code = 7998433993) 70 mmHg Heart Rate (test code = 9799005811) 70 bpm MR max PG (test code = 2773770926) 48.90 mm[Hg] MR max fabian (test code = 0728167166) 349.50 cm/s Ao root diam (test code = 6704529041) 2.31 cm Mr max fabian (test code = 5437110747) 349.5 m/s Aortic root (test code = 8593038261) 2.31 cm Ao root annulus (test code = 2.31 cm 0704517741) BSA (test code = 3533238535) 1.89 m2 LVOT diameter (test code = 4491512471) 1.62 cm LVOT area (test code = 3155943903) 2.06 cm2 LA size (test code = 2809808112) 3.1 cm ACS (test code = 3330910729) 1.76 cm PV PEAK VELOCITY (test code = 89.6 cm/s 5022331171) PV peak gradient (test code = 3.2 mmHg 5535704182) LVIDD (test code = 3169857610) 4.80 cm Left Ventricular End Diastolic Volume 107.5 mL by Teichholz Method (test code = 8357813) IVS (test code = 9297105491) 0.98 cm Interventricular Septum Diastolic 0.98 cm Thickness by 2D (test code = 5083320) LVPWD (test code = 7741704151) 1.03 cm PW (test code = 2417150860) 1.03 cm 0.6-1.1 EF(Teich) (test code = 6715355955) 61.40 % LVIDS (test code = 4267970639) 3.20 cm Left Ventricular End Systolic Volume 41.5 mL by Teichholz Method (test code = 0214884) FS (test code = 8524815183) 33 % EF - 2D (test code = 99212425) 61.40 % LAV(MOD-sp4) (test code = 4201765294) 25.10 mL MV E-F slope (test code = 0834469206) 42.70 cm/s MV Peak E Fabian (test code = 2094292138) 81.8 cm/s MV valve area p 1/2 method (test code 4.30 cm2 = 6022162590) MV dec slope (test code = 6422529089) 467.30 cm/s2 MV P1/2t max fabian (test code = 80.70 cm/s 2535046846) MV Peak A Fabian (test code = 5779331010) 84.9 cm/s E/A ratio (test code = 6331851502) 0.96 ratio LVOT stroke volume (test code = 63.20 cm3 7752090596) LVOT peak fabian (test code = 4699740185) 128.4 cm/s LVOT mn grad (test code = 5168287369) 2.9 mmHg AV LVOT peak gradient (test code = 6.6 mmHg 0385975078) LVOT peak VTI (test code = 7494583243) 30.7 cm LV V1 mean (test code = 7777992549) 76.40 cm/s Aortic valve mean velocity (test code 116.7 cm/s = 3918769131) Ao peak fabian (test code = 3612481254) 197.4 cm/s Ao VTI (test code = 7630803837) 43.1 cm AV area by cont VTI (test code = 1.5 cm2 9805980457) AV area peak fabian (test code = 1.3 cm2 0918146177) Ao max PG (test code = 9434330478) 15.60 mm[Hg] AV peak gradient (test code = 15.6 mmHg 0844871407) AV valve area (test code = 0591401394) 1.47 cm2 AV mean gradient (test code = 6.5 mmHg 9497041634) TR Peak Fabian (test code = 5179144692) 270.5 cm/s Triscuspid Valve Regurgitation Peak 29.3 mmHg Gradient (test code = 8566467028) LA Volume Index (BP) (test code = 13.3 mL/m2 5035816757) LA volume (BP) (test code = 25.1 mL 8276892149) LAV(MOD-sp2) (test code = 9767118414) 23.70 mL Radiology Study observation (narrative) (test code = 71388-7) ANNEMARIE (test code = ANNEMARIE) ?Left?Ventricle: Left ventricle size is normal. Normal wall thickness. Normal wall motion. Normal systolic function with a visually estimated EF of 55 - 60%. Unable to assess diastolic function due to inadequate/inaccruate Tissue Doppler data. ?Right?Ventricle: Right ventricle size is normal. Normal systolic function. ?Tricuspid?Valve: Right ventricular systolic pressure is normal. ?RA pressure is 0-5 mmHg. Left VentricleLeft ventricle size is normal. Normal wall thickness. Normal wall motion. Normal systolic function with a visually estimated EF of 55 - 60%. Unable to assess diastolic function due to inadequate/inaccruate Tissue Doppler data.Right VentricleRight ventricle size is normal. Normal systolic function.Left AtriumLeft atrium size is normal.Right AtriumRight atrium size is normal.IVC/SVCIVC diameter is less than or equal to 21 mm and decreases greater than 50% during inspiration; therefore the estimated right atrial pressure is normal (~0-5 mmHg).Mitral ValveMitral valve structure is normal. Trace transvalvular regurgitation.Tricuspid ValveTricuspid valve structure is normal. Trace transvalvular regurgitation. Right ventricular systolic pressure is normal. RA pressure is 0-5 mmHg.Aortic ValveTricuspid.Pulmonic ValveNot well visualized.Ascending AortaNormal sized aorta.PericardiumThe pericardium is normal. No pericardial effusion.Study DetailsStudy quality was adequate. A complete echocardiogram was performed using 2D, color flow Doppler and spectral Doppler. [facility] HEMOGLOBIN A1C [id number] 15:26:00 Test Item Value Reference Range Interpretation Comments POCT HBA1C (test code = 4548-4) 8.7 % 4-6 A Lab Interpretation (test code = Abnormal 86628-9) [facility] HEMOGLOBIN A1C [id number] 15:26:00 Test Item Value Reference Range Interpretation Comments POCT HBA1C (test code = 4548-4) 8.7 % 4-6 A Lab Interpretation (test code = Abnormal 87072-9) [facility] HEMOGLOBIN A1C [id number] 20:09:00 Test Item Value Reference Range Interpretation Comments POCT HBA1C (test code = 4548-4) 7.5 % 4-6 A Lab Interpretation (test code = Abnormal 51304-1) [facility] Notes Date/Time Note Provider Source 2022-10-16 Formatting of this note might be differe nt from the original. Brandon Martinez RN [facility] 15:26:51-00:00 Patient scheduled for f/u breast imaging 11/07/19 23. 2022-10-10 Formatting of this note might be differe nt from the original. IM-CARDIOVASCULAR [facility] 17:05:44-00:00 Communication has been sent to the patient already through results management and [employer]. DISEASE STAFF Thanks a lot Meliza 2022-10-09 Formatting of this note might be differe nt from the original. Emmy Martinez MA [facility] 13:19:55-00:00 Images from the original note were not included. [facility] Sal[facility] Sloan MD P Cardiology Nurse Echo showed normal heart mus sony with normal pumping function as well as normal heart valves. This is reassuring. No need for further cardiac work up and no need to make any changes in current medications Electronically signed by Emmy Martinez MA a t 10/09/2022 1:20 PM CDT 2022-09-30 [facility] 17::31-00:00 NOV: 12/06/22 SKYLAR: 06/04/22 Refill sent T 2022-09-30 Message from [facility]: [facility] 17::23-00:00 Refills have been requested for the following me dications: tirzepatide (MOUNJARO) 5 mg/0.5 mL PnIj [Smita triplett] Preferred pharmacy: [id number] Delivery method: Pickup T 2022-09-13 Formatting of this note is different from the or iginal. [facility] 13:45:00-00:00 Images from the original note were not included. Venipuncture collection perf ormed by clean technique on the right anticubitus. Total of 1 attempts were made. Slight pressure and a bandage/dressing were applied to the site(s). The patient experienced no complications. The follow ing specimens were processed according to instructions and sent to [facility] laboratories per lab order on 09/13/2022: LT BLUE SST RED LAV 1 PPT DK GREEN (LiHep) DK GREEN (SodH) BRADY DK BLUE (K2) DK BLUE (S) ACD Blood Culture NIPT/NTD Electronically signed by Cleopatra Gomez MA a t 09/13/2022 2:07 PM CDT 2022-09-10 Formatting of this note might be differe nt from the original. Brandon Martinez RN [facility] 14:13:20-00:00 See telephone encounter 09/10/22. Brandon Martinez RN 09/10/2022 2:13 PM 2022-09-10 Formatting of this note might be differe nt from the original. Maria Fernanda Dent [facility] 14:08:50-00:00 Please see telephone encount er from 09/10/2022.MARIA FERNANDA DENT RN 09/10/2022 2:09 PM RN 2022-09-10 Formatting of this note is different fro m the original. Brandon Martinez RN [facility] 14:06:16-00:00 Contacted patient regarding results. See provider note: Aleshia Olson MD 09/07/2022 3:10 PM CDT Screening mammogram shows an abnormality. Recommend further imaging with breast left needed.Also they comment that prior images needed for comparison. Patient states her last imag ining [facility] done at [facility]. Explained to patient she could contact their radiology department to request records. Patient given our radiology department number to give records to if possible. Patient verbalized understanding. Brandon Martinez RN 09/10/2022 2:12 PM 2022-09-03 Formatting of this note might be differe nt from the original. Yesica Marina LVN [facility] 17:27:17-00:00 Patient did not want to comp lete the colon screening via telephone. Appointment scheduled with DIRECTOR HUMAN SERVICES for 09/13/22. 2022-08-28 Formatting of this note might be differe nt from the original. Fatoumata Navas [facility] 16:59:05-00:00 Needing colon screening. Electronically signed by Fatoumata Navas at 08/10 4:59 PM CDT
[2022-10-26 11:31] LABS: Urine Bacteria <20 /HPF (<20); Urine Bilirubin NEGATIVE (Negative); Urine Blood Negative (Negative); Urine Clarity Extremely Turbid (Clear); Urine Color Yellow (Yellow); Urine Glucose TRACE (Negative); Urine Mucus 2+ /HPF (None Seen); Urine Protein 1+ (Negative); Urine RBC <5 /HPF (None Seen); Urine Urobilinogen 1+ (Normal); Urine pH 5.5 (5.0-7.0)
--- NOTE | 2022-10-26 11:48 | ER ---
Nurse's Notes [facility] Name: Rui Cartwright Age: 47 yrs Sex: Female : 1975 Arrival Date: 10/26/2022 Time: 10:03 Bed 19 Private MD: Diagnosis: Radiculopathy, lumbosacral region;Lumbago with sciatica, left side Presentation: 10/26 10:25 Chief complaint: Patient states: Left sided low back pain X 3 days - now the pain is ld1 into left buttocks. Denies injury. Reports seeing spine doctor, received tylenol 3 - does not relieve pain. Coronavirus screen: At this time, the client does not indicate any symptoms associated with coronavirus-19. Ebola Screen: No symptoms or risks identified at this time. Initial Sepsis Screen: Does the patient meet any 2 criteria? No. Patient's initial sepsis screen is negative. Does the patient have a suspected source of infection? No. Patient's initial sepsis screen is negative. Risk Assessment: Do you want to hurt yourself or someone else? Patient reports no desire to harm self or others. Onset of symptoms was October 26, 2022. 10:25 Method Of Arrival: Ambulatory ld1 10:25 Acuity: KATE 3 ld1 Triage Assessment: 10:26 General: Appears in no apparent distress. uncomfortable, Behavior is calm, cooperative, ld1 appropriate for age. Pain: Complains of pain in left low back, gluteal cleft, left lower back and left gluteus edna Pain does not radiate. Pain currently is 10 out of 10 on a pain scale. Quality of pain is described as sharp, shooting, throbbing, Pain began 2-3 days ago. Is continuous. EENT: No signs and/or symptoms were reported regarding the EENT system. Neuro: Level of Consciousness is awake, alert, obeys commands, Oriented to person, place, time, situation. Cardiovascular: Capillary refill < 3 seconds Patient's skin is warm and dry. Respiratory: Airway is patent Respiratory effort is even, unlabored. GI: Abdomen is round non-distended. : No signs and/or symptoms were reported regarding the genitourinary system. Derm: No signs and/or symptoms reported regarding the dermatologic system. Musculoskeletal: Reports pain in back and buttocks. Historical: - Allergies: 10:26 shrimp; ld1 - PMHx: 10:26 Anxiety; diabetes mellitus; High Cholesterol; Hypertensive disorder; Hypothyroidism; ld1 - PSHx: 10:26 section; ld1 - Immunization history:: Adult Immunizations up to date. - Social history:: Smoking status: Patient denies any tobacco usage or history of. Patient/guardian denies using alcohol. Screenin:28 [facility] ED Fall Risk Assessment (Adult) History of falling in the last 3 months, ld1 including since admission No falls in past 3 months (0 pts). Abuse screen: Denies threats or abuse. Denies injuries from another. Nutritional screening: No deficits noted. Tuberculosis screening: No symptoms or risk factors identified. Assessment: 10:28 Reassessment: See triage assessment. ld1 Vital Signs: 10:25 BP 127 / 88; Pulse 91; Resp 18; Temp 97.6(O); Pulse Ox 98% on R/A; Weight 83.91 kg; ld1 Height 5 ft. 4 in. ; Pain 10/10; 11:02 BP 119 / 79; Pulse 86; Resp 18; Pulse Ox 99% on R/A; ld1 10:25 Body Mass Index 31.75 (83.91 kg, 162.56 cm) ld1 10:25 Pain Scale: Adult ld1 ED Course: 10:09 Patient arrived in ED. mg5 10:23 Dorene Niño FNP-C is PHCP. snw 10:23 Hugo Hayes MD is Attending Physician. snw 10:25 Fatoumata Mathew, SHAY is Primary Nurse. ld1 10:26 Triage completed. ld1 10:26 Arm band placed on right wrist. ld1 10:28 Patient has correct armband on for positive identification. Placed in gown. Bed in low ld1 position. Call light in reach. Side rails up X2. Pulse ox on. NIBP on. Door closed. Noise minimized. Warm blanket given. 10:28 No provider procedures requiring assistance completed. ld1 12:12 Patient did not have IV access during this emergency room visit. me1 Administered Medications: 11:56 Drug: Ketorolac IM 30 mg Route: IM; Site: left gluteus; me1 11:56 Drug: Diazepam PO 5 mg Route: PO; me1 Medication: 10:28 VIS not applicable for this client. ld1 Outcome: 11:47 Discharge ordered by . bibi 12:12 Discharged to home ambulatory. me1 12:12 Condition: stable 12:12 Discharge instructions given to patient, Instructed on discharge instructions, follow up and referral plans. Demonstrated understanding of instructions, follow-up care. 12:12 Patient left the ED. me1 Signatures: Dorene Niño, SHADE MAKER-C SHADE MAKER-Csnw Fatoumata Mathew RN RN ld1 Buffy Buitrago RN RN me1 Zoila Cruz mg5
--- NOTE | 2022-10-26 11:48 | EDPHYS ---
Physician Documentation [facility] Name: uRi Cartwright Age: 47 yrs Sex: Female : 1975 Arrival Date: 10/26/2022 Time: 10:03 Bed 19 Private MD: ED Physician Hugo Hayes HPI: 10/26 11:55 This 47 yrs old Female presents to ER via Ambulatory with complaints of Low snw Back Pain. 11:55 The patient presents with pain that is acute, with no known mechanism of injury. The snw symptoms are located in the low back. The pain radiates to the left gluteus edna. The problem was sustained from unknown cause. Onset: The symptoms/episode began/occurred acutely. Associated signs and symptoms: The patient has no apparent associated signs or symptoms. The patient has experienced similar episodes in the past, multiple times. saw a inventory management specialist recently with negative findings. Historical: - Allergies: 10:26 shrimp; ld1 - PMHx: 10:26 Anxiety; diabetes mellitus; High Cholesterol; Hypertensive disorder; Hypothyroidism; ld1 - PSHx: 10:26 section; ld1 - Immunization history:: Adult Immunizations up to date. - Social history:: Smoking status: Patient denies any tobacco usage or history of. Patient/guardian denies using alcohol. ROS: 11:55 Constitutional: Negative for fever, chills, and weight loss, Eyes: Negative for injury, snw pain, redness, and discharge, ENT: Negative for injury, pain, and discharge, Neck: Negative for injury, pain, and swelling, Cardiovascular: Negative for chest pain, palpitations, and edema, Respiratory: Negative for shortness of breath, cough, wheezing, and pleuritic chest pain, Abdomen/GI: Negative for abdominal pain, nausea, vomiting, diarrhea, and constipation, : Negative for injury, bleeding, discharge, and swelling, MS/Extremity: Negative for injury and deformity, Skin: Negative for injury, rash, and discoloration, Neuro: Negative for headache, weakness, numbness, tingling, and seizure, Psych: Negative for depression, anxiety, suicide ideation, homicidal ideation, and hallucinations. 11:55 Back: Positive for pain at rest, pain with movement, radiated pain. Exam: 11:53 Constitutional: This is a well developed, well nourished patient who is awake, alert, snw and in no acute distress. Head/Face: Normocephalic, atraumatic. Eyes: Pupils equal round and reactive to light, extra-ocular motions intact. Lids and lashes normal. Conjunctiva and sclera are non-icteric and not injected. Cornea within normal limits. Periorbital areas with no swelling, redness, or edema. ENT: Nares patent. No nasal discharge, no septal abnormalities noted. Tympanic membranes are normal and external auditory canals are clear. Oropharynx with no redness, swelling, or masses, exudates, or evidence of obstruction, uvula midline. Mucous membranes moist. Neck: Trachea midline, no thyromegaly or masses palpated, and no cervical lymphadenopathy. Supple, full range of motion without nuchal rigidity, or vertebral point tenderness. No Meningismus. Chest/axilla: Normal chest wall appearance and motion. Nontender with no deformity. No lesions are appreciated. Cardiovascular: Regular rate and rhythm with a normal S1 and S2. No gallops, murmurs, or rubs. Normal PMI, no JVD. No pulse deficits. Respiratory: Lungs have equal breath sounds bilaterally, clear to auscultation and percussion. No rales, rhonchi or wheezes noted. No increased work of breathing, no retractions or nasal flaring. Abdomen/GI: Soft, non-tender, with normal bowel sounds. No distension or tympany. No guarding or rebound. No evidence of tenderness throughout. Skin: Warm, dry with normal turgor. Normal color with no rashes, no lesions, and no evidence of cellulitis. MS/ Extremity: Pulses equal, no cyanosis. Neurovascular intact. Full, normal range of motion. Neuro: Awake and alert, GCS 15, oriented to person, place, time, and situation. Cranial nerves II-XII grossly intact. Motor strength 5/5 in all extremities. Sensory grossly intact. Cerebellar exam normal. Normal gait. Psych: Awake, alert, with orientation to person, place and time. Behavior, mood, and affect are within normal limits. 11:53 Back: pain, that is moderate, of the left low back, ROM is painful, normal spinal alignment noted, CVA tenderness, is absent, muscle spasm, is appreciated in the low back area. Vital Signs: 10:25 BP 127 / 88; Pulse 91; Resp 18; Temp 97.6(O); Pulse Ox 98% on R/A; Weight 83.91 kg; ld1 Height 5 ft. 4 in. ; Pain 11/19; 11:02 BP 119 / 79; Pulse 86; Resp 18; Pulse Ox 99% on R/A; ld1 10:25 Body Mass Index 31.75 (83.91 kg, 162.56 cm) ld1 10:25 Pain Scale: Adult ld1 MDM: 10:23 Patient medically screened. snw 11:53 Differential diagnosis: arthritis, strain, sciatica. Data reviewed: vital signs, nurses snw notes. I considered the following discharge prescriptions or medication management in the emergency department Medications were administered in the Emergency Department. See MAR. Care significantly affected by the following chronic conditions: Diabetes, Hypertension, thyroid dysfunction. Counseling: I had a detailed discussion with the patient and/or guardian regarding the historical points, exam findings, and any diagnostic results supporting the discharge/admit diagnosis, lab results, the need for outpatient follow up, for definitive care, to return to the emergency department if symptoms worsen or persist or if there are any questions or concerns that arise at home. Special discussion: Based on the history and exam findings, there is no indication for further emergent testing or inpatient evaluation. I discussed with the patient/guardian the need to see the back specialist for further evaluation of the symptoms. I discussed with the patient/guardian the need to see the primary care provider for further evaluation of the symptoms. 10/26 10:39 Order name: Urine W/Microscopic (UAM); Complete Time: 11:37 snw Administered Medications: 11:56 Drug: Ketorolac IM 30 mg Route: IM; Site: left gluteus; me1 11:56 Drug: Diazepam PO 5 mg Route: PO; me1 Disposition Summary: 10/26/22 11:47 Discharge Ordered Location: Home snw Condition: Stable snw Diagnosis - Radiculopathy, lumbosacral region snw - Lumbago with sciatica, left side snw Followup: snw - With: Emergency Department - When: As needed - Reason: Worsening of condition Followup: snw - With: Private Physician - When: 2 - 3 days - Reason: Recheck today's complaints, Continuance of care, Re-evaluation by your physician Discharge Instructions: - Discharge Summary Sheet snw - Lumbosacral Radiculopathy snw - Sciatica snw Forms: - Work release form snw - Medication Reconciliation Form snw - Thank You Letter snw - Antibiotic Education snw - Prescription Opioid Use snw - Patient Portal Instructions snw - Leadership Thank You Letter snw Prescriptions: - Diclofenac Sodium 75 mg Oral Tablet Sustained Release - take 1 tablet by ORAL route 2 times per day; 30 tablet; Refills: 0, Product snw Selection Permitted - orphenadrine citrate 100 mg Oral Tablet Sustained Release - take 1 tablet by ORAL route 2 times per day As needed; 20 tablet; Refills: 0, snw Product Selection Permitted Signatures: Dispatcher [employer] EDDorene Wilkes, SLIP MAKER-C SLIP MAKER-Csnw Fatoumata Mathew, RN RN ld1 Buffy Buitrago RN RN me1
[2022-10-26] MEDS ORDERED: DIAZEPAM 5 MG TABLET ONE (12:00)
[2022-10-26] MEDS ORDERED: KETOROLAC 30 MG/ML INJ ONE (12:00)
[2022-10-26 12:18] VITALS: BP 119/79; TEMP 97.6; O2SAT 99
== END 2022-10-26 12:12 | disposition home or self-care (01) ==
LOC: ER 10:03
DX: M54.17 Radiculopathy, lumbosacral region (principal); M54.42 Lumbago with sciatica, left side; Z91.013 Allergy to seafood
CPT/HCPCS: 81001; 96372; 99284